=== PATIENT | female | born 1955 | race Caucasian/White ===

== ENCOUNTER 2023-04-07 15:41 | Outpatient (CLI) | payer MEDICARE, SELFPAY ==
[2023-04-10 12:48] LABS: NIL 0.01 IU/mL; Quantiferon TB Plus, 1T NEGATIVE (NEGATIVE)
== END 2023-04-07 15:42 | disposition home or self-care (01) ==
DX: Z79.899 Other long term (current) drug therapy (principal)
CPT/HCPCS: 36415; 86480

== ENCOUNTER 2023-04-26 12:13 | Emergency (ER) | payer MEDICARE, OTHER, SELFPAY ==
--- NOTE | ~2023-04-26 | XR_ITS ---
XR knee LT 3V 04/26/2023 12:49 Indication: Left knee pain Procedure: 3 views left knee Comparison: No prior studies for comparison. Findings: There is a medial unicompartmental left knee arthroplasty. There is sclerosis surrounding t he tibial component of the arthroplasty. Underlying fracture is not excluded. There is mild patellofe moral compartment osteoarthritis. No significant joint effusion. Impression: 1: Geographic sclerosis surrounding the tibial component of the left knee hemiarthroplasty. Underlyin g fracture not excluded. Reviewed, dictated and finalized at location B. Impression: 1: Geographic sclerosis surrounding the tibial component of the left knee hemia rthroplasty. Underlying fracture not excluded.
[2023-04-26 12:20] VITALS: BP 131/83; PULSE 79; RESP 18; TEMP 36.6; O2SAT 97
--- NOTE | 2023-04-26 13:08 | ED.GENADULT ---
HPI - General Adult General Chief complaint: Extremity Injury, Lower Stated complaint: Fall/knee pain Time Seen by Provider: 04/26/23 12:16 History of Present Illness HPI narrative: 67-year-old female presenting with left knee pain. Patient states she fell greater than 1 week ago. She states she fell down onto her knee. She states she has been experiencing pain in the left knee since that time. She denies any other injuries. Related Data Home Medications Medication Instructions Recorded Confirmed albuterol sulfate 90 mcg/actuation 1 puff inhalation Q4H PRN SOB 03/02/23 04/26/23 aerosol inhaler alprazolam 0.5 mg tablet 0.5 mg PO DAILY PRN Anxiety 03/02/23 04/26/23 fluticasone furoate 200 1 inh inhalation DAILY 03/02/23 04/26/23 mcg-vilanterol 25 mcg/dose inhalation powder (Breo Ellipta) gabapentin 300 mg capsule 300 mg PO DAILY PRN Pain 03/02/23 04/26/23 ibuprofen 800 mg tablet 800 mg PO BID PRN Pain 03/02/23 04/26/23 secukinumab 150 mg/mL subcutaneous 300 mg subcut .[id number] 03/02/23 04/26/23 pen injector (Cosentyx Pen 300 mg/2 Pens () Allergies Allergy/AdvReac Type Severity Reaction Status Date / Time bupropion Allergy Intermediate Hives Verified 04/26/23 12:32 cephalexin Allergy Intermediate Hives Verified 04/26/23 12:32 codeine AdvReac Mild Gastrointestinal Verified 04/26/23 12:32 Upset Prednisone Allergy Mild Other Uncoded 04/26/23 12:32 [facility] Past Medical History Medical History Allergies Anxiety Arthritis Asthma Psoriasis Family History Family History Mother Cancer Alcoholism Father Heart disease Sibling Heart disease Social History Social History Social History: Caffeine-coffee daily Years smoked: 20 Smoking status: Current every day smoker Tobacco type: cigarettes Alcohol intake: never Substance use: never Substance use type: does not use Lack of Transportation: No Lack of Food: Never True Current Housing: I Have Housing Concerned About Future Housing: No Difficulty Paying Gas/Electric Bills: No Difficulty Paying for Meds: No Currently Unemployed: No Education: Associate Degree Difficulty w/ Childcare or Family Care: No Living arrangements: with family Gender identity (if verbalized by the patient): Female Exam Narrative: Mild tenderness to palpation of the left knee. No palpable deformities. Neurovascularly intact. All other systems otherwise unremarkable and negative. Course Vital Signs Vital signs: Vital Signs Temperature 36.6 C 04/26/23 12:20 Pulse Rate 79 04/26/23 12:20 Respiratory Rate 18 04/26/23 12:20 Blood Pressure 131/83 04/26/23 12:20 Pulse Oximetry 97 04/26/23 12:20 Oxygen Delivery Room Air 04/26/23 12:20 Temperature 36.6 C 04/26/23 12:20 Pulse Rate 79 04/26/23 12:20 Respiratory Rate 18 04/26/23 12:20 Blood Pressure 131/83 04/26/23 12:20 Pulse Oximetry 97 04/26/23 12:20 Oxygen Delivery Room Air 04/26/23 12:20 Medical Decision Making MDM Narrative Medical decision making narrative: My interpretation official read of the imaging is inconclusive. Possible fracture. Could also be soft tissue injury. Will place in knee immobilizer and have patient follow Ortho. patient appears well. She is nontoxic appearing. She has no red flag symptomatology. She feels safe to proceed outpatient management. Vital Signs Vital Signs: Vital Signs Temperature 36.6 C 04/26/23 12:20 Pulse Rate 79 04/26/23 12:20 Respiratory Rate 18 04/26/23 12:20 Blood Pressure 131/83 04/26/23 12:20 Pulse Oximetry 97 04/26/23 12:20 Oxygen Delivery Room Air 04/26/23 12:20 Temperature 36.6 C 04/26/23 12:20 Pulse Rate 79 04/26/23 12:20 Respiratory Rate 18 04/26/23 12:20 Blood Pressu
[2023-04-26 13:58] VITALS: BP 106/73; PULSE 82; RESP 18; TEMP 36.8; O2SAT 96
--- NOTE | 2023-04-26 15:59 | PC.NURSE ---
On 04/26/23, the student, [SHREE BROWNING ], provided care and completed [facility] documentation on this patient. I have reviewed the student's documentation and agree with the findings.
== END 2023-04-26 14:00 | disposition home or self-care (01) ==
PROVIDERS: Emergency Provider Emergency Medicine; PCP Internal Medicine
DX: M25.562 Pain in left knee (principal); Z79.1 Long term (current) use of non-steroidal anti-inflammatories (NSAID); Z79.899 Other long term (current) drug therapy; F17.210 Nicotine dependence, cigarettes, uncomplicated; W19.XXXA Unspecified fall, initial encounter
CPT/HCPCS: 73562; 99283; L1830

== ENCOUNTER 2023-04-30 10:19 | Outpatient (CLI) | payer MEDICARE, SELFPAY ==
--- NOTE | ~2023-04-30 | CT_ITS ---
EXAMINATION: CT knee LT wo con DATE: 04/30/2023 10:50 INDICATION: Left knee pain. TECHNIQUE: Computed tomography (CT) of the left knee was performed without intravenous contrast. Auto mated exposure control and iterative reconstruction technique were employed. The dose-length product was 450.08 mGy-cm. COMPARISON: Left knee radiographs 04/26/2023 FINDINGS: There is varus angulation at the knee. There is a medial compartment arthroplasty with subs idence of the tibial component. There is periprosthetic sclerosis in the tibia. No periprosthetic dat ency. No acute fracture. There is mild osteoarthritis of lateral and patellofemoral compartments. The re is a small knee joint effusion with loose bodies. IMPRESSION: 1. Medial compartment arthroplasty with subsidence of the tibial component. 2. Mild left knee osteoarthritis. 3. Small left knee joint effusion with loose bodies. Reviewed, dictated and finalized at location E.
== END 2023-04-30 10:20 | disposition home or self-care (01) ==
LOC: CHSIMG 10:21
PROVIDERS: Visit Provider Orthopaedic Surgery
DX: S89.92XA Unspecified injury of left lower leg, initial encounter (principal); M25.562 Pain in left knee; Z96.652 Presence of left artificial knee joint; M17.12 Unilateral primary osteoarthritis, left knee; M25.462 Effusion, left knee; M23.42 Loose body in knee, left knee
CPT/HCPCS: 73700

== ENCOUNTER 2023-05-19 14:27 | Outpatient (CLI) | payer MEDICARE, OTHER, SELFPAY ==
[2023-05-19 15:28] LABS: CRP < 0.5 mg/dL (0.0-0.9)
[2023-05-19 15:45] LABS: Erythrocyte Sedimentation Rate 20 mm/hr (0-20)
== END 2023-05-19 14:28 | disposition home or self-care (01) ==
LOC: CHSLAB 14:31
PROVIDERS: PCP Family Medicine; Visit Provider Orthopaedic Surgery
DX: M25.562 Pain in left knee (principal)
CPT/HCPCS: 36415; 85652; 86140

== ENCOUNTER 2023-08-13 13:55 | Outpatient (CLI) | payer MEDICARE, OTHER, SELFPAY ==
[2023-08-13 15:32] LABS: Hemoglobin A1C 5.3 % (<5.7)
[2023-08-13 15:34] LABS: Urine Cotinine NEGATIVE
[2023-08-13 16:32] LABS: MRSA (PCR) NOT DETECTED (NOT DETECTE)
== END 2023-08-13 13:56 | disposition home or self-care (01) ==
LOC: ANHSURGERY 13:59
PROVIDERS: PCP Family Medicine; Visit Provider Orthopaedic Surgery
DX: T84.093A Other mechanical complication of internal left knee prosthesis, initial encounter (principal); Z01.818 Encounter for other preprocedural examination
CPT/HCPCS: 80307; 83036; 87081; 87641

== ENCOUNTER 2023-08-17 10:38 | Outpatient (CLI) | payer MEDICARE, OTHER, SELFPAY | END 2023-08-17 10:39 | disposition home or self-care (01) | LOC: ANHLAB 10:43 | PROVIDERS: PCP Family Medicine; Visit Provider Orthopaedic Surgery | DX: Z01.818 Encounter for other preprocedural examination (principal); T84.093A Other mechanical complication of internal left knee prosthesis, initial encounter | CPT/HCPCS: 87081 ==

== ENCOUNTER 2023-09-01 10:04 | Inpatient (IN) | payer MEDICARE, OTHER, SELFPAY ==
--- NOTE | 2023-08-13 07:45 | PC.NURSE ---
PT ATTENDED TOTAL JOINT CLASS 07/07/23 PRIOR TO SURGERY DATE SCHEDULED
--- NOTE | 2023-08-13 13:50 | PC.NURSE ---
PRE-OP INSTRUCTIONS, PLEASE READ CAREFULLY Report to the Outpatient Waiting Room, entrance under the green pavilion located off [facility], at time _0600_ on date _09/01/23_. Planned Procedure Time: _0730_. PACK A SMALL OVERNIGHT BAG AND LEAVE IN THE CAR ALONG WITH YOUR WALKER Time changes happen often and if your time is changed the preop area will call you the afternoon before. - You and your visitor will be asked to self-screen and do not enter if you have any COVID symptoms. - A mask is optional within the hospital at this time. -VISITING HOURS 8AM-8PM Patients may have clear liquids (water, carbonated beverages, clear teas, apple juice) until 3 hours prior to surgery (0430 AM) with a maximum of 20 ounces. - No food from midnight until time of surgery Take the following medications with a SIP of water the morning of surgery: __BREO ELLIPTA INHALER, & ALPRAZOLAM, GABAPENTIN, ALBUTEROL INHALER IF NEEDED DO NOT STOP ANY OF YOUR OTHER PRESCRIPTION MEDICATIONS PRIOR TO SURGERY ?EXCEPT THE FOLLOWING Medications to discontinue per DR. GEE - _IBUPROFEN 7 DAYS PRIOR TO SURGERY, Date to take last dose 08/24/23_ Medications to discontinue per ANESTHESIA - _MULTIVITAMIN & SUPPLEMENTS 3 DAYS PRIOR TO SURGERY, Date to take last dose 08/28/23_ Please no make-up, nail kazakh, hairspray, perfume, deodorant, or body powder the day of surgery. No jewelry (including any body piercings) or valuables the day of surgery, leave them at home. Please take a shower or bath the night before, or the morning of, surgery with an antibacterial soap. Wear comfortable, loose fitting clothing. - Jewelry must be removed prior to entering the operating room. Rings and piercings that are not removed may be cut off. - The hospital will not accept responsibility for valuables. - Please leave all valuables, including medications, at home the day of surgery. If you are going home after surgery, a licensed commercial front load driver must drive you home. - NO public transportation without another adult if you receive anesthesia. - We recommend that an adult stay with you for 24 hours following discharge. - We also recommend that you do not drive, make important decision, drink alcoholic beverages, or take any drugs that were not prescribed by your health care provider for at least 24 hours after your discharge time. Follow any additional instructions given to you from your surgeon. If you or anyone in your household have experienced Covid symptoms in the past week, please notify your surgeon or the nurse liaison at the phone number below for possible testing. Instructions given to _PATIENT_and asked if any additional questions and then verbalized understanding. Patient advised to call surgeon office or pre surgery nurse liaison [phone] if any additional questions.
[2023-08-13 14:24] VITALS: BP 136/70; PULSE 70; RESP 18; TEMP 36.8; O2SAT 100; BMI 34.1
--- NOTE | 2023-08-30 12:02 | PM.IMHP ---
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 Ely who presents today for revision of her left knee. She underwent partial knee replacement in 2007. She has had subsidence of the tibial component and is having severe pain in the due to that. [place] Patient has been having continued symptoms of pain in the knee and feels at this point she feels she is ready to proceed with revision on her left knee. Review of Systems Review of Systems: All systems reviewed & are unremarkable except as noted in HPI and below PMFSH Past Medical History Medical History Allergies Anxiety Arthritis Asthma Psoriasis Family History Family History Mother Cancer Alcoholism Father Heart disease Sibling Heart disease Social History Social History Social History: Caffeine-coffee daily Smoking packs per day: 1 Smoking cigarettes per day: 20.0 Years smoked: 20 Smoking pack-years: 20.00 Smoking status: Former smoker Tobacco type: cigarettes Second hand tobacco smoke exposure: No Smoking end date: 06/02/23 Additional smoking assessment comments: PT DENIES ALL FORMS OF TOBACCO USE Alcohol intake: current Alcohol use details: 2/MONTH Substance use: never Substance use type: does not use Lack of Transportation: No Lack of Food: Never True Current Housing: I Have Housing Concerned About Future Housing: No Difficulty Paying Gas/Electric Bills: No Difficulty Paying for Meds: No Currently Unemployed: No Education: Associate Degree Difficulty w/ Childcare or Family Care: No Living arrangements: with family Gender identity (if verbalized by the patient): Female Spiritual care concerns: No Meds Home Medications and Allergies Home Medications Medication Instructions Recorded Confirmed Type albuterol sulfate 90 mcg/actuation 1 puff inhalation Q4H PRN SOB 03/02/23 08/13/23 History aerosol inhaler alprazolam 0.5 mg tablet 0.5 mg PO DAILY PRN Anxiety 03/02/23 08/13/23 History fluticasone furoate 200 1 inh inhalation DAILY 03/02/23 08/13/23 History mcg-vilanterol 25 mcg/dose inhalation powder (Breo Ellipta) gabapentin 300 mg capsule 300 mg PO DAILY PRN Pain 03/02/23 08/13/23 History ibuprofen 800 mg tablet 800 mg PO BID PRN Pain 03/02/23 08/13/23 History secukinumab 150 mg/mL subcutaneous 300 mg subcut .[id number] 03/02/23 08/13/23 History pen injector (Cosentyx Pen 300 mg/2 Pens () Mortin/Tylenol See Rx Instructions .Route 08/13/23 08/13/23 History .COMPLEX PRN Pain calcipotriene 0.005 1 applic topical DAILY PRN Skin 08/13/23 08/13/23 History %-betamethasone 0.064 % topical Irritation foam (Enstilar) cholecalciferol (vitamin D3) 50 50 mcg PO DAILY 08/13/23 08/13/23 History mcg (2,000 unit) capsule coQ10 (ubiquinol) 100 mg capsule 100 mg PO DAILY 08/13/23 08/13/23 History (Qunol Victorino CoQ10) methocarbamol 750 mg tablet 750 mg PO QID PRN Pain 08/13/23 08/13/23 History multivitamin 1 tablet DAILY 08/13/23 08/13/23 History mupirocin 2 % topical ointment 1 applic topical BID PRN Skin 08/13/23 08/13/23 History Irritation triamcinolone acetonide 0.1 % 1 applic topical BID PRN Skin 08/13/23 08/13/23 History topical cream Irritation Allergies Allergy/AdvReac Type Severity Reaction Status Date / Time bupropion Allergy Intermediate Hives Verified 08/24/23 09:28 cephalexin Allergy Intermediate Hives Verified 08/24/23 09:28 codeine AdvReac Mild Gastrointestinal Verified 08/24/23 09:28 Upset Prednisone Allergy Mild Other-psorasis Uncoded 08/24/23 09:28 flare Exam Narrative: Six 8-year-old female very alert pleasant.
--- NOTE | 2023-08-31 14:40 | WPDANESEPPF ---
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 Patient Data Age: 68 Gender: F Height: 1.64 m Weight: 91.6 kg Last Vital Signs Temp 98.3 F 08/13/23 14:24 Pulse 70 08/13/23 14:24 Resp 18 08/13/23 14:24 BP 136/70 08/13/23 14:24 Pulse Ox 100 08/13/23 14:24 O2 Del Method Room Air 08/13/23 14:24 Allergies Allergy/AdvReac Type Severity Reaction Status Date / Time bupropion Allergy Intermediate Hives Verified 09/01/23 06:20 cephalexin Allergy Intermediate Hives Verified 09/01/23 06:20 prednisone Allergy Mild Psoriasis Verified 09/01/23 06:20 flare codeine AdvReac Mild Gastrointestinal Verified 09/01/23 06:20 Upset Home Medications Medication Instructions Recorded Confirmed Type albuterol sulfate 90 mcg/actuation 1 puff inhalation Q4H PRN SOB 03/02/23 09/01/23 History aerosol inhaler alprazolam 0.5 mg tablet 0.5 mg PO DAILY PRN Anxiety 03/02/23 09/01/23 History fluticasone furoate 200 1 inh inhalation DAILY 03/02/23 09/01/23 History mcg-vilanterol 25 mcg/dose inhalation powder (Breo Ellipta) gabapentin 300 mg capsule 300 mg PO DAILY PRN Pain 03/02/23 09/01/23 History ibuprofen 800 mg tablet 800 mg PO BID PRN Pain 03/02/23 09/01/23 History secukinumab 150 mg/mL subcutaneous 300 mg subcut .[id number] 03/02/23 08/13/23 History pen injector (Cosentyx Pen 300 mg/2 Pens () Mortin/Tylenol See Rx Instructions .Route 08/13/23 09/01/23 History .COMPLEX PRN Pain calcipotriene 0.005 1 applic topical DAILY PRN Skin 08/13/23 09/01/23 History %-betamethasone 0.064 % topical Irritation foam (Enstilar) cholecalciferol (vitamin D3) 50 50 mcg PO DAILY 08/13/23 09/01/23 History mcg (2,000 unit) capsule coQ10 (ubiquinol) 100 mg capsule 100 mg PO DAILY 08/13/23 09/01/23 History (Qunol Victorino CoQ10) methocarbamol 750 mg tablet 750 mg PO QID PRN Pain 08/13/23 09/01/23 History multivitamin 1 tablet DAILY 08/13/23 09/01/23 History mupirocin 2 % topical ointment 1 applic topical BID PRN Skin 08/13/23 09/01/23 History Irritation triamcinolone acetonide 0.1 % 1 applic topical BID PRN Skin 08/13/23 09/01/23 History topical cream Irritation Patient hx anesthesia problems: none Family hx anesthesia problems: none Results Review: All pre-operative results and documents have been reviewed as part of the pre-operative evaluation. [facility] Past Medical History Medical History Allergies Anxiety Arthritis Asthma Psoriasis Family History Family History Mother Cancer Alcoholism Father Heart disease Sibling Heart disease Social History Social History Social History: Caffeine-coffee daily Smoking packs per day: 1 Smoking cigarettes per day: 20.0 Years smoked: 20 Smoking pack-years: 20.00 Smoking status: Former smoker Tobacco type: cigarettes Second hand tobacco smoke exposure: No Smoking end date: 06/02/23 Additional smoking assessment comments: PT DENIES ALL FORMS OF TOBACCO USE Alcohol intake: current Alcohol use details: 2/MONTH Substance use: never Substance use type: does not use Lack of Transportation: No Lack of Food: Never True Current Housing: I Have Housing Concerned About Future Housing: No Difficulty Paying Gas/Electric Bills: No Difficulty Paying for Meds: No Currently Unemployed: No Education: Associate Degree Difficulty w/ Childcare or Family Care: No Living arrangements: with family Gender identity (if verbalized by the patient): Female Spiritual care concerns: No Anes - Eval Final PreProcedure Day of Procedure
[2023-09-01] VITALS (12 sets, daily range): BP systolic 118–147; BP diastolic 52–72; PULSE 60–87; RESP 12–20; TEMP 36.2–36.9; O2SAT 97–100
--- NOTE | ~2023-09-01 | XR_ITS ---
XR_[id number] DATE: 09/01/2023 13:39 INDICATION: Revision of left total knee TECHNIQUE: Portable views including AP and crosstable lateral projections COMPARISON: None FINDINGS: Status post left knee arthroplasty with normal alignment of the femoral and tibial componen ts. No fracture or dislocation. There is expected subcutaneous and intra-articular emphysema shortly postoperatively. IMPRESSION: Left knee arthroplasty Reviewed, dictated and finalized at [facility]. Reviewed, dictated and finalized at [facility]. SON GEAR GENERATOR IMPRESSION: Left knee arthroplasty
[2023-09-01] MEDS: ACETAMINOPHEN 500 MG TABLET 1000 MG PO (06:29)
[2023-09-01] MEDS: LACTATED RINGERS 1,000 ML 30 ML IV CONT ×2 (06:50→13:34)
[2023-09-01] MEDS: VANCOMYCIN 1,250 MG/NS 250 ML BAG 166.67 MG IVPB (06:51)
--- NOTE | 2023-09-01 07:12 | WPDHPUPDATE1 ---
History and Physical Update Update Date/Time: 09/01/23 07:12 History and Physical has been reviewed, including an updated exam of the patient. There are NO changes in the patient's condition. Risks, benefits, and alternatives have been discussed and questions answered. Patient agrees to proceed with procedure.
[2023-09-01] MEDS: TRANEXAMIC ACID 1,000MG/ISO100 1,000 MG/100 ML BAG 200 MG IVPB (07:17)
[2023-09-01] MEDS: AZTREONAM 2 GM in SODIUM CHLORIDE 0.9% IV 100 ML 200 ML IVPB ×2 (07:50→12:19)
[2023-09-01] MEDS: VANCOMYCIN HCL 1,000 MG VIAL 1000 MG IRRIGATION (08:19)
[2023-09-01] MEDS: GENTAMICIN BONE CEMENT REFOBACIN 2 EACH TOPICAL (12:05)
[2023-09-01] MEDS: TRANEXAMIC ACID 1,000 MG/10 ML AMPUL 1000 MG IV PUSH (12:52)
--- NOTE | 2023-09-01 13:43 | PM.OP ---
Procedure Note - Brief Procedure Note - Brief Date of procedure: 09/01/23 failed L partial knee replacement Procedure performed: Revision left total knee arthroplasty Surgeon: MILAD Fisher Description of procedure: [age]-year-old female who underwent revision of her partial knee replacement left knee to a total knee replacement. Underwent the procedure on 09/01. I was involved in the procedure including positioning the patient on the OR table and 1st assisting to the time of surgery. Total time spent was 7 hours
[2023-09-01] MEDS: fentaNYL CITRATE INJ (*CRX) 100 MCG/2 ML VIAL 25 MCG IV PUSH ×4 (14:01→14:20)
[2023-09-01] MEDS: ONDANSETRON INJ 4 MG/2 ML VIAL IV PUSH (16:05)
[2023-09-01] MEDS: AZTREONAM 1 GM in SODIUM CHLORIDE 0.9% IV 50 ML 100 ML IVPB (16:06)
[2023-09-01] MEDS: ACETAMINOPHEN 325 MG TABLET 650 MG PO ×2 (16:07→19:39)
[2023-09-01] MEDS: oxyCODONE HCL (*CRX) 5 MG TAB IR PO ×2 (16:07→19:39)
[2023-09-01] MEDS: SENNA/DOCUSATE SODIUM TABLET 2 TAB PO (16:08)
--- NOTE | 2023-09-01 18:32 | W.PM.PROC2 ---
Procedure Note - Detailed Date of Procedure 09/01/23 Pre-op Diagnosis failed L partial knee replacement Post-op Diagnosis Same Procedure Performed Revision total knee arthroplasty left knee Surgeon Judah Gonzalez MD [employer] Specialist Vanessa Anesthesia General Description of Procedure Patient was brought to the operating room and general anesthesia was administered. The left knee was prepped draped usual fashion. She received 2 g of Aztreonam and weight based vancomycin preoperatively. Allergy to Keflex. The knee came out to full extension. She had medial pseudolaxity with endpoint due to the subsidence tibial implant. Limb was exsanguinated tourniquet elevated to 300 mmHg. Previous partial knee replacement incision was used and extended proximally for a standard parapatellar approach. A standard parapatellar arthrotomy was used. Quadriceps synovectomy was carried out and we were able to gradually kiki the patella without rectus snip. The patella had mild tomoderate medial facet cartilage loss that the far medial facet but cartilage of the apex and lateral facet was in good condition and I felt the patella was appropriate for non resurfacing provided that tracked properly. A limited lateral facetectomy was performed. Whitesides line was drawn on the femur. A guide cristobal was inserted down the femoral canal after aspiration of canal contents using the 5 degree valgus cutting bushing, 8 mm of bone removed the distal femur. This removed the same amount medially and laterally. The medial distal femoral cut was carried out until we had the anterior fixation peg of the femoral component which was well fixed. There was no granulation tissue in the knee and I did not see any good tissue that would be suitable for sending for culture biopsy. There was minimal clear effusion. We skeletonized the femoral component using a micro sagittal saw flexible quarter-inch osteotomes and when we had fixation essentially limited to the to fixation pegs, we applied the slap hammer device from the [place] partial knee replacement set and gently disimpacted the femoral component in line with the pegs and it came out without disrupting any of the bone stock. We had removed the tibial polyethylene insert already and we now addressed our attention to the tibial component. Tibial component had subsided into the medial tibial plateau was in prominent varus and mild anterior slope. We carefully peeled the medial capsule to a point just below the low point of the subsides defect in the medial tibial plateau. A microsagittal saw was used to eliminate the cement between the bone and prosthesis anteriorly and we removed the bone peripheral to the tibial component and we then inserted a 3 quarter-inch osteotome i under the anterior aspect of the tibial component and then used the stacked osteotome technique the half-inch osteotome above 3/4 inch and this gently lever the tibial component upward. There was a dense fibrous interface and the cement mantle came up with the tibial component. This left a sclerotic bone bed where there was dense sclerosis of the tibial plateau not to side of the component but throughout the metaphysis as we saw on the x-rays and CT scan. Next, the tibial plateau was cut. We removed between 9 and 10 mm of bone from the lateral plateau. Alignment and slope were confirmed. This left the substantial defect medially of course. We then applied the femoral sizing guide the distal femur. The mediolateral with was appropriate for the 62.5 vanguard femoral component. Bone density the femur was excellent as it was in the tibial plateau as well. We applied the femoral sizing guide at 4? of external rotation and this appeared to give appropriate sizing relative to the anterior cortex when the guide was rotated according to Whitesides line which gave us about a 7 mm space between the posterior aspect of the remaining medial femoral condyle which seemed appropriate this was pinned th
[2023-09-01] MEDS: VANCOMYCIN 1,000 MG/NS 250 ML 1,000 MG/250 ML BAG 250 MG IVPB (19:38)
[2023-09-01] MEDS: FAMOTIDINE 20 MG TABLET PO (19:44)
--- NOTE | 2023-09-01 20:20 | WPDCN ---
Assessment and Plan Assessment and plan (1) Failed total knee replacement: Code(s): T84.018A - Broken internal joint prosthesis, other site, initial encounter; Z96.659 - Presence of unspecified artificial knee joint Status: Acute Assessment and Plan: Postoperative day 0 status post revision left partial knee. Wound care, pain control, and DVT prophylaxis deferred to Dr. Gonzalez. (2) Psoriasis: Code(s): L40.9 - Psoriasis, unspecified Status: Acute Assessment and Plan: Resume Cosentyx when okay with surgeon. (3) Asthma: Code(s): J45.909 - Unspecified asthma, uncomplicated Status: Acute Assessment and Plan: No acute issues. Continue maintenance inhalers as prescribed. (4) Anxiety: Code(s): F41.9 - Anxiety disorder, unspecified Status: Acute Assessment and Plan: Resume alprazolam as needed. Plan Thank you for allowing us to participate in this patient's care. Please do not hesitate to contact us with any questions. HPI Data of Consult Date/Time: 09/01/23 20:20 Requesting Physician: Judah Gonzalez MD Consult Narrative Reason for consult: Medical management. Narrative: This is a very pleasant 68-year-old female with psoriasis on Cosentyx, asthma, anxiety, and arthritis whom the hospitalist service has been consulted for management of her medical conditions postoperatively. She underwent partial knee replacement 2007 and has had substance of the tibial component which is causing her severe pain. Due to continued symptoms she elected for revision today. Her surgery was performed under general anesthesia with no immediate complications documented an estimated blood loss of 400 cc. Her pain has been pretty well controlled but the block is starting to wear off. She has been getting up with therapy and is doing well. No fever, chills, sweats, chest pain, shortness a breath, nausea, or vomiting. Review of Systems Review of Systems: Twelve systems were reviewed. No history of venous thromboembolism. Except as documented, all other systems were reviewed and are negative. [facility] Past Medical History Medical History Allergies Anxiety Arthritis Asthma Mixed hearing loss, bilateral Psoriasis Surgical History Surgical History History of arthroscopy of both shoulders History of bowel resection For diverticulitis. History of hysterectomy History of lumbar fusion L4-S1. History of open reduction and internal fixation (ORIF) procedure Left hand. History of partial knee replacement (2007) Revision of failed left partial knee on 09/01/2023. History of right knee joint replacement Family History Family History Mother Cancer Alcoholism Father Heart disease Sibling Heart disease Social History Social History Social History: Surrogate medical decision maker: Jerald Sepulveda, spouse. Code status: Full code. Smoking packs per day: 1 Smoking cigarettes per day: 20.0 Years smoked: 20 Smoking pack-years: 20.00 Smoking status: Former smoker Second hand tobacco smoke exposure: No Alcohol intake: current Alcohol use details: 2 alcoholic beverages a month Substance use: never Substance use type: does not use Do You Feel Safe in your Home?: Yes Lack of Transportation: No Lack of Food: Never True Current Housing: I Have Housing Concerned About Future Housing: No Difficulty Paying Gas/Electric Bills: No Difficulty Paying for Meds: No Currently Unemployed: No Education: Associate Degree Difficulty w/ Childcare or Family Care: No Additional living arrangements comments: Lives with spouse in [place]. Additional occupation/education comments: Retired. [employer]
[2023-09-01] MEDS: FLUTICASONE/SALMETEROL 230-21 MCG INHALER 1 PUFF 2 PUFF INHALATION (20:50)
[2023-09-02] MEDS: AZTREONAM 1 GM in SODIUM CHLORIDE 0.9% IV 50 ML 100 ML IVPB ×2 (00:05→07:55)
[2023-09-02] MEDS: oxyCODONE HCL (*CRX) 5 MG TAB IR PO ×4 (00:07→10:56)
[2023-09-02] MEDS: ACETAMINOPHEN 325 MG TABLET 650 MG PO ×4 (00:07→10:55)
[2023-09-02 01:00] VITALS: BP 118/55; PULSE 76; RESP 18; TEMP 36.2; O2SAT 96
[2023-09-02 05:31] VITALS: BP 101/59; PULSE 63; RESP 21; TEMP 36.4; O2SAT 100
[2023-09-02] MEDS: diphenhydrAMINE HCl INJ 50 MG/ML VIAL 25 MG IV PUSH (06:20)
[2023-09-02] MEDS: VANCOMYCIN 1,000 MG/NS 250 ML 1,000 MG/250 ML BAG 250 MG IVPB (06:21)
[2023-09-02 06:50] LABS: Basophils Percent Auto 0.2 % (0.2-1.2); Hematocrit 30.7 % (37.0-47.0); Hemoglobin 9.8 g/dL (12.0-15.0); Immature Granulocyte Absolute 0.04 K/mm3 (0.00-0.031); Immature Granulocyte Percent A 0.3 % (0-0.5); Lymphocytes Absolute Auto 1.59 K/mm3 (0.9-3.2); Lymphocytes Percent Auto 11.6 % (18.3-44.2); Mean Corpuscular HGB Conc 31.9 g/dl (32-36); Mean Corpuscular Hemoglobin 30.2 pg (26-34); Mean Corpuscular Volume 94.5 fl (80-100); Mean Platelet Volume 9.9 fl (7.4-10.4); Monocytes Absolute Auto 1.1 K/mm3 (0.1-0.6); Neutrophils Percent Auto 79.9 % (45.5-73.1); Platelet Count Result 134 k/mm3 (150-375); Red Blood Count 3.25 M/mm3 (4.2-5.4); Red Cell Distribution Width 14.6 % (11.5-14.5); White Blood Count 13.7 K/mm3 (4.5-10.0)
[2023-09-02 07:07] LABS: Anion Gap 4 mmol/L (8-16); Blood Urea Nitrogen 21 mg/dL (7-17); Calcium 8.6 mg/dL (8.4-10.2); Carbon Dioxide 27 mmol/L (22-30); Chloride 109 mmol/L (98-107); Estimated CRCL calculation 76 ml/min; Estimated Glomerular Filt Rate > 60; Glucose 110 mg/dL (65-110); Magnesium 2.1 mg/dL (1.6-2.3); Potassium 3.9 mmol/L (3.4-5.0); Sodium 140 mmol/L (137-145)
--- NOTE | 2023-09-02 07:46 | WPDANESPN ---
Anes - Prog Note Post-Op Date/Time: 09/02/23 07:46 Cardiovascular status: normal Respiratory status: normal Airway patency: baseline Mental status: baseline Post-Op hydration status: normal Vital Signs: Last Vital Signs Temp 97.2 F L 09/02/23 01:00 Pulse 76 09/02/23 01:00 Resp 18 09/02/23 01:00 BP 118/55 L 09/02/23 01:00 Pulse Ox 96 09/02/23 01:00 O2 Del Method Room Air 09/01/23 14:45 O2 Flow Rate 8 09/01/23 13:50 Pain Score (VAS): 0/10 I/O: Intake & Output 09/01/23 09/01/23 09/02/23 15:59 23:59 07:59 Intake Total 750 1040 Balance 750 1040 Laboratory Tests 09/02/23 06:38 09/02/23 06:38 09/02/23 06:38 WBC 13.7 H RBC 3.25 L Hgb 9.8 L Hct 30.7 L MCV 94.5 MCH 30.2 MCHC 31.9 L RDW 14.6 H Plt Count 134 L MPV 9.9 Immature Gran % (Auto) 0.3 Neut % (Auto) 79.9 H Lymph % (Auto) 11.6 L [place] % (Auto) 8.0 Eos % (Auto) 0.0 Baso % (Auto) 0.2 Lymph # (Auto) 1.59 [place] # (Auto) 1.1 H Eos # (Auto) 0.0 Baso # (Auto) 0.0 Abs Immat Gran (auto) 0.04 H Absolute Neuts (auto) 11.0 H Absolute Nucleated RBC 0.0 Nucleated RBC % 0.0 Sodium 140 Potassium 3.9 Chloride 109 H Carbon Dioxide 27 Anion Gap 4 L BUN 21 H Creatinine 0.70 Estim Creat Clear Calc 76 Estimated GFR > 60 Glucose 110 Calcium 8.6 Magnesium 2.1 Post-procedural complaints: none Patient Feedback: Patient satisfied with anesthetic care.
[2023-09-02] MEDS: CELECOXIB 200 MG CAPSULE PO (08:09)
[2023-09-02] MEDS: DOXYCYCLINE HYCLATE 100 MG TABLET PO (08:09)
[2023-09-02] MEDS: FAMOTIDINE 20 MG TABLET PO (08:09)
[2023-09-02] MEDS: SENNA/DOCUSATE SODIUM TABLET 2 TAB PO (08:09)
[2023-09-02] MEDS: polyethylene glycoL 3350 17 GM POWD.PACK PO (08:09)
[2023-09-02] MEDS: APIXABAN 2.5 MG TABLET PO (08:09)
[2023-09-02] MEDS: CHOLECALCIFEROL 1,000 UNITS TABLET 2000 UNITS PO (08:11)
[2023-09-02] MEDS: FLUTICASONE/SALMETEROL 230-21 MCG INHALER 1 PUFF 2 PUFF INHALATION (09:31)
--- NOTE | 2023-09-02 10:57 | PM.PNORT ---
Progress Note: A&P Assessment and Plan (1) History of revision of total replacement of left knee joint: Code(s): Z96.652 - Presence of left artificial knee joint Status: Acute Plan patient is doing very well postop day 1 today at bedside we went over the complete total knee discharge instructions as follows: JANICE GEE M.D [facility], [place] [address] [place] [address] POST-OPERATIVE DISCHARGE INSTRUCTIONS TOTAL KNEE ARTHROPLASTY 1. When resting, do not rest in the chair.When resting, lie on your back, with back flat on the couch or bed, with leg elevated above heart to minimize swelling. You may put a pillow under your head. . Significant swelling could indicate a blood clot and if this occurs call the office (or go to the ER) to have a venous ultrasound. Therefore, do not rest in a chair. 2. At least five times a day spend several minutes stretching your knee into flexion while sitting in the chair and also stretching your knee out straight The abilities to bend your knee fulling and straighten your knee fully are two most important knee functions to focus on during your recovery. 3. It is ok to sit in chair to eat, use the toilet and receive a guest and to do your stretching exercises, but, sitting in a chair will cause your leg to swell. Therefore, avoid additional time sitting in the chair. and don't rest in the chair. 4. Wound Care: Nursing will give you an additional Mepilex dressing at the time of discharge. Patient to remove the dressing and apply a new Mepilex dressing at home 7 days after surgery and leave the dressing on until seen in office. 5. May shower with a Mepilex dressing in place.The water will run off the dressing. 6. Unless you are told otherwise, you may put full weight on your operated leg. Use a walker for balance and practice walking as normally as you can, ideally for a few minutes every hour while you are awake. 7. I would advise against putting ice packs on your knee incision. Ice constricts blood flow which can impar healing of the knee incision. IMPORTANT: Remember not to sit in the chair for more than 30 minutes at a time. As a rule, during the first 14 days after surgery, only sit in the chair to work on the chair knee bending stretch exercise, for meals or for use of the restroom. Sitting in the chair promotes significant swelling in the knee and leg which will make your knee stiff and more painful and which simulates having a blood clot in the veins of the leg. If this type of significant diffuse swelling occurs, an ultrasound at the hospital will be necessary to rule out a blood clot. Be up walking around with the walker for a few minutes every hour while awake and then rest laying on your back on the couch or in bed with your leg elevated on cushions or pillows. Do not rest in the chair. The patient will resume her home medication except for cosentix which she will hold off on for now. We cover the medications in detail today see discharge orders. The patient voiced understanding and agrees above plan she is ready for discharge to home. Subjective Subjective Date/Time Seen: 09/02/23 10:57 Interval history: Patient was seen today postop day 1 status post revision left total knee arthroplasty. Patient is doing very well. Walked in therapy easily today with the walker no complaints. Pain is well controlled. Vital signs are stable she is afebrile heating sleeping well. She is ready for discharge home by her report. Review of Systems Review of Systems: Ten point review of systems negative Exam Narrative: vital signs stable afebrile and neurovascularly intact wound clean and dry left knee calves are benign alert oriented x3. Normal mood and affect. Pain well controlled. Ambulating easily with a walker in therapy today. No other complaints. Objective Data Vital Signs Vital Signs: Vital
--- NOTE | 2023-09-02 11:15 | PM.DS ---
DS: Admitting Diagnosis Discharge Date September 02, 2023 Admitting Diagnosis admitting diagnosis-failed Uni arthroplasty left knee discharge Diagnosis same status post revision to a left total knee arthroplasty. DS: Summary Hospital Course Hospital Course: The patient was admitted overnight for observation and pain control status post revision to a left total knee arthroplasty performed by Dr. Gonzalez. surgery was performed September 01, 2023. Postop day 1 the patient was doing very well pain was well-controlled vital signs are stable she was afebrile and neurovascularly intact wound clean and dry calves benign she is alert oriented x3. Normal mood and affect. Eating and sleeping well. Was up ambulating independently with a walker weight-bearing as tolerated was able walk several 100 ft in therapy and quite comfortable. At bedside today we went over the discharge instructions as listed below. She was to be discharged home in good condition September 02, 2023 she will have outpatient physical therapy in [facility] starting tomorrow. She will follow up with Dr. Gonzalez in 2 weeks for recheck and call the office immediately at [phone] for any problems difficulties or questions she voiced understanding and agrees with the above plan. Time Spent with Patient Time attestation: Total time spent providing and/or coordinating discharge services: Exam Narrative: Vital signs stable afebrile neurovascular intact wound clean and dry calves benign alert oriented x3. Normal mood and affect. Ambulating well in therapy pain well controlled no complaints postop day 1. DS: Data Data Completed and Pending Labs on day of discharge: Labs from last 24 hours 09/02/23 06:38 WBC 13.7 H RBC 3.25 L Hgb 9.8 L Hct 30.7 L MCV 94.5 MCH 30.2 MCHC 31.9 L RDW 14.6 H Plt Count 134 L MPV 9.9 Immature Gran % (Auto) 0.3 Neut % (Auto) 79.9 H Lymph % (Auto) 11.6 L Motley % (Auto) 8.0 Eos % (Auto) 0.0 Baso % (Auto) 0.2 Lymph # (Auto) 1.59 Motley # (Auto) 1.1 H Eos # (Auto) 0.0 Baso # (Auto) 0.0 Abs Immat Gran (auto) 0.04 H Absolute Neuts (auto) 11.0 H Absolute Nucleated RBC 0.0 Nucleated RBC % 0.0 Sodium 140 Potassium 3.9 Chloride 109 H Carbon Dioxide 27 Anion Gap 4 L BUN 21 H Creatinine 0.70 Estim Creat Clear Calc 76 Estimated GFR > 60 Glucose 110 Calcium 8.6 Magnesium 2.1 Procedures/Treatments: Revision of a failed Uni arthroplasty left knee to a left total knee arthroplasty Discharge Plan Discharge Patient Disposition: Home, Self-Care Discharge Instructions: JANICE GONZALEZ M.D [facility], [place] [id number] [place] [address] POST-OPERATIVE DISCHARGE INSTRUCTIONS TOTAL KNEE ARTHROPLASTY 1. When resting, do not rest in the chair.When resting, lie on your back, with back flat on the couch or bed, with leg elevated above heart to minimize swelling. You may put a pillow under your head. . Significant swelling could indicate a blood clot and if this occurs call the office (or go to the ER) to have a venous ultrasound. Therefore, do not rest in a chair. 2. At least five times a day spend several minutes stretching your knee into flexion while sitting in the chair and also stretching your knee out straight The abilities to bend your knee fulling and straighten your knee fully are two most important knee functions to focus on during your recovery. 3. It is ok to sit in chair to eat, use the toilet and receive a guest and to do your stretching exercises, but, sitting in a chair will cause your leg to swell. Therefore, avoid additional time sitting in the chair. and don't rest in the chair. 4. Wound Care: Nursing will give you an additional Mepilex dressing at the time of discharge. Patient to remove the dressing and apply a new Mepilex dressing at home 7 days after surgery and leave the dressing on until seen in office. 5. M
== END 2023-09-02 14:45 | disposition home or self-care (01) | DRG 468 ==
LOC: ANH3MED 09-02 07:23
PROVIDERS: Physician Assistant Surgical; Admitting Provider Orthopaedic Surgery; PCP Family Medicine; Visit Provider Orthopaedic Surgery
PROC: 0SPD0JZ Removal of Synthetic Substitute from Left Knee Joint, Open Approach (ICD-10-PCS; CPT 27487; principal; 2023-09-01 07:30)
DX: T84.093A Other mechanical complication of internal left knee prosthesis, initial encounter (principal); Z96.653 Presence of artificial knee joint, bilateral; F41.9 Anxiety disorder, unspecified; J45.909 Unspecified asthma, uncomplicated; L40.9 Psoriasis, unspecified; M19.90 Unspecified osteoarthritis, unspecified site; Z87.891 Personal history of nicotine dependence; Z90.710 Acquired absence of both cervix and uterus; Z98.1 Arthrodesis status
CPT/HCPCS: 36415; 73560; 80048; 83735; 85025; 86850; 86900; 86901; 94640; 97110; 97116; 97161; 97165; A9270; C1713; C1776; J0171; J0457; J1100; J1170; J1200; J1580; J1596; J1885; J2250; J2270; J2405; J2704; J2710; J2795; J3010; J3370; J7120

== ENCOUNTER 2023-09-06 09:59 | Outpatient (RCR) | payer MEDICARE, OTHER, SELFPAY ==
--- NOTE | 2023-09-06 13:16 | OPREHPOC ---
Outpatient Therapy Plan of Care This is a Multidisciplinary Plan of Care that may contain components documented by all disciplines (PT, OT, and ST.) PT Problem 1 PT Problem #1 Knowledge Deficit PT Goal 1 Goal Patient to demonstrate independence with HEP Target Visit 6 PT Problem 2 PT Problem #2 Pain PT Goal 1 Goal 1. Patient to report highest pain at 2/10 2. Patient to report ability to sleep through the night with no disturbance due to L knee pain Target Visit 12 PT Problem 3 PT Problem #3 Impaired Range of Motion PT Goal 1 Goal Patient to demonstrate 0-120 deg of L knee ROM to return to stair navigation at PLOF Target Visit 12 PT Problem 4 PT Problem #4 Impaired Strength PT Goal 1 Goal Patient to demonstrate 5/5 L knee strength to return to standing up out of a chair and getting into bed at PLOF Target Visit 12 PT Problem 5 PT Problem #5 Impaired Functional Mobil PT Goal 1 Goal 1. Patient to improve LEFS by 20% 2. Patient to return to ambulation with no AD 3. Patient to complete 600' during 6 min walk test
--- NOTE | 2023-09-06 13:16 | PTOPEVAL1 ---
Assessment and note entered by Charu Dunne DPT Evaluation Information Assessment Status Evaluation Diagnosis L knee pain Onset 09/01/23 Subjective Information Patient underwent L replacement on 09/01/23. She presents today with FWW. She reports she had a previous partial replacement over 15 years ago. She reports she did not use an AD prior. Patient has difficulty getting up out of a chair, initiating gait, navigating steps and dressing. She reports she is retired. She returns to MD on . Reported Pain Level Pain Score 3: Self Report Assessment PT Clinical Summary Mrs. Sepulveda is a 68 year old female who presents to PT with L knee pain s/p L TKA. Patient demonstrates decreased L knee strength and ROM limiting her ability to stand up from a chair, get into bed, ambulate prolonged distances and complete house hold tasks. She would benefit from skilled PT to address impairments and return to PLOF. Plan of Care Interventions Electrical Stimulation,Gait Training,Hot Pack/Cold Pack,Manual Therapy,Neuro Re-education,Patient/ Caregiver Educati,Therapeutic Activities, Therapeutic Exercise PT Services Indicated Yes Treatment Frequency and 2x weekly for 12 visits Duration These treatments will address the objective and functional deficits as defined above. The patient will be advanced safely and appropriately in order for the patient to progress towards his/her prior level of function. Additional exercises will be introduced and as well as a comprehensive home exercise program upon discharge, if needed, ?to ensure carryover of functional gains achieved in the clinic. This treatment plan has been reviewed and agreement upon by the patient.
--- NOTE | 2023-10-06 12:23 | OPREHPOC ---
Outpatient Therapy Plan of Care This is a Multidisciplinary Plan of Care that may contain components documented by all disciplines (PT, OT, and ST.) PT Problem 1 PT Problem #1 Knowledge Deficit PT Goal 1 Goal Patient to demonstrate independence with HEP Target Visit 6 Progress Met PT Problem 2 PT Problem #2 Pain PT Goal 1 Goal 1. Patient to report highest pain at 2/10 2. Patient to report ability to sleep through the night with no disturbance due to L knee pain Target Visit 16 PT Problem 3 PT Problem #3 Impaired Range of Motion PT Goal 1 Goal Patient to demonstrate 0-120 deg of L knee ROM to return to stair navigation at PLOF Target Visit 16 Progress Partially Met PT Problem 4 PT Problem #4 Impaired Strength PT Goal 1 Goal Patient to demonstrate 5/5 L knee strength to return to standing up out of a chair and getting into bed at PLOF Target Visit 16 PT Problem 5 PT Problem #5 Impaired Functional Mobil PT Goal 1 Goal 1. Patient to improve LEFS by 20% 2. Patient to return to ambulation with no AD. met 3. Patient to complete 600' during 6 min walk test . met Target Visit 16 Progress Partially Met PT Goal 2 Goal 1. patient to ambulate with normal gait mechanics and no deviations 2. patient to ambulate up and down steps reciprocally. 3. patient to ambulate 1200ft or more in 6 minute walk test Target Visit 16
--- NOTE | 2023-10-06 12:23 | PTOPPROG ---
Assessment and note entered by JT File, PT Evaluation Information Assessment Status Progress Diagnosis L knee pain Onset 09/01/23 Subjective Information patient reports the knee is improving. however, she reports it is still tight in bending. she reports she is moving a bit slower today due to a flare up of back pain that began yesterday. she reports she returns to the MD next week, and would like to continue skilled PT for a little while after her follow up with him to continue to strengthen the knee, improve her rom, and improve her walking. Assessment PT Clinical Summary mrs. clark presents to skilled PT for her 10th skilled PT visit s/p L TKA. she presents today with improved rom of the L knee, improve gait mechanincs, and progress towards several goals. however, she still lacks achievement of goals for strength, rom, pain, ambulation mechanics, and functional mobility. she return to her MD for follow up next week. she would benefit from continued skilled PT with an updated POC for more visits to allow patient to achieve all objective/ functional goals prior to DC from skilled PT. Plan of Care Interventions Electrical Stimulation,Gait Training,Hot Pack/Cold Pack,Manual Therapy,Neuro Re-education,Patient/ Caregiver Educati,Therapeutic Activities, Therapeutic Exercise PT Services Indicated Yes Treatment Frequency and continue skilled PT 2x weekly for 6 more visits Duration after todays progress/re-evaluation. These treatments will address the objective and functional deficits as defined above. The patient will be advanced safely and appropriately in order for the patient to progress towards his/her prior level of function. Additional exercises will be introduced and as well as a comprehensive home exercise program upon discharge, if needed, ?to ensure carryover of functional gains achieved in the clinic. This treatment plan has been reviewed and agreement upon by the patient.
--- NOTE | 2023-11-01 12:44 | OPREHPOC ---
Outpatient Therapy Plan of Care This is a Multidisciplinary Plan of Care that may contain components documented by all disciplines (PT, OT, and ST.) PT Problem 1 PT Problem #1 Knowledge Deficit PT Goal 1 Goal Patient to demonstrate independence with HEP Target Visit 6 Progress Met PT Problem 2 PT Problem #2 Pain PT Goal 1 Goal 1. Patient to report highest pain at 2/10 2. Patient to report ability to sleep through the night with no disturbance due to L knee pain Target Visit 16 Progress Partially Met PT Problem 3 PT Problem #3 Impaired Range of Motion PT Goal 1 Goal Patient to demonstrate 0-120 deg of L knee ROM to return to stair navigation at PLOF Target Visit 16 Progress Met PT Problem 4 PT Problem #4 Impaired Strength PT Goal 1 Goal Patient to demonstrate 5/5 L knee strength to return to standing up out of a chair and getting into bed at PLOF Target Visit 16 Progress Met PT Problem 5 PT Problem #5 Impaired Functional Mobil PT Goal 1 Goal 1. Patient to improve LEFS by 20% 2. Patient to return to ambulation with no AD. met 3. Patient to complete 600' during 6 min walk test . met Target Visit 16 Progress Partially Met PT Goal 2 Goal 1. patient to ambulate with normal gait mechanics and no deviations. met 2. patient to ambulate up and down steps reciprocally. met 3. patient to ambulate 1200ft or more in 6 minute walk test Target Visit 16 Progress Partially Met
--- NOTE | 2023-11-01 12:44 | PTOPDC ---
Assessment and note entered by JT File, PT Evaluation Information Assessment Status Evaluation Diagnosis L knee pain Onset 09/01/23 Subjective Information patient reports she feels Good today. she reports she has no limitations in her activities at home or in the community. she reports it will feel tight some mornings, but she uses her exercises and bike at home to loosen up. she reports she has a follow up with the surgeon in a few weeks. Reported Pain Level Pain Score 0,2: Self Report Assessment PT Clinical Summary mrs. clark presents to skilled PT for her 16th skilled PT visit today. she presents with full L knee rom, full L knee strength, and normal ambulation and stair ambulation. she has met majority of goals, and made partial achievement of all other goals in skilled PT. at this time, patient will DC skilled PT and continue with HEP independent at home. she was educated to follow up with PT if she has a regression/setback or symptoms arise. Plan of Care PT Services Indicated Yes
== END 2023-11-01 12:56 | disposition home or self-care (01) ==
LOC: CHSPT 09:59
PROVIDERS: Visit Provider Orthopaedic Surgery
DX: Z47.1 Aftercare following joint replacement surgery (principal); T84.033D Mechanical loosening of internal left knee prosthetic joint, subsequent encounter; Z96.652 Presence of left artificial knee joint
CPT/HCPCS: 97016; 97110; 97112; 97140; 97161; 97530

== ENCOUNTER 2024-02-28 13:20 | Outpatient (RCR) | payer MEDICARE, OTHER, SELFPAY ==
--- NOTE | 2024-02-28 14:40 | OPREHPOC ---
Outpatient Therapy Plan of Care This is a Multidisciplinary Plan of Care that may contain components documented by all disciplines (PT, OT, and ST.) PT Problem 1 PT Problem #1 Knowledge Deficit PT Goal 1 Goal 1. independent and compliant with HEP Target Visit 6 PT Problem 2 PT Problem #2 Pain PT Goal 1 Goal 1. decrease pain at worst to 2/10 or less in the lower back 2. reduction of all radicular LE symptoms. Target Visit 12 PT Problem 3 PT Problem #3 Impaired Range of Motion PT Goal 1 Goal 1. active lumbar flexion to ankles without increased pain 2. 100% arom lumbar side bending bilaterally without pain 3. no catch in the lower back with arom lumbar flexion to extension transition Target Visit 12 PT Problem 4 PT Problem #4 Impaired Functional Mobil PT Goal 1 Goal 1. patient to perform sit to stand transfers without pain. 2. oswestry to display 20% or less functional deficits 3. patient to look over shoulder when driving and standing without pain. Target Visit 12
--- NOTE | 2024-02-28 14:40 | PTOPEVAL1 ---
Assessment and note entered by JT File, PT Evaluation Information Assessment Status Evaluation Diagnosis acute bilateral low back pain with bilateral sciatica Other ICD-10 Condition Codes ( M54.42; M54.41 PT) Onset 02/18/24 Subjective Information patient reports she is improving as when this first started she was walking and standing hunched over. she reports initially the pain was a 10/10, but is now down to a 3-4/10. she reports the pain began on 02/18/24. she reports she woke up with mm spasms on the L side. she reports the next morning she woke up and her pain was terrible radiating down both buttocks. she reports the pain goes down to the knee on the R side. she reports the pain goes down to the buttock. she reports she had fusion of L4-S1 about 25 years ago. she reports she has increased pain with transition from sitting to standing, turning to look over her shoulders (especially when driving). Reported Pain Level Pain Score 4: Self Report Assessment PT Clinical Summary mrs. clark is a 68 yo woman who presents to skilled PT services for evaluation and treatment of lumbar spine pain and bilateral sciatica. she presents today with increased symptoms during arom lumbar movement and transition in posture. she displays decreased active lumbar flexion and L sidebending, weakness in the hips, and weakness in the core. she would benefit from continued skilled PT to improve her objective/functional deficits and progress towards a return to her prior level functional activity performance/ quality of life. Plan of Care Interventions Electrical Stimulation,Hot Pack/Cold Pack,Manual Therapy,Neuro Re-education,Patient/Caregiver Educati,Therapeutic Activities,Therapeutic Exercise PT Services Indicated Yes Treatment Frequency and 3x weekly for 12 visits Duration These treatments will address the objective and functional deficits as defined above. The patient will be advanced safely and appropriately in order for the patient to progress towards his/her prior level of function. Additional exercises will be introduced and as well as a comprehensive home exercise program upon discharge, if needed, ?to ensure carryover of functional gains achieved in the clinic. This treatment plan has been reviewed and agreement upon by the patient.
--- NOTE | 2024-03-22 10:00 | OPREHPOC ---
Outpatient Therapy Plan of Care This is a Multidisciplinary Plan of Care that may contain components documented by all disciplines (PT, OT, and ST.) PT Problem 1 PT Problem #1 Knowledge Deficit PT Goal 1 Goal / Goal Update 1. independent and compliant with HEP Target Visit 6 Progress Met PT Problem 2 PT Problem #2 Pain PT Goal 1 Goal / Goal Update 1. decrease pain at worst to 2/10 or less in the lower back. met 2. reduction of all radicular LE symptoms. Target Visit 12 Progress Partially Met PT Problem 3 PT Problem #3 Impaired Range of Motion PT Goal 1 Goal / Goal Update 1. active lumbar flexion to ankles without increased pain 2. 100% arom lumbar side bending bilaterally without pain 3. no catch in the lower back with arom lumbar flexion to extension transition. met Target Visit 12 Progress Partially Met PT Problem 4 PT Problem #4 Impaired Functional Mobil PT Goal 1 Goal / Goal Update 1. patient to perform sit to stand transfers without pain. met 2. oswestry to display 20% or less functional deficits. met 3. patient to look over shoulder when driving and standing without pain. Target Visit 12 Progress Partially Met
--- NOTE | 2024-03-22 10:00 | PTOPPROGNS ---
Assessment and note entered by JT File, PT Evaluation Information Assessment Status Progress Diagnosis acute bilateral low back pain with bilateral sciatica Other ICD-10 Condition Codes ( M54.42; M54.41 PT) Onset 02/18/24 Subjective Information patient reports she feels much better since her initial evaluation. she reports she still has some pain down the L LE at times, but it is much reduced. she reports she only really struggles with prolonged sitting and then standing up and lifting. she reports her does not let her lift much at home. Assessment PT Clinical Summary mrs. clark presents to skilled PT services for her 10th skilled PT visit. she displays improved functional performance of transfers and active movement with less pain. she continues to have symptoms down the L LE at times, but reports feeling much improved overall. she has made partial progress towards goals for skilled PT, and would continue to benefit from skilled PT to address her objective/functional deficits and achieve remaining goals for skilled PT. Plan of Care Interventions Electrical Stimulation,Hot Pack/Cold Pack,Manual Therapy,Neuro Re-education,Patient/Caregiver Educati,Therapeutic Activities,Therapeutic Exercise PT Services Indicated Yes Treatment Frequency and continue skilled PT per initial POC Duration These treatments will address the objective and functional deficits as defined above. The patient will be advanced safely and appropriately in order for the patient to progress towards his/her prior level of function. Additional exercises will be introduced and as well as a comprehensive home exercise program upon discharge, if needed, ?to ensure carryover of functional gains achieved in the clinic. This treatment plan has been reviewed and agreement upon by the patient.
== END 2024-03-27 09:45 | disposition home or self-care (01) ==
LOC: CHSPT 13:20
DX: M54.42 Lumbago with sciatica, left side (principal); M54.41 Lumbago with sciatica, right side
CPT/HCPCS: 97014; 97110; 97112; 97161; G0283

== ENCOUNTER 2025-04-04 09:54 | Outpatient (CLI) | payer MEDICARE, OTHER, SELFPAY ==
--- OUTSIDE RECORDS SUMMARY | 2023-02-01 10:23 | XMS_ITS | Continuity of Care Document ---
[facility] Organization [facility] Address [address] [place] [address] Phone Care Team Providers Care Machine Dyer Name Role Phone Octavia Coleman PA-C Unavailable Unavailabl e Allergies, Adverse Reactions, Alerts Substance Reaction Status Criticality prednisone rebound reaction with psoriasis Active No Information CEPHALEXIN MONOHYDRATE hives Active No In formation codeine GI problems Active No Information BUPROPION HCL hives Active No Information Medications Medication Instructions Dosage Effective Dates (start - stop) Status Comments alprazolam 0.5 mg tablet take 1 tablet by ORAL route every day as needed 0.5 MG - Active BREO ELLIPTA 200-25 MCG INH INHALE 1 PUFF BY INHALATION ROUTE EVERY DAY AT THE SAME TIME EACH DAY - Active albuterol sulfate HFA 90 mcg/actuation aerosol inhaler inhale 2 puff by inhalation route every 4 - 6 hours as needed 180 MCG - Active albuterol sulfate 2.5 mg/3 mL (0.083 %) solution for nebulization inhale 3 milliliter by Nebulization -Unspec route 4 times every day 2.5 MG - Active 1 box gabapentin 300 mg capsule take 1 capsule by oral route 3 times every day as needed 300 MG - Active Cosentyx (2 Syringes) 300 mg (150 mg/mL) subcutaneous inject 2 milliliter by subcutaneous route every 4 weeks in the abdomen, thigh, or outer area of upper arm (rotate sites) 300 MG - Active Procedures Procedure Date Offic/outpt E&m Estab Mod-hi 2 23 Immuniz Admin; 1/combo Vacc/to 23 Pneumococcal Prevnar 20 vaccine 023 Welcome To Medicare Physical ID NOW - [id number] Offic/outpt E&m Estab Mod-hi 2 23 Offic/outpt E&m Estab Mod-ak 2 22 ID NOW - [id number] Offic/outpt E&m Estab Mod-hi 2 22 Offic/outpt E&m Estab Mod-ak 2 22 Soft Tissue US Of Joint, Muscle, Nerve, Other Soft Tissue Structures EKG Preven Meds E&m Estab Pt; 40-6 22 Offic/outpt E&m Estab Mod-ak 2 21 EKG Preven Meds E&m Estab Pt; 40-6 21 Offic/outpt E&m Estab Low-mod 1 Offic/outpt E&m Estab Low-mod 0 Immuniz Admin; 1/combo Vacc/to 20 Flu Vaccine Quadrivalent Offic/outpt E&m Estab Mod-ak 2 20 Ua Dip Stik/tablt;wo Micro Non 20 Offic/outpt E&m Estab Low-mod 0 EKG Immuniz Admin; 1/combo Vacc/to 20 Tetanus/diphth Preserv Free Preven Meds E&m Estab Pt; 40-6 20 Offic/outpt E&m Estab Low-mod 0 Immuniz Admin; 1/combo Vacc/to 19 Flu Vaccine Quadrivalent Remov Impacted Cerumen (sep Pr 19 Abdominal Ultrasound Offic/outpt E&m Estab [facility] 9 Offic/outpt E&m Estab [facility] 9 EKG Interpretation - Hospital 8 EKG Interpretation - Hospital 8 Offic/outpt E&m Estab [facility] 8 EKG Immuniz Admin; 1/combo Vacc/to 18 Flucelvax, Quad Offic/outpt E&m Estab [facility] 8 Offic/outpt E&m Estab [facility] 2 18 Immuniz Admin; 1/combo Vacc/to 18 Zoster Vaccine (Shingrix) IM EKG Immuniz Admin; 1/combo Vacc/to 18 Zoster Vaccine (Shingrix) IM Preven Meds E&m Estab Pt; 40-6 18 Offic/outpt E&m Estab [facility] 7 Offic/outpt E&m Estab [facility]-ak 2 17 Ua Dip Stik/tablt;wo Micro Non 16 Offic/outpt E&m Estab [facility]-ak 2 16 Offic/outpt E&m Estab [facility] 6 Offic/outpt E&m Estab [facility] 6 Offic/outpt E&m Estab [facility] 6 Offic/outpt E&m Estab [facility]-ak 2 16 Offic/outpt E&m Estab [facility] 6 Offic/outpt E&m Estab [facility] 5 Medical Records Processing Offic/outpt E&m Estab [facility] 5 Offic/outpt E&m Estab [facility] 5 EKG Preven Meds E&m Estab Pt; 40-6 15 Offic/outpt E&m Estab [facility] 3 Offic/outpt E&m Estab Mod-ak 2 13 Offic/outpt E&m Estab Low-mod 3 Offic/outpt E&m Estab Low-mod 3 Flu Vir Vacc-split 3 Yr & > Im 12 Immuniz Admin; 1/combo Vacc/to 12 EKG Ua Dip Stik/tablt;wo Micro Non 12 Preven Meds E&m Estab Pt; 40- 12 Offic/outpt E&m Estab Low-mod 2 Ua Dip Stik/tablt;wo Micro Non 12 Offic/outpt E&m Estab Mod-hi 2 12 Offic/outpt E&m Estab Low-mod 1 Offic/outpt E&m Estab Mod-ak 2 11 EKG Spiromtry W/pjcug-uq-mbwtf Joshua 11 Preven Meds E&m Estab Pt; 40-6 11 Offic/outpt E&m Estab Mod-hi 2 11 Offic/outpt E&m Estab Mod-hi 2 10 Routine Venipunct/finger/heel 0 Bld Occult; Feces 1-3 Simult D 10 Ua Dip Stik/tablt;wo Micro Non 10 EKG Preven Meds E&m Estab Pt; 40- 10 Bone Density Offic/outpt E&m Estab Mod-hi 2 10 Offic/outpt E&m Estab Low-mod 9 Routine Venipunct/finger/heel 9 Offic/outpt E&m Estab Low-mod 9 Remov Impacted Cerumen (apr Pr 09 Offic/outpt E&m Estab Low-mod 9 Offic/outpt E&m Estab Low-mod 9 Echocardiography, With Doppler 09 Pneumococcal Polysacch Vac-chris 09 Immuniz Admin; 1/combo Vacc/to 09 Tdap - Tetanus, Diphtheria, Acellular Pe rtussis Vaccine Immuniz Admin; 2/> Sing/comb V 09 Ua Dip Stik/tablt;wo Micro Non 09 Preven Meds E&m Estab Pt; 40-6 09 EKG Spiromtry W/loirt-qf-gpjpz Joshua 09 EKG Interpretation - Hospital 8 Offic/outpt E&m Estab Mod-ak 2 08 Offic/outpt E&m Estab [facility] 8 Offic/outpt E&m Estab Low-[facility] 8 Offic/outpt E&m Estab Mod-ak 2 08 Ua Dip Stik/tablt;wo Micro Non 08 Offic/outpt E&m Estab [facility] 8 Home Care Certification EKG Interpretation - Hospital 8 Offic Cons New/estab Mod 40 Mi 08 Ua Dip Stik/tablt;wo Micro Non 08 EKG Offic/outpt E&m Estab Low-mod 8 Routine Venipunct/finger/heel 8 Ecg-routine 12 Lead; Intrpt & 7 Offic/outpt E&m Estab Low-mod 7 Offic/outpt E&m Estab Low-mod 7 Offic/outpt E&m Estab Low-mod 6 Offic/outpt E&m Estab Minor 10 06 Offic/outpt E&m Estab Mod-ak 06 Routine Venipunct/finger/heel 6 Offic/outpt E&m Estab Low-mod 6 Routine Venipunct/finger/heel 6 Offic/outpt E&m Estab Low-mod 6 Offic/outpt E m Estab LowEstablished Pat ient Level Routine Venipunct/finger/Blood Draw Offic/outpt E m Estab LowEstablished Pat ient Level Offic/outpt E m Estab ModEstablished Pat ient Level Offic/outpt E m Estab LowEstablished Pat ient Level Offic/outpt E m Estab ModEstablished Pat ient Level Offic/outpt E m Estab ModEstablished Pat ient Level Routine Venipunct/finger/Blood Draw Offic/outpt E m Estab ModEstablished Pat ient Level Routine Venipunct/finger/Blood Draw Ua Dip Stik/tablt;wo MicrUrinalysis Ecg-routine 12 Lead; W/inEKG Spiromtry W/htlxl-uw-xllwRrkmdiztrl Offic Cons New/estab Mod-Consultation Of fice Level Routine Venipunct/finger/Blood Draw Ua Dip Stik/tablt;wo MicrUrinalysis Ecg-routine 12 Lead; W/inEKG Preven Meds E m Estab Pt;Est Patient 40- 64 Prevent Offic/outpt E m Estab ModEstablished Pat ient Level Advance Directives Directive Yes / No Effective Date File Name No Information Encounters Encounter Description Practice Location Reason(s) For Visit Diagnoses Date Provider Providers Copied on Encounter [email or web address], [address], [place], [id number] , tel:[phone] [facility] No Information 3-202 3 Virginia Dudley. [address] [facility], [place], [place], [id number], [place]. tel:[phone] Referring Provider: Edel Hall, [address] [facility], [place], [address]. tel:[phone] Offic/outpt E&m Estab Mod-hi 2 [facility], [address], [place], [id number] , [phone] [email or web address] follow up visit (chief complaint) Hyperlipidem ia, unspecifiedA nxiety disorder, unspecifiedP soriasis, unspecifiedC hronic obstructive pulmonary disease, unspecifiedU nspecified osteoarthrit is, unspecified siteNicotine dependence, other tobacco product, uncomplicate dAllergic rhinitis, unspecified Tereso-3 3 Rafael Hollingsworth. [address] [facility], [place], [place], [id number], . tel:[phone] Referring Provider: Edel Hall, [address] [facility], [place], [address]. tel:[phone] [email or web address], [address] [place] [address], [id number] , [phone] [email or web address] No Information Sep- 3 Rafael Hollingsworth. [address] [place], [place], [id number], . tel:[phone] Referring Provider: Edel Hall, [address] [facility], [place], [address]. tel:[phone] [email or web address], [address] [place] [address], [id number] , tel:[phone] [email or web address] medicare preventive (chief complaint)Ch ronic Conditions (chief complaint) Encounter for general adult medical examination without abnormal findingsHype rlipidemia, unspecifiedC hronic obstructive pulmonary disease, unspecifiedP soriasis, unspecifiedU nspecified osteoarthrit is, unspecified siteAllergic rhinitis, unspecifiedN icotine dependence, other tobacco product, uncomplicate d Sep-3 3 Rafael Hollingsworth. [address] [facility], [place], [place], [id number], . tel:[phone] Referring Provider: Edel Hall, [address] [facility], [place], [address]. tel:[phone] Offic/outpt E&m Estab Mod-hi 2 [facility], [address], [place], [id number] , tel: [phone] [email or web address] Cough (chief complaint) Acute cough 3 Rafael Hollingsworth. [address] [facility], [place], [place], [id number], [place]. tel:[phone] Referring Provider: Edel Hall, [address] [facility], [place], [address]. tel:[phone] [email or web address], [address], [place], [id number] , tel: [phone] [email or web address] No Information 3 Stanley Colton. [address] [place] [address], [id number], [place]. tel: [phone] Referring Provider: Edel Hall, [address] [facility], [place], [address]. tel:[phone] Offic/outpt E&m Estab Mod-hi 2 [email or web address], [address] [place] [address], [id number] , tel: [phone] [email or web address] Cough (chief complaint) Acute sinusitis, unspecifiedC OPD w/ acute exacerbation 2 Rafael Hollingsworth. [address] [place], [place], [id number], [place]. tel:[phone] Referring Provider: Edel Hall, [address] [facility], [place], [address]. tel:[phone] Offic/outpt E&m Estab Mod-hi 2 [email or web address], [address] [place] [address], [id number] , [place] tel:[phone] [email or web address] cold symptoms (chief complaint)Ch ronic Conditions (chief complaint) Acute sinusitis, unspecifiedC OPD w/ acute exacerbation 2 Artis Colton. [address] [place] [address], [id number], [place]. tel: [phone] Referring Provider: Edel Hall, [address] [facility], [place], [address]. tel:[phone] Offic/outpt E&m Estab Mod-hi 2 [facility], [address] [place] [address], [id number] , tel:[phone] [email or web address] follow up visit (chief complaint)Ch ronic Conditions (chief complaint) Hyperlipidem ia, unspecifiedC hronic obstructive pulmonary disease, unspecifiedU nspecified osteoarthrit is, unspecified siteNicotine dependence, other tobacco product, uncomplicate dAdjustment disorder with depressed mood 2 Rafael Hollingsworth. [address] [place] [address], [id number], . tel:[phone] Referring Provider: Edel Hall, [address] [facility], [place], [address]. tel:[phone] [email or web address], [address] [place] [address], [id number] , tel:[phone] [email or web address] No Information 2 Mark Hodge. [address] [place] [address], [id number], . tel:[phone] Referring Provider: Edel Hall, [address] [facility], [place], [address]. tel:[phone] [email or web address], [address] [place] [address], [id number] , tel:[phone] [facility] No Information 2 Rafael Hollingsworth. [address] [place] [address], [id number], . tel:[phone] Referring Provider: Sindy Betts, [address] [place] [address], [address]. tel:[phone] Preven Meds E&m Estab Pt; 40-6 [facility], [address] [place] [address], [id number] , tel:[phone] [facility] preventive exam (chief complaint)Ch ronic Conditions (chief complaint) Encounter for general adult medical examination without abnormal findingsHype rlipidemia, unspecifiedC hronic obstructive pulmonary disease, unspecifiedU nspecified osteoarthrit is, unspecified sitePsoriasi s, unspecifiedN icotine dependence, other tobacco product, uncomplicate dLocalized swelling of left leg w/ lumpAdjustme nt disorder with depressed mood 2 Rafael Hollingsworth. [address] [facility], [place], [place], [id number], [place]. tel:[phone] Referring Provider: Sindy Betts, [address] [place] [address], [address]. tel:[phone] Offic/outpt E&m Estab Mod-hi 2 [facility], [address] [place] [address], [id number] , tel:[phone] [facility] cold symptoms (chief complaint) Upper respiratory infection 1 Rafael Hollingsworth. [address] [facility], [place], [place], [id number], [place]. tel:[phone] Referring Provider: Sindy Betts, [address] [place], [address]. tel:[phone] [facility], [address], [place], [id number] , tel:[phone] [facility] No Information 1 Roxane Callahan. [address], [place], [id number], [place]. tel:[phone] Referring Provider: Edel Hall, [address] [facility], [place], [address]. tel:[phone] [facility], [address], [place], [id number] , tel:[phone] [facility] No Information 1 Aravind Lou. [address] [place], [place], [id number], . tel:[phone] Referring Provider: Edel Hall, [address] [facility], [place], [address]. tel:[phone] Preven Meds E&m Estab Pt; 40-6 [facility], [address] [place] [address], [id number] , tel:[phone] [facility] preventive exam (chief complaint)Ch ronic Conditions (chief complaint) Hyperlipidem ia, unspecifiedP soriasis, unspecifiedC hronic obstructive pulmonary disease, unspecifiedU nspecified osteoarthrit is, unspecified siteNicotine dependence, other tobacco product, uncomplicate dEncntr for general adult medical exam w/o abnormal findingsVagi nitisRas 1 Rafael Hollingsworth. [address] [facility], [place], [place], [id number], . tel:[phone] Referring Provider: Sindy Betts, [address] [place], [address]. tel:[phone] Offic/outpt E&m Estab Low-mod [email or web address], [facility], [address], [place], [id number] , tel:[phone] [email or web address] Earache (chief complaint) Otitis mediaChronic serous otitis media, bilateral 1 Shen Jones. [address] [place], [place], [facility], . tel:[phone] Referring Provider: Sindy Betts, [address] [place], [address]. tel:[phone] Offic/outpt E&m Estab Low-mod [email or web address], [address], [place], [id number] , tel:[phone] [email or web address] Tinnitus L Ear (chief complaint) Pulsatile tinnitus, left ear Nov-1 0-202 0 Rafael Edel. [address] [place], [place], [id number], . tel:[phone] Referring Provider: Sindy Betts, [address] [place], [address]. tel:[phone] [facility], [address], [place], [id number] , tel:[phone] [facility] Encounter for immunization 0 Janiga Jones. [address] [place], [facility], . tel:[phone] Referring Provider: Sindy Betts, [address] [place], [address]. tel:[phone] Offic/outpt E&m Estab Mod-hi 2 [facility], [address] [place] [address], [id number] , tel:[phone] [facility] ear pain (chief complaint) CoughOtalgia , right ear Tereso- 0 Janiga Jones. [address] [place], [facility], . tel:[phone] Referring Provider: Sindy Betts, [address] [place], [address]. tel:[phone] Offic/outpt E&m Estab Low-mod [facility], [address], [place], [id number] , tel:[phone] [facility] UTI (chief complaint) Urinary frequency November- 0 Janiga Jones. [address] [place], [facility], . tel:[phone] Referring Provider: Sindy Betts, [address] [place], [address]. tel:[phone] Preven Meds E&m Estab Pt; 40-6 [facility], [address], [place], [id number] , [place] tel:[phone] [email or web address] preventive exam (chief complaint) Encntr for general adult medical exam w/o abnormal findingsChro lisa obstructive pulmonary disease, unspecifiedN icotine dependence, other tobacco product, uncomplicate dHyperlipide joan, unspecifiedA llergic rhinitis, unspecifiedP soriasis, unspecifiedU nspecified osteoarthrit is, unspecified site 0 Rafael Edel. [address] [facility], [place], [place], [id number], [place]. tel:[phone] Referring Provider: Sindy Betts, [address] [place], [address]. tel:[phone] Offic/outpt E&m Estab Low-mod [email or web address], [address], [place], [id number] , [phone] [facility] Lump (chief complaint) Cutaneous abscess of left axilla 0 Rafael Hollingsworth. [address] [facility], [place], [id number], [place]. tel:[phone] Referring Provider: Sindy Betts, [address] [place], [address]. tel:[phone] [email or web address], [address], [place], [id number] , tel:[phone] [facility] f/u paperwork work (chief complaint) Encounter for immunization 9 Aravind Lou. [address], [place], [id number], [place]. tel:[phone] Referring Provider: Sindy Betts, [address] [place], [address]. tel:[phone] lting Provider: Karen Gotti, [address] [place], [address]. tel:[phone] [email or web address], [address], [place], [id number] , [place] tel:[phone] [email or web address] Earache (chief complaint) Impacted cerumen, bilateral 9 Arroyo Tami. [address], [place], [id number], [place]. tel:[phone] Referring Provider: Sindy Betts, [address] [place], [address]. tel:[phone] [email or web address], [address], [place], [id number] , [place] tel:[phone] [email or web address] No Information 9 Roxane Callahan. [address] [place], [place], [id number], [place]. tel:[phone] [email or web address], [address], [place], [id number] , [place] tel:[phone] [email or web address] Upper abdominal pain 9 Mark Hodge. [address], [place], [id number], [place]. tel:[phone] Referring Provider: Sindy Betts, [address] [place], [address]. tel:[phone] Offic/outpt E&m Estab Low-mod [email or web address], [address], [place], [id number] , [place] tel:[phone] [email or web address] L shoulder pain (chief complaint) Pain in left shoulderUppe r abdominal pain 9 No Information Referring Provider: Sindy Betts, [address] [place], [address]. tel:[phone] Offic/outpt E&m Estab Low-mod [email or web address], [facility], [address], [place], [id number] , [place] tel:[phone] [email or web address] Lump (chief complaint) Localized enlarged lymph node 9 Rafael Hollingsworth. [address] [facility] [place], [id number], [place]. tel:[phone] Referring Provider: Sindy Betts, [address] [place], [address]. tel:[phone] [facility], [address], [place], [id number] , [place] tel:[phone] [facility] No Information 8 Edgar Georges. [address], [place], [id number], [place]. tel:[phone] Referring Provider: Randy Kessler, [address] [facility] [place], [address]. [facility], [address], [id number] , [place] tel:[phone] [facility] Cough (chief complaint) Cough 8 Roxane Callahan. [address], [id number], [place]. tel:[phone] Referring Provider: Sindy Betts, [address] [place], [address]. tel:[phone] [facility], [address], [id number] , [place] tel:[phone] [facility] Chronic Conditions (chief complaint) Encounter for other preprocedura l examinationC hronic obstructive pulmonary disease, unspecifiedN icotine dependence, other tobacco product, uncomplicate dEssential (primary) hypertension 8 Roxane Callahan. [address] [place], [place], [id number], [place]. tel:[phone] Referring Provider: David Chino, [address] [facility], [place], [address]. tel:[phone] Offic/outpt E&m Estab Mod-ak 2 [facility], [address], [place], [id number] , tel:[phone] [facility] cough (chief complaint) Acute upper respiratory infection, unspecifiedU nspecified asthma with (acute) exacerbation 8 Cruz Garrett. [address], [place], [id number], . tel:[phone] Referring Provider: Sindy Betts, [address] [place], [address]. tel:[phone] [facility], [address] [place] [address], [id number] , tel:[phone] [facility] No Information 8 No Information Referring Provider: Sindy Betts, [address] [place], [address]. tel:[phone] [facility], [address] [place] [address], [id number] , tel:[phone] [facility] Unspecified lump in unspecified breast 8 Roxane Callahan. [address], [id number], . tel:[phone] Referring Provider: Sindy Betts, [address] [place], [address]. tel:[phone] Preven Meds E&m Estab Pt; 40-6 [email or web address], [address] [place] [address], [id number] , tel:[phone] [facility] CPX (chief complaint)Ch ronic Conditions (chief complaint) Encntr for general adult medical exam w/o abnormal findingsEsse ntial (primary) hypertension Hyperlipidem ia, unspecifiedA sthmaChronic obstructive pulmonary disease, unspecifiedN icotine dependence, other tobacco product, uncomplicate dAllergic rhinitis, unspecified 8 No Information Referring Provider: Sindy Betts, [address] [place], [address]. tel:[phone] Offic/outpt E&m Estab Low-mod [email or web address], [facility], [address], [place], [id number] , [place] tel:[phone] [email or web address] Impacted cerumen, left ear 7 Roxane Callahan. [address], [id number], [place]. tel:[phone] Referring Provider: Sindy Betts, [address] [place], [address]. tel:[phone] lting Provider: Edel Hall, [address] [place], [address]. tel:[phone] Offic/outpt E&m Estab Mod-hi 2 [email or web address], [facility], [address] [place] [address], [id number] , [place] tel:[phone] [email or web address] Impacted cerumen, bilateral 7 No Information Referring Provider: Sindy Betts, [address] [place], [address]. tel:[phone] Offic/outpt E&m Estab Mod-hi 2 [email or web address], [facility], [address], [place], [id number] , [place] tel:[phone] [email or web address] Abdominal pain (chief complaint) Abdominal pain 6 Lawler Preetkamal. [address], [place], [id number], [place]. tel:[phone] Referring Provider: Sindy Betts, [address] [place], [address]. tel:[phone] Offic/outpt E&m Estab Low-mod [email or web address], [facility] [facility], [address], [place], [id number] , [place] tel:[phone] [email or web address] Follow Up of Cough (chief complaint) CoughTobacco use 6 No Information Referring Provider: Sindy Betts, [address] [place], [address]. tel:[phone] Offic/outpt E&m Estab Low-mod [email or web address], [facility], [address], [place], [id number] , tel:[phone] [email or web address] cough/ asthma (chief complaint) Asthma Feb-0 6 Roxane Callahan. [address], [place], [id number], [place]. tel:[phone] Referring Provider: Sindy Betts, [address] [place], [address]. tel:[phone] Offic[facility]pt [facility], [facility], [address], [place], [id number] , tel:[phone] [facility] cold symptoms/ x month (chief complaint) Acute bronchitis 6 Roxane Callahan. [address], [place], [id number], [place]. tel:[phone] Referring Provider: Sindy Betts, [address] [place], [address]. tel:[phone] Offic/outpt E&m Estab Mod-hi 2 [email or web address], [facility], [address], [place], [id number] , [place] tel:[phone] [facility] med side effect (chief complaint) Anxiety disorder, unspecifiedM ajor depressive disorder, single episode, unspecifiedD iarrheaHeari ng loss 6 No Information Referring Provider: Sindy Betts, [address] [place], [address]. tel:[phone] Offic/outpt E&m Estab Low-mod [email or web address], [facility], [address], [id number] , [place] tel:[phone] [facility] earache (chief complaint) Acute sinusitis, unspecified 6 No Information Referring Provider: Sindy Betts, [address] [place], [address]. tel:[phone] Offic/outpt E&m Estab Low-[facility], [address] [place] [address], [id number] , tel:[phone] [facility] musculoskele en pain (chief complaint) Varicose veins of unspecified lower extremities with painEssentia l (primary) hypertension 5 Roxane Callahan. [address], [place], [id number], [place]. tel:[phone] Referring Provider: Sindy Betts, [address] [place], [address]. tel:[phone] [facility], [address] [place] [address], [id number] , tel:[phone] [facility] No Information 5 Roxane Callahan. [address], [place], [id number], [place]. tel:[phone] Referring Provider: Sindy Betts, [address] [place], [address]. tel:[phone] [facility], [address] [place] [address], [id number] , [place] tel:[phone] [facility] Discuss Azucena D (chief complaint)Gr ief reaction (chief complaint) Hypovitamino sis DAnxiety State Nos 5 Roxane Callahan. [address], [place], [id number], [place]. tel:[phone] Referring Provider: Sindy Betts, [address] [place], [address]. tel:[phone] Offic/outpt E&m Estab Lowmod [facility], [address], [id number] , [place] tel:[phone] [email or web address] pain left side of face (chief complaint) TMJ - Temporomandi bular joint disorder 5 No Information Referring Provider: Sindy Betts, [address] [place], [address]. tel:[phone] Preven Meds E&m Estab Pt; 40-6 [email or web address], [address] [place] [address], [id number] , tel:[phone] [email or web address] chronic conditions (chief complaint) Well PersonOther and unspecified hyperlipidem iaUnspecifie d essential hypertension Depressive disorder, not elsewhere classifiedAs thma, unspecified 5 Roxane Callahan. [address] [place] [address], [id number], . tel:[phone] Referring Provider: Sindy Betts, [address] [place], [address]. tel:[phone] Offic/outpt E&m Estab Low-mod [email or web address], [address], [id number] , [place] tel:[phone] [email or web address] URI (chief complaint) Sinusitis, Acute Sep-0 3 No Information Referring Provider: Sindy Betts, [address] [place], [address]. tel:[phone] Offic/outpt E&m Estab Mod-hi 2 [email or web address], [address] [place] [address], [id number] , [place] tel:[phone] [email or web address] cold symptoms (chief complaint) URIAsthmaAll ergic Rhinitis Nos 3 No Information Referring Provider: Sindy Betts, [address] [place], [address]. tel:[phone] Offic/outpt E&m Estab Low-mod [email or web address], [address], [id number] , tel:[phone] [email or web address] cough (chief complaint) Bronchitis, AcuteAsthma 3 Roxane Callahan. [address], [place], [id number], . tel:[phone] Referring Provider: Sindy Betts, [address] [place], [address]. tel:[phone] Offic/outpt E&m Estab Low-mod [facility], [address], [id number] , [place] tel:[phone] [facility] URI (chief complaint) Sinusitis, Acute 3 No Information Referring Provider: Sindy Betts, [address] [place] [address], [address]. tel:[phone] Preven Meds E&m Estab Pt; 40-6 [facility], [address] [place] [address], [id number] , tel:[phone] [facility] chronic conditions (chief complaint) Influenza VaccineHyper tension, BenignTobacc o AbuseHyperch olesterolemi aAsthmaDepre ssionRoutine Medical ExamMammogra m, ScreeningRou miesha Medical Exam 2 Roxane Callahan. [address], [id number], [place]. tel:[phone] Referring Provider: Sindy Betts, [address] [place], [address]. tel:[phone] Offic/outpt E&m Estab Lowmod [facility], [address], [id number] , [place] tel:[phone] [facility] chronic conditions (chief complaint) DepressionCa lculus Of Kidney 2 Roxane Callahan. [address], [id number], . tel:[phone] Referring Provider: Sindy Betts, [address] [place], [address]. tel:[phone] Offic/outpt E&m Estab Mod-hi 2 [facility], [address] [place] [address], [id number] , [place] tel:[phone] [facility] back pain (chief complaint) DysuriaCalcu bryant Of Kidney Obey-0 2 No Information Referring Provider: Sindy Betts, [address] [place], [address]. tel:[phone] Offic/outpt E&m Estab Low-mod [facility], [address] [place] [address], [id number] , [place] tel:[phone] [facility] chronic conditions (chief complaint) Hypertension , BenignDepres rolly Jul-2 1 Roxane Callahan. [address], [id number], [place]. tel:[phone] Referring Provider: Sindy Betts, [address] [place], [address]. tel:[phone] Offic/outpt E&m Estab Mod-hi 2 [facility], [address] [place] [address], [id number] , [place] tel:[phone] [facility] discuss psych issues (chief complaint)ch ronic conditions (chief complaint) Hypertension , BenignHyperc holesterolem iaTobacco AbuseDepress ionFatigue / Malaise Apr-0 1 Roxane Callahan. [address], [id number], [place]. tel:[phone] Referring Provider: Sindy Betts, [address] [place], [address]. tel:[phone] Preven Meds E&m Estab Pt; 40-6 [facility], [address], [id number] , tel:[phone] [email or web address] chronic conditions (chief complaint) Routine Medical ExamHyperten rolly, BenignHyperc holesterolem iaAsthmaToba senior accounting manager AbuseDepress ionVitamin D Deficiency NosAllergic Rhinitis NosRoutine Medical Exam 1 Roxane Callahan. [address], [id number], . tel:[phone] Referring Provider: Sindy Betts, [address] [place], [address]. tel:[phone] Offic/outpt E&m Estab Mod-hi 2 [email or web address], [address] [place] [address], [id number] , tel:[phone] [email or web address] cold symptoms (chief complaint) Upper Respiratory Infection, AcuteHyperte nsion, Benign 1 Mark Hodge. [address], [place], [id number], . tel:[phone] Referring Provider: Sindy Betts, [address] [place], [address]. tel:[phone] Offic/outpt E&m Estab Mod-hi 2 [email or web address], [address] [place] [address], [id number] , tel:[phone] [email or web address] hemorrhoids (chief complaint) Thrombos Hemorrhoids Nos Oct-0 0 No Information Referring Provider: Sindy Betts, [address] [place], [address]. tel:[phone] Preven Meds E&m Estab Pt; 40-6 [email or web address], [address] [place] [address], [id number] , tel:[phone] [email or web address] physical exam (chief complaint) Hypertension EssentialTob acco Use DisorderAsth ma, UnspecVitami n D Deficiency NosBenign Colon LesionDepres sive Disorder NecHyperchol esterolemiaH ypertension Essential 0 Taterobert Sindy. [address], [id number], . tel:[phone] Referring Provider: Sindy Betts, [address] [place], [address]. tel:[phone] [facility], [address] [place] [address], [id number] , tel:[phone] [facility] No Information 0 Roxane Callahan. [address], [place], [id number], . tel:[phone] Referring Provider: Sindy Betts, [address] [place], [address]. tel:[phone] Offic/outpt E&m Estab Mod-hi 2 [facility], [address] [place] [address], [id number] , tel:[phone] [facility] hemorrhoids (chief complaint) Tobacco Use DisorderVita min D Deficiency NosVitamin D Deficiency NosHemorrhoi ds Nos 0 Roxane Callahan. [address], [id number], . tel:[phone] Referring Provider: Sindy Betts, [address] [place], [address]. tel:[phone] Offic/outpt E&m Estab Low-mod [facility], [address], [id number] , tel:[phone] [facility] Followup of multiple problems (chief complaint) Hypertension , EssentialVit mercado D Deficiency NosTobacco Use DisorderHype rcholesterol emiaDepressi ve Disorder Nec Jun- 5200 9 Roxane Callahan. [address], [id number], . tel:[phone] Referring Provider: Sindy Betts, [address] [place], [address]. tel:[phone] [facility], [address], [id number] , tel:[phone] [facility] Benign Colon LesionHemang ioma NosVitamin D Deficiency NosHyperchol esterolemiaT obacco Use DisorderHype rtension, EssentialAll ergic Rhinitis NosAsthma W/o Status Asthm 8-200 9 Roxane Callahan. [address], [id number], [place]. tel:[phone] Referring Provider: Sindy Betts, [address] [place], [address]. tel:[phone] [facility]pt [facility], [address], [id number] , tel:[phone] [facility] ear discomfort (chief complaint) Hearing Loss Nos 6200 9 No Information Referring Provider: Sindy Betts, [address] [place], [address]. tel:[phone] Offic/outpt E&m Estab Lowmod [facility], [address], [id number] , [place] tel:[phone] [facility] inflamed nostril (chief complaint) No Information Dec-3 0-200 9 Marte Nakia. [address] [place], [address], . tel:[phone] Referring Provider: Sindy Betts, [address] [place], [address]. tel:[phone] Offic/outpt E&m Estab Lowmod [facility], [facility], [address], [id number] , [place] tel:[phone] [facility] BP check (chief complaint) Hypertension , Essential Tereso-0 4-200 9 Roxane Callahan. [address], [id number], . tel:[phone] Referring Provider: Sindy Betts, [address] [place], [address]. tel:[phone] [email or web address], [address] [place] [address], [id number] , tel:[phone] [email or web address] No Information 3200 9 No Information Referring Provider: Sindy Roxane, [address] [place], [address]. tel:[phone] [email or web address], [address] [place] [address], [id number] , tel:[phone] [email or web address] Elev Bl Pres W/o Hypertn 0 2-200 9 No Information [email or web address], [address] [place] [address], [id number] , tel:[phone] [facility] Malaise & Fatigue 8200 9 Pet Pacey. [address], [place], [place], [facility], . tel:[phone] Referring Provider: Sindy Betts, [address] [place], [address]. tel:[phone] Preven Meds E&m Estab Pt; 40-6 [email or web address], [address] [place] [address], [id number] , tel:[phone] [email or web address] physical exam (chief complaint) Vitamin D Deficiency NosHyperchol esterolemiaB enign Colon LesionTobacc o Use DisorderAsth ma W/o Status AsthmAsthma W/o Status AsthmHemangi alvin Nos 0 7-200 9 Taterobert Sindy. [address], [id number], . tel:[phone] Referring Provider: Sindy Betts, [address] [place], [address]. tel:[phone] [email or web address], [address], [id number] , [place] tel:[phone] [facility] Benign Colon Lesion Jul- 8200 8 Roxane Callahan. [address], [id number], [place]. tel:[phone] Referring Provider: Sindy Betts, [address] [place], [address]. tel:[phone] [email or web address], [address], [id number] , [place] tel:[phone] [email or web address] No Information Jul- 0-200 8 No Information Referring Provider: Todd Rodrigues, [address] [place], [address]. tel:[phone] Offic/outpt E&m Estab Mod-hi 2 [email or web address], [address], [id number] , [place] tel:[phone] [email or web address] abdominal discomfort (chief complaint) Abd Pain R-upper Quad Jul-0 8200 8 Roxane Dudleyeen. [address], [id number], [place]. tel:[phone] Referring Provider: Sindy Betts, [address] [place], [address]. tel:[phone] Offic/outpt E&m Estab Low-mod [email or web address], [facility], [address], [id number] , [place] tel:[phone] [email or web address] diarrhea (chief complaint) No Information May-0 7200 8 Roxane Callahan. [address], [place], [id number], [place]. tel:[phone] Referring Provider: Sindy Betts, [address] [place], [address]. tel:[phone] Offic/outpt E&m Estab Low-mod [email or web address], [facility], [address], [id number] , [place] tel:[phone] [facility] Followup of multiple problems (chief complaint) Asthma W/o Status AsthmAllergi c Rhinitis NosTobacco Use DisorderHype rcholesterol emia Sep-2 9200 8 Roxane Callahan. [address], [id number], [place]. tel:[phone] Referring Provider: Sindy Betts, [address] [place], [address]. tel:[phone] Offic/outpt E&m Estab Mod-hi 2 [facility] [employer] [facility], [address], [id number] , [place] tel:[phone] [facility] pre-operativ e evaluation (chief complaint) Asthma W/o Status AsthmPreop Examination Nos Mar- 8-200 8 Mark Hodge. [address], [place], [id number], [place]. tel:[phone] Referring Provider: Efren Odom, [address] [place], [address]. tel:[phone] Offic/outpt E&m Estab Low-mod [email or web address], [facility], [address], [id number] , [place] tel:[phone] [facility] diverticulli tis (chief complaint) Abd Pain L-lower Quad Tereso-1 0-200 8 Roxane Callahan. [address], [id number], [place]. tel:[phone] Referring Provider: Sindy Betts, [address] [place], [address]. tel:[phone] [facility], [address], [id number] , [place] tel:[phone] [facility] No Information 0 4-200 8 Roxane Callahan. [address], [id number], [place]. tel:[phone] Referring Provider: Sindy Betts, [address] [place], [address]. tel:[phone] [email or web address] [facility], [address], [place], [id number] , [place] tel:[phone] [email or web address] No Information 4200 8 No Information Referring Provider: Efren Teixeira, [address] [facility], [place], [address]. tel:[phone] Offic Cons New/estab Mod 40 Mi [facility], [address], [id number] , [place] tel:[phone] [email or web address] pre-operativ e evaluation (chief complaint) Hypercholest erolemiaPreo p Examination Nos 8200 8 Mark Hodge. [address], [id number], [place]. tel:[phone] Referring Provider: Alec Rodrigues, [address] [facility], [place], [address]. tel:[phone] Offic/outpt E&m Estab Low-mod [facility], [address], [id number] , [place] tel:[phone] [email or web address] Followup of multiple problems (chief complaint)an xiety (chief complaint) Tobacco Use DisorderDive rticulitis Of ColonAnxiety State NosHyperchol esterolemia 0 3-200 8 Taterobert Sindy. [address], [id number], [place]. tel:[phone] Referring Provider: Sindy Betts, [address] [place], [address]. tel:[phone] [email or web address] [facility], [address], [id number] , [place] tel:[phone] [facility] No Information Nov- 9-200 7 Edgar Georges. [address], [id number], [place]. tel:[phone] Referring Provider: David Chino, [address] [facility], [place], [address]. tel:[phone] Offic/outpt E&m Estab Low-mod [facility], [address], [id number] , [place] tel:[phone] [facility] Low Back Pain Oct-0 4-200 7 No Information Referring Provider: Sindy Betts, [address] [place], [address]. tel:[phone] Offic/outpt E&m Estab Low-mod [facility], [address], [id number] , [place] tel:[phone] [facility] Abd Pain L-lower Quad Apr-0 6-200 7 Roxane Callahan. [address], [id number], [place]. tel:[phone] Referring Provider: Sindy Betts, [address] [place], [address]. tel:[phone] Offic/outpt E&m Estab Low-[facility], [address], [id number] , [place] tel:[phone] [facility] Otitis Media Nos Nov-3 0-200 6 No Information Referring Provider: Sindy Betts, [address] [place], [address]. tel:[phone] Offic/outpt E&m Estab Minor 10 [facility], [address], [id number] , [place] tel:[phone] [facility] No Information Oct-1 9-200 6 Roxane Callahan. [address], [place], [id number], [place]. tel:[phone] Referring Provider: Sindy Betts, [address] [place], [address]. tel:[phone] Offic/outpt E&m Estab Mod-hi 2 [email or web address] [facility], [facility], [address] [place] [address], [id number] , tel:[phone] [email or web address] [facility] Allergic Rhinitis NosEustachia n Tube Dis Nos 6200 6 Roxane Sindy. [address], [id number], [place]. tel:[phone] Referring Provider: Sindy Betts, [address] [place], [address]. tel:[phone] Offic/outpt E&m Estab Low-mod [email or web address] [facility], [address] [place] [address], [id number] , tel:[phone] [facility] [email or web address] [facility] Chest Pain Nos 6 Roxane Callahan. [address] [place] [address], [id number], [place]. tel:[phone] Offic/outpt E&m Estab Low-mod [email or web address], [address] [place] [address], [id number] , [place] tel:[phone] [facility] [email or web address] [facility] Diverticulit is Of ColonOtitis Media Nos 6 No Information Offic/outpt E m Estab LowEstablished Patient Level [email or web address] [facility], [address] [place] [address], [id number] , [place] tel:[phone] [email or web address] [facility] No Information 6 No Information Offic/outpt E m Estab LowEstablished Patient Level [email or web address], [address] [place] [address], [id number] , [place] tel:[phone] [facility] [email or web address] [facility] No Information 6 No Information Offic/outpt E m Estab ModEstablished Patient Level [email or web address] [facility], [address] [place] [address], [id number] , tel:[phone] [facility] [facility] No Information 6 No Information Offic/outpt E m Estab LowEstablished Patient Level [employer] [email or web address] [facility], [address] [place] [address], [id number] , tel:[phone] [facility] No Information 6 No Information Offic/outpt E m Estab ModEstablished Patient Level [email or web address] [facility], [address] [place] [address], [id number] , tel:[phone] [employer] [facility] No Information 5 No Information Offic/outpt E m Estab ModEstablished Patient Level [email or web address] [facility], [address] [place] [address], [id number] , tel: [phone] [employer] [facility] No Information 5 No Information Offic/outpt E m Estab ModEstablished Patient Level [email or web address], [address] [place] [address], [id number] , tel:[phone] [employer] [facility] No Information 200 2 No Information Offic Cons New/estab Mod-Consultati on Office Level [email or web address] [facility], [address] [place] [address], [id number] , tel:[phone] [employer] [facility] No Information 2 No Information Preven Meds E m Estab Pt;Est Patient 40-64 Prevent [facility] [email or web address] [facility], [address] [place] [address], [id number] , [place] tel:+ [phone] [employer] [facility] No Information 2 No Information Offic/outpt E m Estab ModEstablished Patient Level [email or web address], [address] [place] [address], [id number] , tel:[phone] [employer] [facility] No Information 200 2 No Information Family History Family Member Type Diagnosis Age At Onset Problem (finding) No family history of Ca ncer, ovarian Father Problem (finding) glaucoma Mother Problem (finding) Peripheral Vascular Dis ease Problem (finding) No family history of Di abetes mellitus Sister Problem (finding) Mitral Valve I ssues - surgical complications Son Problem malignant neoplasm of testis Sister Problem (finding) hypercholester olemia in first degree relative Father Problem (finding) cholecystits - ruptured, complications arose Father Problem (finding) coronary arter iosclerosis (Cause Of ) Mother Problem (finding) Complications related to surgery (Cause Of ) Problem (finding) No family history of Ca ncer, cervical Sister Problem (finding) premature coronary hear t disease 34 Problem (finding) No family history of Ca ncer, uterine Maternal aunt Problem (finding) breast cancer 58 Sister Problem (finding) Problem (finding) No family history of Ca ncer, colon Sister Problem (finding) hypertension Mother Problem (finding) DVT's (Cause Of ) Mother Problem (finding) jaw cancer 60 Immunizations Vaccine Date Status Comments Pneumococcal conjugate PCV20 administered Source: New Immunization Record Influenza, injectable, quadrivalent, MDCK, preservative and antibiotic free, 0.5 mL dosage, Flucelvax Quad administered Note: at pharmacy - fadi ; Source: Public Agency SARS-COV-2 (COVID-19) vaccin e, mRNA, spike protein, LNP, preservative free, 30 mcg/0.3mL dose administered Note: verified by cuca chau ; Source: Public Agency Influenza, injectable, quadrivalent, MDCK, preservative and antibiotic free, 0.5 mL dosage, Flucelvax Quad administered Note: document ; Frieda rce: Public Agency SARS-COV-2 (COVID-19) vaccin e, mRNA, spike protein, LNP, preservative free, 30 mcg/0.3mL dose (ROBAUTO) administered Source: Source U nspecified SARS-COV-2 (COVID-19) vaccin e, mRNA, spike protein, LNP, preservative free, 30 mcg/0.3mL dose (ROBAUTO) administered Source: Source U nspecified Influenza, injectable, quadrivalent, MDCK, preservative and antibiotic free, 0.5 mL dosage, Flucelvax Quad administered Source: New Immuniza tion Record Td (adult) preservative free administered Source: New Immunization Record Influenza, injectable, MDCK, preservative free, 0.5 mL dosage, Flucelvax Quad administered Source: New Immuniza tion Record Influenza, injectable, MDCK, Flucelvax Quad administered Source: New Im munization Record Shingrix administered Source: New Imm unization Record Shingrix administered Source: New Imm unization Record Pneumococcal conjugate PCV 13 administere d Source: Other Provider Influenza, injectable, quadrivalent, preservative free, split virus 3 years or older, Fluarix Quad administered Source: Ot her Provider Influenza virus vaccine, injectable, quadrivalent, split virus, preservative free, 3 years or older Fluarix Quad administered Source: Public Agenc y Flu (split) (3 yrs or older) administered Source: New Immunization Record Tdap administered Source: New Imm unization Record pneumo (3 yrs or older) (PPV) administere d Source: New Immunization Record Payers Payer name Insurance type Covered constitution party ID Authoriza tion(s) Medicare Part B [place] Claims MB [id number] Aetna PPO CI [id number] Medicare Part B [place] Claims MB [id number] Aetna PPO CI [id number] Cigna PPO CI [id number] Cigna PPO CI [id number] Cigna PPO CI [id number] Cigna PPO CI [id number] Cigna PPO CI [id number] Cigna PPO CI [id number] Social History Type Description Quantity Date Captured Comments Sex Female Smoking Status No Information Chief Complaint And Reason For Visit No Information Reason For Referral Reason For Referral No Information Plan Of Treatment Date Type Action Status Goal Breast US, Unila teral, Complete. Due on due Goal Depression scree enrico. Due on due Goal Eye Exam. Due on due Goal Pap/HPV testing. Due on due Goal DEXA Scan. Due on due Goal Hep C Ab w/Rflx to Hep C RNA, Quant, RT-PCR. Due on due Goal Cologuard. Due on due Goal Breast US, Bilat eral, Complete. Due on due Goal EGD. Due on due Goal Dental Exam. Due on due Goal Mammogram. Due on due Goal Colonoscopy. Due on due Goal Zoster vaccine (2nd) due Goal Zoster vaccine (1st) due Goal Cognitive assess ment. Due on due Goal HPV. Due on due Goal Hepatitis C scre ening. Due on due Goal Unhealthy drug u se screening. Due on due Goal Mammogram. Due on due Goal DEXA Scan. Due on due Goal Diabetes screening. Due on due Goal Dental Exam. Due on due Goal Cologuard. Due on due Goal Eye Exam. Due on due Goal Zoster vaccine (1st) due Goal Lipid Panel. Due on due Goal EGD. Due on due Goal Pap/HPV testing. Due on due Goal Colonoscopy. Due on 024 due Goal Cognitive assess ment. Due on due Goal Hep C Ab w/Rflx to Hep C RNA, Quant, RT-PCR. Due on due Goal Zoster vaccine (2nd) due Goal Depression scree enrico. Due on due Goal Hep C Ab w/Rflx to Hep C RNA, Quant, RT-PCR. Due on due Goal EGD. Due on due Goal Pap/HPV testing. Due on due Goal Dental Exam. Due on 023 due Goal Colonoscopy. Due on 022 due Goal Cologuard. Due on 3 due Goal Zoster vaccine (2nd) due Goal Depression scree enrico. Due on due Goal Zoster vaccine (1st) due Goal Cognitive assess ment. Due on due Goal Diabetes screening. Due on due Goal DEXA Scan. Due on 3 due Goal Breast US, Unila teral, Complete. Due on due Goal Eye Exam. Due on due Goal Breast US, Bilat eral, Complete. Due on due Goal Lipid Panel. Due on due Goal Lipid Panel. Due on due Goal Zoster vaccine (2nd) due Goal Colonoscopy. Due on due Goal Breast US, Unila teral, Complete. Due on due Goal Pap/HPV testing. Due on due Goal Cognitive assess ment. Due on due Goal Breast US, Bilat eral, Complete. Due on due Goal DEXA Scan. Due on 3 due Goal Dental Exam. Due on due Goal Diabetes screening. Due on due Goal Zoster vaccine (1st) due Goal Eye Exam. Due on due Goal Cologuard. Due on due Goal Depression scree enrico. Due on due Goal Eye Exam. Due on due Goal Lipid Panel. Due on due Goal Dental Exam. Due on 023 due Goal Colonoscopy. Due on due Goal Depression scree enrico. Due on due Goal Diabetes screening. Due on due Goal Pap/HPV testing. Due on due Goal Cologuard. Due on due Goal Zoster vaccine (1st) due Goal Breast US, Bilat eral, Complete. Due on due Goal Cognitive assess ment. Due on due Goal DEXA Scan. Due on 3 due Goal Zoster vaccine (2nd) due Goal Breast US, Unila teral, Complete. Due on due Goal Breast US, Unila teral, Complete. Due on due Goal Eye Exam. Due on due Goal Colonoscopy. Due on due Goal DEXA Scan. Due on 3 due Goal Lipid Panel. Due on due Goal Zoster vaccine (1st) due Goal Cologuard. Due on due Goal Zoster vaccine (2nd) due Goal Dental Exam. Due on due Goal Pap/HPV testing. Due on due Goal Depression scree enrico. Due on due Goal Diabetes screening. Due on due Goal Depression scree enrico. Due on due Goal Dental Exam. Due on due Goal Zoster vaccine (1st) due Goal Breast US, Unila teral, Complete. Due on due Goal Mammogram. Due on 2 due Goal DEXA Scan. Due on 3 due Goal Lipid Panel. Due on due Goal Cologuard. Due on 3 due Goal Eye Exam. Due on due Goal Colonoscopy. Due on due Goal Pap/HPV testing. Due on due Goal Diabetes screening. Due on due Goal Zoster vaccine (2nd) due Goal Lipid Panel. Due on 027 due Goal Colonoscopy. Due on 022 due Goal Eye Exam. Due on due Goal DEXA Scan. Due on 3 due Goal Zoster vaccine (1st) due Goal Depression scree enrico. Due on due Goal Zoster vaccine (2nd) due Goal Mammogram. Due on 2 due Goal Cologuard. Due on 3 due Goal Breast US, Unila teral, Complete. Due on due Goal Diabetes screening. Due on due Goal Dental Exam. Due on 023 due Goal Zoster vaccine (1st) due Goal DEXA Scan. Due on 3 due Goal Zoster vaccine (2nd) due Goal Pap/HPV testing. Due on due Goal Lipid Panel. Due on 026 due Goal Mammogram. Due on 2 due Goal Cologuard. Due on 3 due Goal Depression scree enrico. Due on due Goal Diabetes screening. Due on due Goal Colonoscopy. Due on due Goal Eye Exam. Due on due Goal Breast US, Unila teral, Complete. Due on due Goal Dental Exam. Due on due Goal DEXA Scan. Due on 3 due Goal Lipid Panel. Due on due Goal Breast US, Unila teral, Complete. Due on due Goal Colonoscopy. Due on due Goal Dental Exam. Due on due Goal Zoster vaccine (2nd) due Goal Eye Exam. Due on due Goal Pap/HPV testing. Due on due Goal Zoster vaccine (1st) due Goal Mammogram. Due on 2 due Goal Diabetes screening. Due on due Goal Cologuard. Due on 3 due Goal Depression scree enrico. Due on due Goal Pap/HPV testing. Due on due Goal Lipid Panel. Due on due Goal Zoster vaccine (2nd) due Goal Breast US, Unila teral, Complete. Due on due Goal Diabetes screening. Due on due Goal Depression scree enrico. Due on due Goal Cologuard. Due on 3 due Goal Colonoscopy. Due on due Goal Zoster vaccine (1st) due Goal Colonoscopy. Due on due Goal Zoster vaccine (1st) due Goal Lipid Panel. Due on due Goal Zoster vaccine (2nd) due Goal Breast US, Unila teral, Complete. Due on due Goal Diabetes screening. Due on due Goal DEXA Scan. Due on 0 due Goal Depression scree enrico. Due on due Goal Pap/HPV testing. Due on due Goal Cologuard. Due on 3 due Goal Depression scree ernico. Due on due Goal Colonoscopy. Due on due Goal Zoster vaccine (2nd) due Goal DEXA Scan. Due on 0 due Goal Lipid Panel. Due on due Goal Breast US, Unila teral, Complete. Due on due Goal Zoster vaccine (1st) due Goal Diabetes screening. Due on due Goal Pap/HPV testing. Due on due Goal Cologuard. Due on 3 due Goal Breast US, Unila teral, Complete. Due on due Goal DEXA Scan. Due on 0 due Goal Pap/HPV testing. Due on due Goal Colonoscopy. Due on due Goal Zoster vaccine (2nd) due Goal Cologuard. Due on 3 due Goal Diabetes screening. Due on due Goal Zoster vaccine (1st) due Goal Lipid Panel. Due on due Goal Depression scree enrico. Due on due Goal Cologuard. Due on due Goal DEXA Scan. Due on 0 due Goal Pap/HPV testing. Due on due Goal Diabetes screening. Due on due Goal Colonoscopy. Due on due Goal Depression scree enrico. Due on due Goal Lipid Panel. Due on due Goal Pap/HPV testing. Due on due Goal Lipid Panel. Due on due Goal Depression scree enrico. Due on due Goal Cologuard. Due on 3 due Goal Diabetes screening. Due on due Goal DEXA Scan. Due on 0 due Goal Colonoscopy. Due on due Goal Depression scree enrico. Due on due Goal Colonoscopy. Due on due Goal Diabetes screening. Due on due Goal DEXA Scan. Due on 0 due Goal Pap/HPV testing. Due on due Goal Lipid Panel. Due on due Goal Cologuard. Due on 3 due Goal Mammogram. Due on 9 due Goal Pap/HPV testing. Due on due Goal Diabetes screening. Due on due Goal Cologuard. Due on 3 due Goal Lipid Panel. Due on due Goal Depression scree enrico. Due on due Goal DEXA Scan. Due on 0 due Goal Colonoscopy. Due on 022 due Goal Mammogram. Due on 9 due Goal Diabetes screening. Due on due Goal Colonoscopy. Due on 013 due Goal Depression scree enrico. Due on due Goal Cologuard. Due on 3 due Goal Pap/HPV testing. Due on due Goal Lipid Panel. Due on 023 due Goal DEXA Scan. Due on 0 due Goal Colonoscopy. Due on 013 due Goal DEXA Scan. Due on 2 due Goal Pap/HPV testing. Due on due Goal Mammogram. Due on 9 due Goal Lipid Panel. Due on 023 due Goal Diabetes screening. Due on due Goal Cologuard. Due on 9 due Goal DEXA Scan. Due on 2 due Goal Colonoscopy. Due on 013 due Goal Influenza vaccine. Due on due Goal Pap/HPV testing. Due on due Goal Diabetes screening. Due on due Goal Zoster vaccine. Due on due Goal Lipid Panel. Due on 023 due Goal Mammogram. Due on 9 due Goal DEXA Scan. Due on 2 due Goal Mammogram. Due on 9 due Goal Influenza vaccine. Due on due Goal Diabetes screening. Due on F due Goal Pap/HPV testing. Due on due Goal Colonoscopy. Due on 013 due Goal Zoster vaccine. Due on due Goal Lipid Panel. Due on 023 due Goal DEXA Scan. Due on 0 due Goal Influenza vaccine. Due on due Goal Lipid Panel. Due on 023 due Goal Pap/HPV testing. Due on due Goal Colonoscopy. Due on 013 due Goal Mammogram. Due on 9 due Goal Diabetes screening. Due on O due Goal Zoster vaccine. Due on due Goal Colonoscopy. Due on 017 due Goal Influenza vaccine. Due on due Goal Pap/HPV testing. Due on due Goal Zoster vaccine. Due on due Goal Colonoscopy. Due on 017 due Goal Influenza vaccine. Due on due Goal Zoster vaccine. Due on due Goal Pap/HPV testing. Due on due Goal Influenza vaccine. Due on due Goal Zoster vaccine. Due on due Goal Pap/HPV testing. Due on due Goal Colonoscopy. Due on 017 due Goal Pap/HPV testing. Due on due Goal Zoster vaccine. Due on due Goal DEXA Scan. Due on 0 due Goal Influenza vaccine. Due on due Goal Mammogram. Due on 9 due Goal Colonoscopy. Due on due Goal Zoster vaccine. Due on due Goal Pap/HPV testing. Due on due Goal Influenza vaccine. Due on due Goal Colonoscopy. Due on 017 due Goal H&P. Due on due Goal Pap/HPV testing. Due on due Goal Influenza vaccine. Due on due Goal Zoster vaccine. Due on due Goal Zoster vaccine. Due on due Goal Pap/HPV testing. Due on due Goal Influenza vaccine. Due on due Goal Pap/HPV testing. Due on due Goal Influenza vaccine. Due on Oc due Goal Pap/HPV testing. Due on due Goal Diabetes screening. Due on due Goal Depression scree enrico. Due on due Goal Diabetes screening. Due on due Goal Influenza vaccine. Due on Oc due Goal Depression scree enrico. Due on due Goal Pap/HPV testing. Due on due Goal Influenza vaccine. Due on Oc due Goal Diabetes screening. Due on due Goal Depression scree enrico. Due on due Goal Pap/HPV testing. Due on due Goal Diabetes screening. Due on due Goal Pap/HPV testing. Due on due Goal Influenza vaccine. Due on Oc due Goal Depression scree enrico. Due on due Goal Influenza vaccine. Due on Oc due Goal Pap/HPV testing. Due on due Goal Depression scree enrico. Due on due Goal Diabetes screening. Due on due Goal Diabetes screening. Due on due Goal Influenza vaccine. Due on due Goal Pap/HPV testing. Due on due Goal Depression scree enrico. Due on due Goal Diabetes screening. Due on due Goal Pap/HPV testing. Due on due Goal Depression scree enrico. Due on due Goal Depression scree enrico. Due on due Goal Pap/HPV testing. Due on due Goal Pap/HPV testing. Due on due Goal H&P. Due on due Goal Influenza vaccine. Due on Oc due Goal Tdap due Goal Depression scree enrico. Due on due Goal Pneumococcal vaccine due Goal Breast exam. Due on 010 due Goal Mammogram. Due on 0 due Goal Lipid Panel. Due on due Goal H&P. Due on due Goal Breast exam. Due on due Goal Lipid Panel. Due on due Goal Mammogram. Due on 0 due Goal H&P. Due on due Goal Mammogram. Due on 0 due Goal Tobacco cessation counseling completed Goal Lipid Panel. Due on due Goal Breast exam. Due on due Goal H&P. Due on due Referral Ordered: Venous Duplex, Unilateral/Limited Study Left leg ordered Referral Ordered: Soft Tissue US Of Joint, Muscle, Nerve, Other Soft Tissue Structures Left leg ordered Referral Ordered: CT Coronary Calcium Score ordered Referral Ordered: Bernie SILVA, Daniel -Allopathic & Osteopathic Physicians : Otolaryngology (related to Chronic serous otitis media, bilateral) ordered Referral Referred To: Bernie SILVA, Daniel [address] [place] [address]
[address] [place], [place], [phone] Ordered: Referrals: Allopathic & Osteopathic Physicians : Otolaryngology. Bernie SILVA, Daniel. Consult ordered Referral Ordered: Abdominal Ultrasound ordered Referral Ordered: Shoulder, X Ray, Complete Left ordered Referral Ordered: Breast Ultrasound Right ordered Referral Ordered: Mammogram, Diagnostic, Unilateral R ordered Referral Ordered: Rad Exam Abd; Complt Acute Abd Appointment date/timeframe: 1 Day ordered Referral Ordered: MELLY VERGARA -Pulmonology (related to Cough) ordered Referral Referred To: MELLY VERGARA [address] [place] [address] [phone] Ordered: Referrals: Pulmonology. MELLY VERGARA. Consult ordered Referral Ordered: Chest X-ray, PA And Lat ordered Referral Ordered: ELAINE BOO MD -Vascular Surgery (related to Varicose veins of unspecified lower extremities with pain) ordered Referral Ordered: ELAINE BOO -Surgery (related to Varicose veins of unspecified lower extremities with pain) ordered Referral Referred To: ELAINE BOO [address] [place] [address] [phone] Ordered: Referrals: Surgery. ELAINE BOO. Evaluate and treat ordered Referral Referred To: ELAINE BOO MD [address] [place] [address] [phone] Ordered: Referrals: Vascular Surgery. ELAINE BOO MD. Evaluate and treat ordered Referral Ordered: Renal Ultrasound Appointment date/timeframe: 08/07/2011 ordered Future Order: Lab Order CMP ([id number]), Scheduled for: , Scheduled for: Sent Future Order: Lab Order Lipid Pa nata w/Non-HDL, Chol/HDL Ratio Calc ([id number]), Scheduled for: , Scheduled for: Sent Future Order: Lab Order Lipid Pa nata w/Non-HDL, Chol/HDL Ratio Calc ([id number]), Scheduled for: , Scheduled for: Sent Future Order: Lab Order CoVID-19 ([id number]), Sent on: Sent Future Order: Lab Order CBC Manu al Diff ([id number]), Sent on: Sent Future Order: Lab Order Vitamin D, 25-Hydroxy ([id number]), Sent on: Sent Future Order: Lab Order VITAMIN D (25-HYDROXY) ([id number]), Ordered on: Ordered Future Order: Lab Order C9 (Basi c Metabolic Profile) ([id number]), Ordered on: Ordered Future Order: Lab Order LIPID (L 299.05575), Ordered on: Ordered Future Order: Lab Order WOUND CU LTURE ([id number]), Ordered on: Ordered Future Order: Lab Order C9 (Basi c Metabolic Profile) ([id number]), Ordered on: Ordered Future Order: Lab Order AMYLASE ([id number]), Ordered on: Ordered Future Order: Lab Order LIPASE ( [id number]), Ordered on: Ordered Future Order: Lab Order CBCA (L1 [id number]), Ordered on: Ordered Future Order: Lab Order C14(Comp rehensive Metabolic Profile) ([id number]), Ordered on: Ordered Future Order: Lab Order Stool cu lture (L200.63461), Ordered on: Ordered Future Order: Lab Order STOOL FO R WBC ([id number]), Ordered on: Ordered Future Order: Lab Order C DIFFIC ILE TOXIN ASSAY ([facility]) (L600.96101), Ordered on: Ordered Future Order: Lab Order C14(Comp rehensive Metabolic Profile) ([id number]), Ordered on: Ordered Future Order: Lab Order URINALYS IS W/MICROSCOPIC ([id number]), Ordered on: Ordered Future Order: Lab Order THYROID STIMULATING HORMONE ([id number]), Ordered on: Ordered Future Order: Lab Order LIPID (L [id number]), Ordered on: Ordered Future Order: Lab Order C14(Comp rehensive Metabolic Profile) ([id number]), Ordered on: Ordered Future Order: Lab Order CBCA (L1 00.05418), Ordered on: Ordered Future Order: Lab Order C14(Comp rehensive Metabolic Profile) ([id number]), Ordered on: Ordered Future Order: Lab Order THYROID STIMULATING HORMONE ([id number]), Ordered on: Ordered Future Order: Lab Order LIPID (L 299.95890), Ordered on: Ordered Future Order: Lab Order CBCA (L1 [id number]), Ordered on: Ordered Future Order: Lab Order THYROID STIMULATING HORMONE ([id number]), Ordered on: Ordered Future Order: Lab Order C9 ([id number]), Ordered on: Ordered Future Order: Lab Order MAGNESIU M ([id number]), Ordered on: Ordered History Of Present Illness Encounter Date Complaint History Of Prese nt Illness follow up visit Patient is patsy stewart to [place] 02/09/23. Patient says she is ready for the move for the most part. States she has not found a new PCP yet, but she plans to. States she has been cutting back on smoking, at most will now have 8 cigarettes a day. Says she has noticed that cutting back on smoking is increasing her anxiety a bit, especially when she is stressed. She has been taking 1/2 tablet of Alprazolam about 3 times per week. Patient states she has been taking Gabapentin 300mg and Ibuprofen 800mg on occasion when her knee is very painful. Says she was told she will end up needing a total knee replacement. Says she has noticed the cutting out Crystal light seemed to help with the inflammation in her knees and hands, says she stopped it for a few weeks and her pain had improved. Patient complaining of mild nasal congestion, postnasal drip, cough and ear pressure. Says it feels like there is fluid in her ears. Otherwise she is doing well, no complaints today. Chronic Conditions *See Chronic Conditions Template medicare preventive The patient has not felt depressed and has had interest and pleasure doing things recently. SLUMS assessment completed, with a total score of 29, Normal. The ''Up and Go'' test took less than 30 seconds and the patient does not need help with activities of daily living. The patient is not at risk for falls. The patient has not fallen in the last year. The fall(s) did not result in injury. Patient's activity level is Active. Patient exercises daily. The patient has smoke detectors, carbon monoxide detectors in the home. Patient reports using a seatbelt in vehicles. Patient reports a Regular diet. Patient reports taking a calcium supplement. Patient reports taking a vitamin D supplement. Patient reports taking a multivitamin daily. Patient does not take folic acid. Relevant history is positive for tobacco use. Relevant history is negative for alcohol use. Chronic Conditions *See Chronic Conditions HPI Cough Onset: 1 Month. The severity of the problem is moderate. The problem has worsened. Symptoms are associated with COPD. Aggravating factors include lying down. Symptoms are relieved by antihistamines, decongestants, OTC cough syrup and bronchodilators. Relieved by additional comments: Prednisone. Associated symptoms include cough, dyspnea, nasal congestion, postnasal drainage, sinus pressure and wheezing. Pertinent negatives include chills/rigors, fatigue, fever, headache or otalgia. Cough Onset: 2 Weeks. The severity of the problem is moderate. The problem has not changed. Symptoms are associated with recent cold. Symptoms are relieved by inhalers. Relieved by additional comments: Flonase. Associated symptoms include cough (productive with clear sputum), dyspnea, fatigue, nasal congestion and postnasal drainage. Pertinent negatives include chills/rigors, fever or headache. Comments: NB! Pl ease note that >30 min today was spent on reviewing old records, new information, interpreting this information for the patient, performing medically appropriate exam, ordering new medications, counseling/education of the patient, psychological reassurance and making sure that the patient verbalized understanding of the plan, documenting clinical information in EMR. All the patient`s questions were answered to the best of my knowledge. Chronic Conditions *See Chronic Conditions HPI cold symptoms Onset: 1 week ag o. Associated symptoms include cough, fatigue and nasal congestion. Additional information: Pt states she has had cold sx since she got her flu shot x2 weeks ago. Chronic Conditions *See Chronic Conditions HPI follow up visit Patient presents today for follow up visit. Admits she did not go for labs. States she has been trying to work on her diet and quitting smoking. States she did have a bought of depression and she ended up eating more initially but now she is trying to work on her diet. Says she also bought the nicotine patches and plans to start them 04/02/22. She has been under a lot of stress because they are in the process of moving to [facility] and maintaining 2 households and trying to pack up her current house has been very stressful. Says about 1 month ago she developed nasal congestion, postnasal drip, clogged ears, sinus pressure, cough, chest congestion and occasional SOB. Says she is getting occasional green mucous. Says symptoms have not improved despite using her inhalers, Alovert and Flonase regularly. States she does not feel like she is improving at all. preventive exam Positive for: br east self exam.Postmenopausal: Type: hysterectomy w/BSO. Diet Regular.The patient states her exercise level is Light and frequency is daily. The patient does use tobacco. She does not drink alcohol. preventive exam (comments) Overa ll patient feels well, states she noticed a lump on the outside of her left lower leg about 2 months ago. Says when she first noticed it the area was sore to the touch but no bruising or discoloration and no known injury to the area. States it has been growing in size over the past few months and occasionally it will cause a stabbing pain at night.Patient also mentioned she has been stressed recently. Says her had back surgery and his recovery has been slow which is stressful. They are also having some financial difficulties. Also says her son who is 38 also recently told her that he is going to transition to being a woman. Patient states she is not upset about his decision, but she is more upset about the fact that he told her he has been feeling this way since he was in middle school and felt like he couldn't talk to her about it. States they also bought a house in [place] where she grew up and they plan to retire there in a few years. Chronic Conditions *See Chronic Conditions HPI cold symptoms Onset: 2 weeks a go. The patient describes the cough as productive. Context: allergies and COPD. Associated symptoms include cough, nasal congestion, post-nasal drainage and sinus pressure. Pertinent negatives include chills, dyspnea, fatigue, fever and sore throat. Additional information: Patient had a rapid COVID test today which was negative. preventive exam Her menses is ab sent. Positive for: breast self exam.Postmenopausal: Type: hysterectomy w/BSO. Menopausal symptoms negative for: insomnia. Pertinent negatives include anxiety and depression. Diet Healthy.The patient states her exercise level is Light and frequency is 2-3 times/week. She does not drink alcohol. Additional information: Patient is complaining of itchy rash in groin area and on the outside of her vagina. Says rash has been going on for about 3-4 months and she has been using an ointment prescribed by her Software Specialist with only mild improvement. Says recently she completed a course of abx for her ears and afterward developed a yeast infection - was having a lot of internal vaginal itching and some discharge. Used Monistat with improvement in symptoms, but does not feel it has fully resolved. . Chronic Conditions *See Chronic Conditions HPI Earache Onset: 2 weeks a go. The patient states the earache is in both ears. It occurs constantly. The problem is worse. Associated symptoms include ear pressure, fullness in ears, hearing deficit and ringing in ears. Pertinent negatives include dizziness, drainage (clear), drainage (purulent), nausea, redness/swelling outer ear and vomiting. Additional information: Was found to have fluid in ears in June when seen by Edel Hall PA-C. Has been using Flonase without much relief. Ears still feel full and diminished and muffled hearing as well. Tinnitus L Ear The symptoms beg an 1 month ago. Patient complaining of a pulsing sensation in her left ear x 1 month. Says it used to occur randomly on and off, but she feels over the past month it has been more frequent. Says it waxes and wanes in intensity. Feels a slight pulse right now. Says symptoms seem to occur intermittently, but lately it has been more frequent - says it is occurring 1-2 times per day and will usually last a few hours and then resolve. Admits to some left ear pressure and a clogged sensation. Denies any ear pain or drainage from the ear. ear pain ear pain (comments) Patient pres ents due to right ear pain for the past 2 days. She also notes a mild sore throat, PND, and a dry cough for the past week or so. The cough is nonproductive. She does note some wax that she was able to remove from the right ear. Notes intermittent headaches as well. She denies sinus congestion but not mucus production. She denies a fever, sob, obrien. She denies GI symptoms. She denies tinnitus, dizziness. Denies loss of taste/smell. This was a telemedicine visit performed via [facility]. Patient consent was obtained prior to visit. UTI Onset: 3 Days. P resenting/Initial symptoms include urgency. UTI (comments) Patient presents due to urinary symptoms for the past 3 days. States that symptoms began Wednesday, She reports dysuria, urinary frequency and urinary urgency. Also notes some hematuria but this has subsided. Denies fever, flank pain. Denies a fever. Has not had a UTI in years. She has tried Cystex OTC and has been drinking a lot of water. preventive exam Her menses is ab sent. Positive for: breast self exam.Postmenopausal: Type: hysterectomy w/BSO. Diet Healthy.The patient states her exercise level is Light and frequency is 2-3 times/week. The patient does use tobacco. She does not drink alcohol. Lump The symptoms beg an 2 days ago. Patient complaining of a lump in her left axilla x 2 days. Patient says she has been using warm compresses, but feels like now it is deeper inside. Says it is painful to touch. States she is concerned because many years ago she had a similar issue and it ended up having to be surgically removed so she is concerned. Denies any fevers or drainage. f/u paperwork work f/u paperwork work (comments) Xander josé presents for a flu shot and to have paperwork filled out. 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 She will need bloodwork done to have titers checked for MMRV. No other questions or concerns with anything here today. Earache (comments) b/l ear pain and ringing. has history of wax impaction. has been using debrox and qtips Earache L shoulder pain Patient states t hat she has been having L shoulder pain since this past Wednesday (2 days). It has been gradually gotten worse over the last 2 days. She also started having green stools (formed) on Wednesday. She has been having a lot of other health issues as well - she has been started on methotrexate for her psoriasis (not sure if it has been working) and was also put on meloxicam for her orthopedic pain, but found out there was an interaction between the two and so she stopped taking the meloxicam, but note that her orthopedic pain has restarted off the meloxicam. She was seen this past Wednesday for her low back pain as well - has bone spurs on L3-L4. Has been feeling generalized fatigue, periodic headaches, night sweats (is past menopause). Lump The symptoms beg an 1 week ago. Patient states about 1 week ago she felt a lump under her right axilla. Says that at first she felt like it was more outward but now the lump is deeper inside. Says she went to a Software Specialist today for her psoriasis and mentioned it to them and they said it was a lymph node and asked if she had any recent infections. Had a right TKR 06/14/18 so is concerned about infection setting into the join. Also has some night sweats, LN mildly tender to touch. Denies any URI symptoms, nausea, vomiting, diarrhea, abdominal pain, or urinary symptoms. She had a Mammogram 12/2017 which was negative. Cough The severity of the problem is moderate. The problem has not changed. The symptoms are persistent. Symptoms are associated with history of asthma and recent cold. Aggravating factors include cold air and lying down. The denies relieving factors. Associated symptoms include cough (dry) and postnasal drainage. Pertinent negatives include chills/rigors, dyspnea, facial pain, fatigue, fever, headache, hemoptysis, myalgia, nasal congestion, otalgia, pharyngitis, rash, rhinitis, sinus pressure, sputum, tooth pain or wheezing. Additional information: no infectious sxs lungs clear no wheeze more sinus congestion from allergies. Chronic Conditions *See Chronic Conditions HPI cough Onset: 1 Week. T he severity of the problem is moderate. The problem has worsened. The symptoms are persistent. Symptoms are associated with history of allergies, history of asthma, recent cold and smoker. Aggravating factors include exertion and lying down. Symptoms are not relieved by OTC analgesics. Associated symptoms include chills/rigors, cough, dyspnea, fatigue, headache, myalgia, nasal congestion, otalgia, pharyngitis, postnasal drainage, rhinitis and wheezing. Pertinent negatives include facial pain, fever or sinus pressure. Additional information: started with nasal congestion, postnasal drip, developed cough over the weekend. not helped by OTC therapies. scheduled for knee replacement jun 14. cough (comments) Supposed to be on Breo daily but hasn't been using regularly, has been using as needed. has nebulizer at home, but hasn't been using itwas recently on antibiotics CPX Chronic Conditions *See Chronic Conditions HPI CPX (comments) Patient states t hat she is doing okay overall. Is a little bored because she was forced into jail, does enjoy quilting, but thinks she may want to get back into a job in her field, but would have to go back to school and she does not want to do that. Is generally achy and follows with dermatology, has seen rheum, for psoriatic arthirits, hooker through it for the most part, has tried many medications and is tired of them and has a referral to try medical marijuana, currently uses CBD oil topically which helps with her psoriasis. No longer need to follow with gynecology, she had SHARON. She is not UTD on mammogram, last one was 2008, is agreeable to getting one as she now has the time due to her retirements. She is UTD on dental, saw last month, sees every 6 months. She is UTD on ophthalmology, saw last May, follows with yearly. She thinks she is UTD on colonoscopy, had in 2013, unsure of the recommended follow up. She is not UTD on Dexa, had in 2009, is agreeable to getting one. Did not get the flu shot this year, did have her first PNA shot [place] [address] Vergara. States that she has intentionally lost about 30+ lbs over the past 2 years - was following with nut[facility]ystem and wants to get back to doing that as she has more recently been lax with her diet. Does eat veggies and fruits, but she was eating more of them when on nutrisystem. She is regularly exercising - walks twice a day, 1/2 mile each time, now has a new Palestinian Rocha puppy who she will walk as well. Does not wear sunblock. Abdominal pain Onset: 1 Day. Th e location is midline. Associated symptoms include bloating, change in appetite, constipation and flatulence. Pertinent negatives include back pain, blood in stool, diaphoresis, diarrhea, dizziness, dyspnea, eructation, fever, flank pain, heartburn, hematuria, jaundice, myalgia, nausea and vomiting. Additional information: She mentions BM have decreased with last normal" one on wednesday. She admits BM was small/thin. She tried miralax once without good effect. She has hx of diverticulitis. Follow Up of Cough (comments) Pt presenting with cc of cough since early August. Pt was treated with abx x 2 with little relief of sxs. CXR indicated hyperinflation. Pt admits to smoking for 43 years , 1/2 - 1 PPD. She has quit smoking for the past 3 weeks and has been on the Nicoderm patch. Pt notes that the wheezing has improved, however she is still coughing. For the past few days, she has been producing green mucous. Associated sxs include pnd, throat tightness, occ sob that is worse with exertion. Pt describes globus sensation in her throat and hoarseness over the past several weeks as well. Pt notes that cough occurs throughout the day but is sometimes worse in the mornings.Pt denies fever, night sweats, chest pain, pleuritic pain, hemoptysis, abdominal pain, heartburn, n/v/d, leg edema. Follow Up of Cough cough/ asthma pt still having issues with coughing. started with a URI 3 weeks ago. asthma got really bad beginning of the weekend. now for past week, getting sweats randomly. no check ing of her temp. pt did great with a neb at the urgent care but the pred is not helping she is coughing nonstop still . sweats PND. head congestion cold symptoms/ x month pt with d iarrhea on otezla. even had a panic attack on it. for the psoriatic arthritis. had URI 1 month ago. improved with augmentin. started 1 week ago iwth a new one. no fever using inhaler using nyquil med side effect pt has had 5 day h/o watery diarrhea, nausea, crying spells, fatigue and a panic attacks. sx all began wihtin hours of taking incr dose of otezla through rheum for her RA. she was told to decr her dose today. very weepy. has hx of anxiety but never depression. her last dirreha was yesterday. she was going >5times/day. no abd pain, fever, chills, vomiting, hematochezia, belly pain, sucuuidal ideation, recent URI sx or swollen glands. she feels wiped out, fatigued and had some lower ext msucle cramps. feels dry and dehydrated. she admits to poor po hydration. earache Onset: 10 days a go. The states the earache is in both ears. Denies aggravating factors. Associated symptoms include congestion (nasal), ear pressure, fullness in ears, malaise and ringing in ears. Pertinent negatives include drainage (clear) and loss of balance. musculoskeletal pain Onset: 6 mo nths ago. Location: right knee. The pain is aggravated by climbing (and descending) stairs, movement, sitting, walking and standing. Associated symptoms include swelling. Additional information: pt with right knee pain and swelling. has underlying issues but now possible psoriatic arthritis. vs other systemic arthritis. joint fluid is negative for lyme. r/o other autoimmune issues. also varicose veins. neg dopplers. Discuss Azucena D pt has had vit D def in past. now has bad psoriasis and seen derm not better read that vit D supp can help so will try Grief reaction pts sister unexpectantly. took off machines after Mitral valve surgery that she never recovered from. she is having tough time recovering and dealing with the . she is crying all the time. has anxiety rxns she cannot sleep very distraught. she is asking for assistance. pain left side of face The sympt oms began 3 days ago. pain radiates into eye. Pt yawned 3 days ago and felt sudden discomfort Lt jaw, ant to LT ear. She denies any visual changes. The pain radiates to Lt cheek with chewing. No nasal D/C, aural D/C. No f/c. chronic conditions 1) Other and unspecified hyperlipidemia (onset ; Stable.) 2) Unspecified essential hypertension (onset 01/03/2009; [place] [employer].) 3) Depressive disorder, not elsewhere classified (onset 06/06/2009; No Evidence Of Disease.) 4) Asthma, unspecified (onset ; Stable.) Pertinent negatives include fatigue, weight gain and weight loss.pt doing well emotionally therapy helped her a great deal she needs to exercise and lose wt now URI Onset: 1 Day. Th e severity of the problem is moderate. The problem has worsened. The symptoms are persistent. Associated symptoms include cough, nasal congestion, otalgia and postnasal drainage. pt was seen lst week and has been using suportive measurse. she has over the past 2 days noticed incr right maxillary sinus pain, right ear pain and thick brown nasal d/c. teeth ache. no fever, but feels sweats and chills. coughing as well. no sob, pleuritic pain, allergy sx, wheezing or edema. cold symptoms Onset: 10 Days. Symptoms are associated with sick family member and smoker. Symptoms are relieved by throat lozenges. Associated symptoms include chills/rigors, cough (productive with clear sputum), facial pain, fatigue, postnasal drainage and sinus pressure. Additional information: Sx started about a week and a 1/2 ago. Cough is worse in the morning when she first wakes up or when she talks a lot, by end of day voice is basicly gone. Pt is taking suddafed at night to suppress cough so she can sleep. Functional Status Date Functional Assessmen t No Information Instructions Date Instruction Additional Infor sebastian Continue Cosentyx an d follow up with Dermatology as scheduled. Related to Psoriasis, unspecified Advised to use Flona se and OTC antihistamine x 1-2 weeks for symptom relief. She understand and agrees with plan. Related to Allergic rhinitis, unspecified Continue Breo Ellipta daily Rela raymond to Chronic obstructive pulmonary disease, unspecified Discussed importance of low cholesterol diet, exercise and weight loss. CT Coronary Calcium score was 66, patient refused statin at the time, is working on diet and lifestyle modifications. Related to Hyperlipidemia, unspecified Continue Alprazolam PRN increased anxiety. Proper use and potential risk of abuse dependence reviewed with patient. Advised to follow up if anxiety symptoms increase in frequency or worsen. She will look for a PCP to establish with once she is settled in [place]. She understands and agrees with plan. Related to Anxiety disorder, unspecified Reviewed use of antihistamines. Related to Allergic rhinitis, unspecified Discussed avoidance of specific allergens. Related to Allergic rhinitis, unspecified Reviewed appropriate med. use Re lated to Anxiety disorder, unspecified Continue all meds as prescribed Related to Anxiety disorder, unspecified risks and benefits of meds disc. Related to Anxiety disorder, unspecified Reviewed appr. use o f benzodiazepines Related to Anxiety disorder, unspecified Low animal fat diet reviewed Rel ated to Hyperlipidemia, unspecified Regular exercise encouraged Rela raymond to Hyperlipidemia, unspecified Reviewed use of MDIs Related to Chronic obstructive pulmonary disease, unspecified Exercise program reviewed Relate d to Chronic obstructive pulmonary disease, unspecified Reviewed use of nasal steroid. R elated to Allergic rhinitis, unspecified Continue Cosentyx an d follow up with Dermatology as scheduled. Related to Psoriasis, unspecified LDL cholesterol 129, HDL 63. Discussed with patient the importance of low cholesterol diet, exercise and weight loss. Advised goal LDL is <70. Encouraged to try CoQ10 OTC to see if that will help lower LDL. Will recheck labs in 3 months before patient moves. She understands and agrees with plan. Related to Hyperlipidemia, unspecified Continue current med ication regimen and follow up with Pulmonary as scheduled. Related to Chronic obstructive pulmonary disease, unspecified EKG performed today. Reviewed labs - LDL cholesterol 129, HDL 63. Mammogram is up to date. Bone Density is up to date. Colonoscopy is up to date. Patient encouraged to follow up for Eye and Dental exams as scheduled. PCV 20 administered today, patient tolerated well, no complaints. All other vaccines are up to date. Discussed importance of healthy diet, exercise and weight loss. Patient encouraged to call or return to office with any questions or concerns, otherwise can follow up for physical exam in 1 year. She understands and agrees with plan. Related to Encounter for general adult medical examination without abnormal findings Reviewed pulmonary followup Rela raymond to Chronic obstructive pulmonary disease, unspecified Counseled on dietary changes Counseled on weight reduction Reviewed and encoura ged exercise program Related to Encounter for general adult medical examination without abnormal findings Counselled healthy diet Related to Encounter for general adult medical examination without abnormal findings Reviewed [facility] protocols Related to Encounter for general adult medical examination without abnormal findings Rec Calcium and Vit. D supplemen t Related to Encounter for general adult medical examination without abnormal findings Reviewed lab studies Related to Encounter for general adult medical examination without abnormal findings Reviewed age appropriate vaccine s Related to Encounter for general adult medical examination without abnormal findings Low animal fat diet reviewed Rel ated to Hyperlipidemia, unspecified Regular exercise encouraged Rela raymond to Hyperlipidemia, unspecified labs reviewed Related to Hyper lipidemia, unspecified Reviewed use of MDIs Related to Chronic obstructive pulmonary disease, unspecified Rapid COVID test in office today was negative. Discussed with patient symptoms are likely post-viral in etiology. She was treated with 2 different antibiotics and 2 courses of Prednisone. Advised lungs do sound better today so encouraged to complete full course of Prednisone and continue to use inhalers daily. Also advised to try Flonase, OTC antihistamine and Mucinex for additional symptom relief. Encouraged to call or return to office or follow up with Pulmonary if symptoms do not improve or worsen. She understands and agrees with plan. Related to Acute cough Encouraged to contin ue higher dose of Breo Ellipta and to use albuterol nebulizer 1-2 times daily as needed for additional symptom relief. Will also give RX for Benzonatate to help with cough. Will give RX for low short course of Prednisone if symptoms do not improve or worsen despite possibility of psoriasis flare up. Patient will call or return to office if no improvement or if symptoms worsen. She understands and agrees with plan. Related to COPD w/ acute exacerbation Will treat with Augm entin BID x 10 days. Patient encouraged to use Flonase OTC for additional symptom relief. Advised to call or return to office if symptoms do not improve or worsen. She understands and agrees with plan. Related to Acute sinusitis, unspecified Nasal steroid spray Related to A cute sinusitis, unspecified Complete course of antibiotic Re lated to Acute sinusitis, unspecified Return if not improving Related to Acute sinusitis, unspecified Complete course of antibiotics R elated to COPD w/ acute exacerbation Reviewed use of MDIs Related to COPD w/ acute exacerbation Increase fluid intake Related to COPD w/ acute exacerbation We will increase the dose of Breo to 200-25 mcg 1 puff dailyWe will add Spiriva 1 puff dailyMedrol pack as aboveWill cover with Z-Wolf Related to COPD w/ acute exacerbation Flonase twice daily as needed in conjunction with salineMedrol pack Related to Acute sinusitis, unspecified Will continue curren t medication regimen. Related to Chronic obstructive pulmonary disease, unspecified Discussed symptoms w ith patient and possibility of starting antidepressant to help with her symptoms during this stressful time but patient declines. Discussed coping skills, and encouraged to call or return to office if symptoms do not improve or worsen. She understands and agrees with plan. Related to Adjustment disorder with depressed mood Patient did not go f or labs. Discussed importance of low cholesterol diet, exercise and weight loss. Patient informed if cholesterol is not improved then she should be started on statin therapy. She understands and agrees with plan. Related to Hyperlipidemia, unspecified Low animal fat diet reviewed Rel ated to Hyperlipidemia, unspecified Regular exercise encouraged Rela raymond to Hyperlipidemia, unspecified Reviewed appropriate med. use Re lated to Adjustment disorder with depressed mood Encouraged counselling Related t o Adjustment disorder with depressed mood risks and benefits of meds disc. Related to Adjustment disorder with depressed mood Reviewed appr. use o f benzodiazepines Related to Adjustment disorder with depressed mood Report if symptoms worsen. Relat ed to Chronic obstructive pulmonary disease, unspecified Will continue curren t medication regimen. Encouraged to call or return to office if symptoms worsen. Related to Chronic obstructive pulmonary disease, unspecified Patient does not wan t to start medication or follow with a therapist at this time. Feels she will be able to manage her symptoms well on her own and get through this rough patch. States she will likely look into joining a support group for transgender parents because she thinks it will be helpful. Encouraged to call or return to office if symptoms do not improve or if symptoms worsen. She understands and agrees with plan. Related to Adjustment disorder with depressed mood Will order LE dopple r and soft tissue US for further evaluation. Patient informed I will contact her with results. She understands and agrees with plan. Related to Localized swelling of left leg w/ lump Encouraged to follow up with Ortho as needed. Related to Unspecified osteoarthritis, unspecified site Encouraged to follow up with Dermatology as scheduled. Related to Psoriasis, unspecified LDL cholesterol 133, HDL 61. LDL improved from last visit, but discussed with patient goal LDL <100. Patient is hesitant about starting statin therapy. Discussed could do CT Coronary Calcium score for further evaluation. Patient is agreeable to this. Order placed and informed I will contact her with results. Encouraged to continue low cholesterol diet, exercise and weight loss. She understands and agrees with plan. Related to Hyperlipidemia, unspecified EKG performed today. Reviewed labs - LDL cholesterol 133, HDL 61. Mammogram is up to date. Bone Density is up to date. Colonoscopy is up to date. Eye and Dental exams are up to date. Vaccines are up to date. Discussed importance of healthy diet, exercise and weight loss. Related to Encounter for general adult medical examination without abnormal findings Reviewed and enc[employer]ra [employer] exercise program Related to Encounter for general adult medical examination without abnormal findings Counselled healthy diet Related to Encounter for general adult medical examination without abnormal findings Reviewed [facility] protocols Related to Encounter for general adult medical examination without abnormal findings Rec Calcium and Vit. D supplemen t Related to Encounter for general adult medical examination without abnormal findings Reviewed lab studies Related to Encounter for general adult medical examination without abnormal findings Reviewed age appropriate vaccine s Related to Encounter for general adult medical examination without abnormal findings Low animal fat diet reviewed Rel ated to Hyperlipidemia, unspecified Regular exercise encouraged Rela raymond to Hyperlipidemia, unspecified labs reviewed Related to Hyper lipidemia, unspecified Encouraged counselling Related t o Adjustment disorder with depressed mood risks and benefits of meds disc. Related to Adjustment disorder with depressed mood Reviewed appr. use o f benzodiazepines Related to Adjustment disorder with depressed mood Reviewed use of MDIs Related to Chronic obstructive pulmonary disease, unspecified Discussed viral vs. bacterial etiology of acute URI. Will give refills of albuterol inhaler and nebulizer solution. Encouraged to use nebulizer at night and during the day as needed. Also advised to continue Breo Ellipta and Mucinex for symptom relief. Encouraged to call or return to office if no improvement in 3-5 days or sooner if symptoms worsen. She understands and agrees with plan. Related to Upper respiratory infection increase fluids, demetra ine gargles and/or nasal irrigation as needed Related to Upper respiratory infection use OTC decongestant and cough suppressants as needed Related to Upper respiratory infection OTC analgesics as needed Related to Upper respiratory infection Reviewed lack of jose efit from antibx for viral infection Related to Upper respiratory infection Patient encouraged t o continue current treatment regimen and follow up with Dermatology as scheduled. Related to Rash Will treat with oral Diflucan. Patient encouraged to call or return to office if no improvement or if symptoms worsen. She understands and agrees with plan. Related to Vaginitis Will continue curren t medication regimen. Encouraged to call or return to office if no improvement or if symptoms worsen. She understands and agrees with plan. Related to Chronic obstructive pulmonary disease, unspecified Follow up with Ortho as needed R elated to Unspecified osteoarthritis, unspecified site Encouraged to follow up with Dermatology as scheduled. Related to Psoriasis, unspecified LDL cholesterol 156, HDL 68. Discussed with patient the importance of low cholesterol diet, exercise and weight loss. She is hesitant to start statin therapy. She wants to try OTC supplements and will continue to monitor diet and increase exercise. Will schedule follow up with pre-labs in 6 months. She understands and agrees with plan. Related to Hyperlipidemia, unspecified EKG performed today. Reviewed labs - LDL cholesterol 156, HDL 68. Patient encouraged to make appointments for Mammogram and Bone Density. Colonoscopy is up to date. Also encouraged to make appointments for Eye and Dental exams. Vaccines are up to date. Discussed importance of healthy diet, exercise and weight loss. Related to Encntr for general adult medical exam w/o abnormal findings Increase fluid intake Related to Chronic obstructive pulmonary disease, unspecified Reviewed use of MDIs Related to Chronic obstructive pulmonary disease, unspecified Reviewed age appropriate vaccine s Related to Encntr for general adult medical exam w/o abnormal findings Reviewed lab studies Related to Encntr for general adult medical exam w/o abnormal findings [facility]ed [facility] Related to Encntr for general adult medical exam w/o abnormal findings Counselled healthy diet Related to Encntr for general adult medical exam w/o abnormal findings Reviewed and encoura ged exercise program Related to Encntr for general adult medical exam w/o abnormal findings labs reviewed Related to Hyper lipidemia, unspecified Regular exercise encouraged Rela raymond to Hyperlipidemia, unspecified Low animal fat diet reviewed Rel ated to Hyperlipidemia, unspecified See above. Will refe r to ENT due to persisting fluid in ears as well. Related to Chronic serous otitis media, bilateral Patient is aware of diagnosis. Amoxicillin prescribed. Patient is aware of the risks vs benefits of this medication. She is aware to take the full course of the antibiotics. Also recommended OTC nasal spray for symptomatic relief. She will follow up with the office if symptoms persist or worsen. Patient understands and agrees to the plan. Will call the office with any new questions or concerns. Related to Otitis media Patient informed sym ptoms likely due to fluid in ear. Encouraged to start Flonase and OTC antihistamine once daily x 1-2 weeks. Informed to call or return to office if no improvement or if symptoms worsen. Will schedule physical for 08/2020. She understands and agrees with plan. Related to Pulsatile tinnitus, left ear Flu shot administere d IM left deltoid by JOSE E Trent, under my supervision without complication, well tolerated. If any redness, warmth, swelling were to develop around site of injection or if any other adverse reaction were to occur, contact the office. Related to Encounter for immunization Based on patient's c ulmination of symptoms, have agreed to get patient tested for Covid-19. Testing ordered and testing site information provided to patient. She will self-quarantine in the meantime. Advised Tylenol for symptomatic relief and adequate PO hydration. If she were to develop any new or worsening symptoms especially SOB, she will go to the ER. I will call patient when test results come back. Patient understands and agrees to the plan. Will call the office with any new questions or concerns in the interim. See below. Related to Cough Could be related to other symptoms or separate entity. I will likely not have Covid testing back before the weekend. Have agreed to send in Amoxicillin to cover for otitis media/sinus infection. She is aware of the risks vs benefits of medication. She tolerates this well despite cephalosporin allergy. If symptoms persist and Covid test is negative, will need in-office follow up. Patient understands and agrees to the plan. Related to Otalgia, right ear Urinalysis only show ing trace blood. Will start Macrobid empirically nonetheless based on symptoms. Patient is aware of the risks vs benefits of this medication. Will send urine out for culture. Will adjust antibiotic therapy if necessary pending culture results. If symptoms persist, she will follow up with the office. Patient understands and agrees to the plan. Related to Urinary frequency Continue current med ication regimen and follow up with Pulmonary as needed. Related to Chronic obstructive pulmonary disease, unspecified Follow up with [place] [facility] as scheduled. Related to Psoriasis, unspecified Continue to follow with Ortho Re lated to Unspecified osteoarthritis, unspecified site LDL cholesterol 149, HDL 72. Discussed importance of low cholesterol diet, exercise and weight loss. Will repeat lipid panel in 1 year. Informed if no improvement, may need to consider starting a statin. She agrees with plan. Related to Hyperlipidemia, unspecified EKG performed today. Reviewed labs - Fasting glucose 111, WBC 16.0, Neurophils 16465. LDL cholesterol 149, HDL 72. Patient encouraged to make appointment for Mammogram. Colonoscopy up to date. Eye and Dental exams up to date. Td vaccine administered today left deltoid, patient tolerated well. All other vaccines up to date. Discussed importance of healthy diet, exercise and weight loss. Discussed increased WBC's and glucose possibly secondary to cortisone injection - will repeat CBC and glucose with HbA1c in 1 month and contact patient with results. Informed to call or return to office with any questions or concerns, otherwise can follow up for physical in 1 year. She understands and agrees with plan. Related to Encntr for general adult medical exam w/o abnormal findings Continue same meds Related to Ch ronic obstructive pulmonary disease, unspecified Reviewed pulmonary followup Rela raymond to Chronic obstructive pulmonary disease, unspecified Report if symptoms worsen. Relat ed to Chronic obstructive pulmonary disease, unspecified Reviewed [facility] Related to Encntr for general adult medical exam w/o abnormal findings Reviewed lab studies Related to Encntr for general adult medical exam w/o abnormal findings Reviewed age appropriate vaccine s Related to Encntr for general adult medical exam w/o abnormal findings Rec Calcium and Vit. D supplemen t Related to Encntr for general adult medical exam w/o abnormal findings Low animal fat diet reviewed Rel ated to Hyperlipidemia, unspecified Regular exercise encouraged Rela raymond to Hyperlipidemia, unspecified labs reviewed Related to Hyper lipidemia, unspecified Reviewed use of MDIs Related to Chronic obstructive pulmonary disease, unspecified Reviewed and encoura ged exercise program Related to Encntr for general adult medical exam w/o abnormal findings Counselled healthy diet Related to Encntr for general adult medical exam w/o abnormal findings Will start treatment with antibiotic and patient encouraged to use warm compresses 2-3 times daily. Reassured if area opens and starts draining this is normal. Informed to call or return to office if no improvement in 1 week or sooner if symptoms worsen. She understands and agrees with plan. Related to Cutaneous abscess of left axilla Flu shot placed IM l eft deltoid without complication, well tolerated. If any redness, warmth, swelling were to develop around site of injection, contact the office. Blood work ordered to checked titers. I will call patient back when I get results and then will fill out appropriate paperwork. Patient understands and agrees to the plan. She will be making an upcoming physical after the new year. Related to Encounter for immunization Will get bw to [facility] er evaluate upper abdominal pain, may need to consider imaging pending bw results and symptoms. Will include lipase for pancreas. She will RTO with new or worsening symptoms. Related to Upper abdominal pain Seems like a msk cau se - has been on methocarbamol for sperate reason without much relief. Will get shoulder xray to further evaluate and follow up pending results. Advised to contact her economic adviser about trial off methotrexate as it does not seem to be helping her psoriasis and meloxicam was very helpful for her msk issues. She will RTO with new or worsening symptoms. She understands and agrees with plan. Related to Pain in left shoulder Likely localized claritza ctive lymph node. Patient encouraged to use hot compresses and stop shaving in that area until symptoms resolved. Will check CBC today since patient is concerned about systemic infection. Informed to call or return to office if she develops fevers or new symptoms, or if no improvement in 5-7 days. She understands and agrees with plan. Related to Localized enlarged lymph node related to PND and s inus cora no infection though will cont allergy meds and nasal sprays BID may have surgery lungs are clear Related to Cough continue inhalers. U RI is resolving and almost at her baseline. pt will finish augmentin in few days. f/u if needed only. Related to Chronic obstructive pulmonary disease, unspecified so far, she is off t obacco will try to remain tobacco free Related to Nicotine dependence, other tobacco product, uncomplicated -Prednisone burst-Al buterol nebs 3-4x daily for next 3-5 days Related to Unspecified asthma with (acute) exacerbation Discussed with sasha lira importance of diet and exercise - balanced diet with emphasis on fruits, veggies, and proteins with grains in moderation and the rare sweet as well as a minimum of 150 minutes of exercise each week. Bw reviewed - mild LDL elevation, leukocytosis, otherwise normal. Shingrix given in R deltoid, patileonn tolerated procedure well. She is UTD on dental and ophthalmology. She no longer needs to follow with gynecology. She may be UTD on colonoscopy, will ask GI office when she is due. She is not UTD on mammogram or DEXA scan, is agreeable to both, ordered and will follow up pending results. Encouraged daily multivitamin and regular use of sunblock and discussed risks of skin cancer. She will RTO with any questions or concerns. Otherwise, she will follow up in 2-6 months for shingrix dose #2. She understands and agrees with plan. Related to Encntr for general adult medical exam w/o abnormal findings Well controlled with lifestyle modifications alone, will continue to monitor and trend and treat if necessary. EKG reviewed and shows NSR with no significant changes from previous. Related to Essential (primary) hypertension uses prn benadryl Related to All ergic rhinitis, unspecified Bw reviewed - mild L DL elevation, no indication for treatment at this time, will continue to monitor, patient controls with diet and exercise. Discussed with patient lifestyle modifications to aid in reduction of cholesterol including reducing animal fats - red meats (steaks/burgers), pork and pork products, cheeses, eggs, and greasy/fatty foods. Also encouraged increase of exercise - a minimum of 150 minutes a week. She will RTO with any questions or concerns. She understands and agrees with plan. Related to Hyperlipidemia, unspecified Well controlled with prn breo and nebulizer during the spring and fall seasons Related to Asthma Syringe was used to successfully lavage the left ear. Impacted cerumen was completely removed from left ear, post-lavage the left TM is clear and intact. Patient tolerated procedure well. Discussed using hydrogen peroxide drops to prevent wax build-up and discouraged the use of Q-tips. Also discussed trying Flonase OTC to aide in the clogged feeling in her right ear. Asked to call or return to office if symptoms do not improve. Related to Impacted cerumen, left ear related to constipat ion vs colitis. Vitals stable at this time. Low suspicion for acute abdomen. Recommend increase fluids/discussed use of fleet enema/stool softners. Will check abdominal xray to r/o obstruction. Would advise patient call back by wednesday for results if not received by tomorrow. Related to Abdominal pain Pt would like to see a [employer], referral was placed. Offered spirometry but pt reports that she will have one done at work and will try to bring report with her. Will try 2 week trial of Omeprazole based on hx of globus sensation and hoarsenss.Encouraged use of flonase to reduce PND.Advised pt to call/RTO if sxs persist or increase in severity, Advised ER if sxs worsen or evolve. Related to Cough nebs rec cont pred t aper do CXR if positive will treat. will f/u if not better wednesday. ? sinus inf but has had 2 courses of abx. Related to Asthma Complete course of antibiotics R elated to Acute bronchitis Reviewed use of MDIs Related to Acute bronchitis Increase fluid intake Related to Acute bronchitis F/U if not better in 48 hrs on a bx Related to Acute bronchitis rec BRAT diet, incr fliuds, gatorade and check labs. f/u if sx persist or worsen. if med side effect would expect them to resolve over the next few days after being on lower dose of med Related to Diarrhea short term use of be nzo and would expect sx to irmpove over the enxt 5-7 days Related to Major depressive disorder, single episode, unspecified rec 1/2 tab of ativa n bid x 2-3 days prn. oow note. Related to Anxiety disorder, unspecified Complete course of antibiotic Re lated to Acute sinusitis, unspecified Return if not improving Related to Acute sinusitis, unspecified Reviewed OTC therapy for viral U RI Related to Acute sinusitis, unspecified Nasal steroid spray Related to A cute sinusitis, unspecified debrox to right ear RTO if needs flushing Related to Acute sinusitis, unspecified Advised nasal saline irrigation Related to Acute sinusitis, unspecified Continue same medications Relate d to Essential (primary) hypertension Encouraged low salt, wt loss t. Related to Essential (primary) hypertension will do labs. start with 2000 iu vitamin D Related to Hypovitaminosis D Reviewed appropriate med. use Re lated to Anxiety State Nos Encouraged counselling Related t o Anxiety State Nos risks and benefits of meds disc. Related to Anxiety State Nos Reviewed appr. use o f benzodiazepines Related to Anxiety State Nos NSAIDs as ordered. Related to TM J - Temporomandibular joint disorder soft foods Related to TMJ - Temporomandibular joint disorder inflammatory markers to r/o TA R elated to TMJ - Temporomandibular joint disorder Recommend calcium an d vitamin D supplementation Related to Well Person Low animal fat diet reviewed Rel ated to Other and unspecified hyperlipidemia Regular exercise encouraged Rela raymond to Other and unspecified hyperlipidemia Encouraged low salt, wt loss t. Related to Unspecified essential hypertension Encouraged regular exercise prog [place]. Related to Unspecified essential hypertension Continue same medica tions, pt ran out and encouraged to resume needs it. Related to Unspecified essential hypertension Reviewed and encoura ged exercise program Related to Well Person Counselled healthy diet Related to Well Person Reviewed [facility] protocols Related to Well Person Reviewed sxic therapy for viral URI Related to Sinusitis, Acute Nasal steroid spray Related to S inusitis, Acute augemntin, consider pred taper if no impv Related to Sinusitis, Acute Reviewed and encoura ged exercise program Related to Routine Medical Exam Counselled healthy diet Related to Routine Medical Exam Reviewed [employer] main tainence protocols Related to Routine Medical Exam Assessments Type Assessment Date No Information Patient Care Teams Name Effective Dates (start - stop) Status Members No Information
--- OUTSIDE RECORDS SUMMARY | 2025-04-03 10:00 | XMS_ITS | Encounter Summary ---
Author Organization [facility] Healthcare Address [address] [place] [address] Care Team Providers Care Food And Beverage Analyst Name Role Phone Albert Ely MD Primary Care Provider [phone] Albert Ely MD Unavailable [phone] Encounter Details Date Type Department Care Team (Latest Contact Info) Description 04/03/2025 10:00 AM CDT Pre-Admission Testing [facility] Center for Preoperative Assessment and Planning [facility] ([facility]) [address] [place] [id number] Complete tear of right rotator cuff, unspecified whether traumatic Anesthesia Record Procedure Summary Procedure Name Responsible Anesthesiologist Anesthesia Start Time Anesthesia Stop Time Right reverse shoulder arthroplasty (Right) Events No events on file. Meds * Agents No agents on file. * Blood No blood administrations on file. Lines, Drains, and Airways No LDAs on file. documented in this encounter Social History Tobacco Use Types Packs/Day Years Used Date Smoking Tobacco: Former Cigarettes 1 44.7 S tarted: 1980 Smokeless Tobacco: Never Tobacco Cessation:Counseling Given: Not Answered Comments:Down to 1 cigarette per day. Alcohol Use Standard Drinks/Week Comments Yes 1 (1 standard drink = 0.6 oz pur e alcohol) PHQ-2 Answer Date Recorded PHQ-2 Total Score (If total score is 3 or more points, staff should administer the PHQ-9) 0 12/26/2024 AUDIT-C Answer Date Recorded Q1: How often do you have a drink containing alc ohol? 2-4 times a month 04/03/2025 Q2: How many drinks containi ng alcohol do you have on a typical day when you are drinking? 1 or 2 04/03/2025 Q3: How often do you have si x or more drinks on one occasion? Never 04/03/2025 Personal Safety Answer Date Recorded Have you ever been in or are you currently in a harmful physical or emotional relationship or is someone making you feel afraid or unsafe? Denies 04/03/2025 Comments No Sex and Gender Information Value Date Recorded Sex Assigned at Not on file Legal Sex Female 1:35 PM CDT Gender Identity Not on file Sexual Orientation Not on file documented as of this encounter Last Filed Vital Signs Vital Sign Reading Time Taken Comments Blood Pressure 116/80 04/03/2025 10:28 AM CDT Pulse 70 04/03/2025 10:25 AM CDT Temperature - - Respiratory Rate 18 04/03/2025 10:25 AM CDT Oxygen Saturation 98% 04/03/2025 10:25 AM CDT Inhaled Oxygen Concentration - - Weight 93 kg (205 lb 0.4 oz) 04/03/2025 10:28 AM CDT Height 165.1 cm (5' 5) 04/03/2025 10:28 AM CDT Body Mass Index 34.12 04/03/2025 10:28 AM CDT documented in this encounter Functional Status * AUDIT-C Score Answer Date of Assessment Author 2 04/03/2025 10:25 AM CDT Lexii Pitts RN * Question Answer Date of Assessment Author Q1: How often do you have a drink containing alcohol? 2-4 times a month 04/03/2025 10:25 AM CDT Lexii Pitts RN Q2: How many drinks containing alcohol do you have on a typical day when you are drinking? 1 or 2 04/03/2025 10:25 AM IDALIAT Lexii Pitts RN Q3: How often do you have six or more drinks on one occasion? Never 04/03/2025 10:25 AM IDALIAT Lexii Pitts RN documented as of this encounter Miscellaneous Notes * Perioperative Nursing Note - Lexii Pitts RN - 04/03/2025 10:00 AM CDT Center for Preoperative Assessment and Planning Perioperative Nursing Note PAP Modalities - [facility]: CPAP Clinic at [facility] ([facility]) Date: 04/03/25 This assessment was completed with the patient. Vitals: 04/03/25 1025 04/03/25 1028 BP: 108/72 116/80 BP Location: Left arm Right arm Patient Position: Sitting Sitting Pulse: 70 Resp: 18 SpO2: 98% Weight: 93 kg (205 lb 0.4 oz) Height: 165.1 cm (5' 5) CHEST CIRCUMFERENCE: Social History Tobacco Use Smoking Status Former Current packs/day: 1.00 Average packs/day: 1 pack/day for 44.7 years (44.7 ttl pk-yrs) Types: Cigarettes Start date: 1980 Smokeless Tobacco Never Tobacco Comments Down to 1 cigarette per day. Substance and Sexual Activity Drug Use Never Alcohol Use Q1: How often do you have a drink containing alcohol?: 2-4 times a month Q2: How many drinks containing alcohol do you have on a typical day when you are drinking?: 1 or 2 Q3: How often do you have six or more drinks on one occasion?: Never Outpatient Medications Marked as Taking for the 04/03/25 encounter (Pre-Admission Testing) with [facility] CPAP NURSE Medication Sig Dispense Refill albuterol HFA (PROVENTIL HFA,VENTOLIN HFA,PROAIR HFA) 90 mcg/actuation inhaler Inhale 2 puffs every6 (six) hours as needed for wheezing 1 each 3 fluticasone furoate-vilanteroL (Breo Ellipta) 200-25 mcg/dose diskus inhaler Inhale 1 puff daily Rinse mouth with water after use. Do not swallow. 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 SKIN SCREENINGS Pain Assessment: No/denies pain STOP-Bang Total Score: 3 Jack Fall Risk Score (Retired): 0 Roland index score: 100 Have you ever been in or are you currently in a harmful physical or emotional relationship or is someone making you feel afraid or unsafe?: Denies Short Blessed Total Score: 0 Travel/Exposure Screening: Travel Screening Have you traveled outside the [place] in the last 6 months?: No Exposure Screening Have you been exposed to anyone who is sick in the last 30 days?: No Have you been exposed to or tested positive for COVID-19 within the last 10 days?: No Infectious Disease Screening Are you having any of the following:: None NUTRITION HAUSER Nutrition and Function History Questionnaire Is BMI < 20?: No Have you lost any weight in the past 6 months without trying? : No Have you eaten < 50% of normal in the past 2 weeks without trying?: No Have you experienced any of the following in the past month?: No Symptom Score: 0 Has your activity level decreased over the past 6 months or do you use an assistive device such as a walker, cane, or wheelchair?: No Total Score: 0 PATIENT CARE PLANNING Advance Directives (For Healthcare) Have you reviewed your Advance Directive and is it valid for this stay?: Not applicable Advance Directive: Patient does not have advance directive (patient stated currently working on healthcare directive) Assistive Devices/DME: Communication board, Eyeglasses (bilateral hearing aids) Discharge Planning Type of Residence: Private residence Living Arrangements: Spouse/significant other Support Systems: Spouse/significant other Patient expects to be discharged to: Private residence [employer]ICATION NO ADDITIONAL COMMENTS/ FOLLOW UP * Pre-Procedure Instructions - Joycelyn Snyder MD - 04/03/2025 10:00 AM CDT Center for Preoperative Assessment and Planning Preoperative Evaluation Record Evaluation type/location: CPAP [facility] Planned procedure site: [facility]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 The morning of your surgery: * You may have clear liquids on your surgery day. You must stop drinking two hours before you arrive to the surgery facility. Acceptable clear liquids include water, clear sports drinks, black coffee, tea, or clear soda. DO NOT drink any milk, creamer, or alcohol. * Your surgeon's office may have provided additional instructions or restrictions. Please follow those instructions. * You may brush your teeth and rinse your mouth out. * Do not glue your dentures. * Do not wear jewelry, body piercings, makeup, hairpins, false eyelashes or contact lenses to the hospital. * Leave any valuables at home or with your family. * If having surgery at [facility], you may want to bring a credit card if you want to use our Mobile Pharmacy for your discharge medications. Mobile pharmacy is not available at [facility], the [facility]opedic Center, or the [place] for [facility]. Outpatient Surgery: * You must have a responsible adult drive you home and stay with you for 24 hours after your surgery * You cannot be alone at home or in a hotel * Please call your surgeon's office if you do not have someone to drive you home and/or stay with you after surgery * Please bring any items you may need to spend the night in the hospital. Sometimes patients need to be cared for in the hospital overnight. If you are a smoker: * You should prepare for your surgery and recovery well ahead of time. Stop smoking at least 2 weeks before surgery to help prevent infection and help your body recover faster. Ask your surgeon for tools to help you quit or call 0-306-BWAFHCJ ( ). Visit Smokefree.gov for more information. * Do not smoke during the 24 hours before surgery. Instructions For Your Medications: Pre-Surgery Instructions: Medication Instructions albuterol 2.5 mg /3 mL (0.083 %) nebulizer solution Take on day of surgery if needed albuterol HFA (PROVENTIL HFA,VENTOLIN HFA,PROAIR HFA) 90 mcg/actuation inhaler Take on day of surgery if needed ALPRAZolam (XANAX) 0.5 mg tablet Take on day of surgery if needed Cosentyx UnoReady Pen 300 mg/2 mL (150 mg/mL) pen injector subcutaneous syringe To be discussed cyclobenzaprine (FLEXERIL) 10 mg tablet Take on day of surgery if needed fluticasone furoate-vilanteroL (Breo Ellipta) 200-25 mcg/dose diskus inhaler Take morning of surgery gabapentin (NEURONTIN) 300 mg capsule Take on day of surgery if needed ibuprofen (ADVIL,MOTRIN) 800 mg tablet Per surgeon's instructions latanoprost (XALATAN) 0.005 % ophthalmic solution Take morning of surgery rosuvastatin (CRESTOR) 5 mg tablet Take morning of surgery General Instructions For Medications: * Stop all of these medications 7 days prior to your surgery: excedrin, motrin, advil, ibuprofen, aleve, naproxen, meloxicam For medications that you are instructed to take on the morning of surgery, take the medications with a few sips of water. Stop all of these medications 7-14 days prior to your surgery: Vitamin E, Herbal medicines, Diet Pills If you take aspirin, do not stop taking it unless you were instructed to do so. If you use inhalers, please bring them with you on the day of your procedure. If you have pain, you may take tylenol (acetaminophen). Do not take more than 6 tablets or 3000 mg (3 g) within a 24 period. Call your surgeon and the CPAP clinic if any of the following happens before surgery: Any changes in your health You have a fever You have any signs of an infection (chest, urinary tract or tooth) You have been to the Emergency Room or were in the hospital You have started taking any new medications If laboratory testing was completed during your visit, we will only contact you regarding any results that require you to take additional action prior to your planned procedure. * Pre-Procedure Instructions - Lexii Pitts RN - 04/03/2025 10:00 AM CDT CENTER FOR PREOPERATIVE ASSESSMENT AND PLANNING (CPAP) PRE-SURGICAL NURSING INSTRUCTIONS Clinic Assessment These instructions were completed with the patient. General Information Discussed with Patient: Surgery location provided to patient. Arrival time and surgical time will be provided to the patient by their surgeon. You should wear clothing that is clean, loose, comfortable and easy to get in and out of on the dayof surgery. Remove nail coverings, artificial nails and nail namibian prior to the day of surgery. This is to lower your risk of infection and to allow the day of surgery team to monitor your oxygen levels. You should leave your valuables and any jewelry at home. No metal or piercings are allowed in the operating room. You should bring your insurance card, a photo ID (example: Middle Card Tender's License) and a method of payment for any insurance copay, deductible or copay for discharge medications. You should bring a complete, up-to-date, list of all your medications on the day of surgery, including any over the counter medications or supplements you may take. Please note on your medication list, the last date & time you took each medication. The healthcare team, on the day of surgery, will ask for this information. You should bring your Advanced Directive and/or Living Will with you on the day of surgery if you have not verified a copy is already in your Epic Chart. If you are having surgery at [facility], please arrive on the day of surgery with the name and phone number of your local 24 hour pharmacy. Due to evening discharges, your routine pharmacy may be closed. In order to obtain your prescriptions that evening, your surgeon may need to send prescriptions to this pharmacy or have you take prescriptions to this pharmacy when you are discharged. Without this information, you may not be able to obtain your prescriptions that evening. PREVENTING INFECTION (DECOLONIZATION): Decolonization is the use of a topical antiseptic soap and sometimes a nasal ointment to remove bacteria (germs) from the skin's surface. Antiseptic soap: Chlorhexidine gluconate or CHG (brand name: Hibiclens??) Before surgery, your entire body must be thoroughly cleaned. CHG helps to reduce the bacteria on your skin. You may be given one or more bottles of CHG or you may be asked to obtain from your preferred pharmacy. Be sure to ask your pharmacist if you need help finding this product. Nasal ointment: Mupirocin (brand name: Bactroban)- This will only be ordered for the 5 Day Bathing Protocol. Your surgeon may also prescribe a topical ointment that is rubbed inside each of the nostrils to reduce the bacteria in your nose. Mupirocin ointment requires a prescription. If needed, it will be prescribed by your surgeon and obtained from your preferred pharmacy. SHOWERING WITH ANTISEPTIC SOAP (CHG) What You Need For Each Shower 60 mL (?? cup) of CHG 2 clean washcloths Below is the Pre-Surgical Bathing Protocol you should follow for your surgery. If your surgeon provides you different bathing instructions, please follow your surgeon's orders. 2 Day CHG Bathing Protocol (no nasal ointment) The Pre-Surgical Bathing instructions were discussed with the patient. Patient provided detailed scrub instructions via A Guide for Patients Having Surgery: Your Pathway to Excellent Care, pages 7-10. Patients may also access the guide via the web link: [email or web address]. Patient stated understanding of the bathing instructions. Other Important Handouts/Education Discussed with Patient: ---Guide for Patients Having Surgery: Your Pathway to Excellent Care. Reviewed and provided writtendocument to patient. Patient stated understanding. No follow up needed. ---Nutrition Education Handout, Fuel Up For Surgery. Reviewed and provided written document to patient. Patient stated understanding. No follow up needed. ---Advanced Directive. Reviewed and provided written document to patient. Patient stated understanding. No follow up needed. All patients should read below section: Information on [facility] & the [facility]: Please view [email or web address] (Patient & Visitor Information) for additional details regarding Advanced Directive forms, AWARE, directions, parking information, lodging, Internet access, dining and more. Information on [facility] or [facility] [place] ([facility]): Please view [email or web address] (Patient and Visitor Information) for parking, directions, lodging and more. For MyChart information, to activate account or password recovery, please go to [email or web address] or call [phone] (toll-free: [phone]), Wed- Wednesday 8am-5pm. Information for Suicide Prevention: National Suicide Prevention Lifeline (4-564-375-TALK (0084)) orcall or text 217. Chat resources: Aut[employer] Response.org. Day of Surgery Arrival Times: For patients having surgery @ [facility] ([facility]), you will be notified of your day of surgery arrival time by either the [facility] Pre-Op OR team or your surgeon's office. If you have not been notified by 1pm THE BUSINESS DAY BEFORE your surgery, please call your surgeon's office Austin Morris MD . You may also call [phone] and ask for your surgeon's office. For patients having surgery @ [facility], if you have not been notified of your surgery time by 4pm THE BUSINESS DAY BEFORE surgery, please contact your surgeon's office for day of surgery arrival time Austin Morris MD . You may also call [phone] and ask for your surgeon's office. For patients having surgery at [facility], if you have notbeen notified of your surgery time by 4pm THE BUSINESS DAY BEFORE your surgery, please contact yoursurgeon's office for day of surgery arrival time Austin Morris MD . You may also call [phone] and ask for your surgeon's office. For patients having surgery @ [facility] ([facility]), you will be notified of your day of surgery arrival time by either the [facility] Pre-Op OR team or your surgeon's office. For patients having Ears/Nose Throat Surgery, Urology Surgery or Neuro Spine Surgery, the [facility] Pre-Op Team will contact you by 4pm THE BUSINESS DAY BEFORE surgery. For all other [facility] surgeries, if you have not been notified of your surgery time by 2pm THE BUSINESS DAY BEFORE your surgery, please call your surgeon's office Austin Morris MD . They will be able to direct you to who will provide your surgery time. You may also call the surgery center at [phone] and ask for your surgeon's office. For patients having [facility] @ [facility], if your surgeon's office or the surgery centerhas not notified you of your surgery time by 3pm THE BUSINESS DAY BEFORE your surgery, please call the surgery center at [phone]. The Center for Preoperative Assessment & Planning (CPAP) does not provide arrival times for theday of surgery or provide the duration of surgery. This information is provided by your surgeon's office or by the center where you are having surgery. We appreciate your understanding. documented in this encounter Plan of Treatment Upcoming Encounters Date Type Department Care Team (Latest Contact Info) Description 04/19/2025 10:10 AM CDT Hospital Encounter [facility] Operating Room [address] [place] [address] Austin Morris MD [address] [facility] [place], [place] [id number] 04/19/2025 10:10 AM CDT Anesthesia Event [facility] Operating Room [address] [place] [address] Joycelyn Snyder MD [address] [facility] [place] [id number] 04/19/2025 10:10 AM CDT - 04/19/2025 12:50 PM CDT Surgery [facility] Operating Room [address] [place] [address] Austin Morris MD [address] [facility] [place] [address] Right reverse shoulder arthroplasty 11/05/2025 10:00 AM CDT Hospital Encounter [address] [address] Myron Pena, DO [address] [place] [address] 11/05/2025 10:00 AM CDT - 11/05/2025 10:30 AM CDT Surgery [address] [address] Myron Pena DO [address] [place] [address] COLONOSCOPY Scheduled Procedures Name Priority Associated Diagnoses Date/Ti me ARTHROPLASTY SHOULDER - REVE RSE TOTAL Complete tear of right rotator cuff, unspecified whether traumatic 04/19/2025 10:10 AM CDT COLONOSCOPY History of colonic polyps Abnormal finding on GI tract imaging 11/05/2025 10:00 AM CDT ESOPHAGOGASTRODUODENOSCOPY History of colonic polyps Abnormal finding on GI tract imaging 11/05/2025 10:00 AM CDT documented as of this encounter Goals Goal Patient Goal Type Associated Problems Recent Progress Patient-Stated? Author Autogenera raymond Goal Care Plan Autogenerated Problem No Wilfred Ghotra RN documented as of this encounter Procedures Procedure Name Priority Date/Time Associated Diagnosis Comments EGFR Routine 04/03/2025 11:12 AM CDT Complete tear of right rotator cuff, unspecified whether traumatic COMPREHENSIVE METABOLIC PANEL Routine 04/03/2025 11:12 AM CDT Complete tear of right rotator cuff, unspecified whether traumatic documented in this encounter Results * eGFR (04/03/2025 11:12 AM CDT) eGFR >90 >=60 mL/min/1. 73 m2 Comment: Interpretive Data Reference Interval Normal >/= 90 mL/min/1.73m2 Mildly decreased* 60 - 89 mL/min/1.73m2 Mildly to moderately decreased 45 - 59 mL/min/1.73m2 Moderately to severely decreased 30 - 44 mL/min/1.73m2 Severely decreased 15 - 29 mL/min/1.73m2 Kidney Failure < 15 mL/min/1.73m2 *Relative to young adult level Estimated glomerular filtration rate is determined by the 2020 CKD-EPI equation recommended by the National Kidney Foundation (A Unifying Approach to GFR Estimation: Recommendations of the NKF-ASK Task Force on Reassessing the Inclusion of Race in Diagnosing Kidney Disease, JASN 2020). The CKD-EPI equation should not be used for patients with unstable renal function and has not been validated in children and those over 70. Current interpretive data was last reviewed 2021. Blood 04/03/2025 11:1 2 AM CDT 04/03/2025 12:25 PM CDT us Austin Morris MD LAB BLOOD ORDERABLES Final Result [facility] [place] [address] * Comprehensive metabolic panel (04/03/2025 11:12 AM CDT) Sodium 145 135 - 145 mmol/L Potassium, pl 4.6 3.3 - 4.9 mmol/L [facility] Chloride 110 97 - 110 mmol/L [facility] CO2 28 22 - 32 mmol/L [facility] Anion gap 7 2 - 15 mmol/L [facility] BUN 16 6 - 25 mg/dL [facility] Creatinine 0.72 0.60 - 1.10 mg/dL [facility] Glucose 70 70 - 199 mg/dL [facility] Comment: Interpretive Data Fasting glucose >/= 126 mg/dl is diagnostic for diabetes. Fasting is defined as no caloric intake for at least 8 hours. Fasting glucose between 100 mg/dl to 125 mg/dl is diagnostic of prediabetes. In a patient with classic symptoms of hyperglycemia or hyperglycemic crisis, a random glucose >/= 200 mg/dl is diagnostic for diabetes. In the absence of unequivocal hyperglycemia, results should be confirmed by repeat testing. The classification and Diagnosis of Diabetes Diabetes Care 2021; 46: S19-S40. Current interpretive data was last revised 2022. Calcium 9.7 8.5 - 10.3 mg/dL [facility] Bilirubin, total 0.5 0.1 - 1.2 mg/dL [facility] Protein, pl 7.1 6.5 - 8.5 g/dL [facility] Albumin 4.0 3.5 - 5.0 g/dL [facility] Alk phos 93 40 - 130 Units/L [facility] ALT 13 7 - 45 Units/L [facility] AST 14 10 - 45 Units/L [facility] Blood 04/03/2025 11:1 2 AM CDT 04/03/2025 12:25 PM CDT Austin oMrris MD LAB BLOOD ORDERABLES Final Result [facility] Department [place] [address] documented in this encounter Visit Diagnoses Diagnosis Abnormal finding on GI tract imaging- Primary History of colonic polyps Personal history of colonic polyps Encounter for screening colonoscopy Complete tear of right rotator cuff- Primary Complete tear of right rotator cuff, unspecified whether traumatic Complete tear of right rotator cuff, unspecified whether traumatic History of colonic polyps Personal history of colonic polyps Abnormal finding on GI tract imaging documented in this encounter Discontinued Medications Medication Sig Discontinue Reason Start Date End Da te rosuvastatin (CRESTOR) 5 mg tabletIndications:Pure hypercholesterolemia Take 1 tablet (5 mg total) by mouth daily Error 12/28/2024 04/03/2025 documented as of this encounter Historical Medications * This list may reflect changes made after this encounter. 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 NOT IN DATABASE, PRESCRIPTION,Ind ications:cholest max Take 1 capsule by mouth 2 (two) times a day Drug name: Cholesterol with red rice flour with 350 mg Fish Oil Dose: 3600 mg Route: oral Frequency: bid amoxicillin 500 mg capsule TAKE 4 CAPSULES 1 HOUR BEFORE APPOINTMENT 01/03/2025 added in this encounter Additional Health Concerns Active Problems Noted Date Diagnosed Date Autogenerated Problem 01/31/2025 documented as of this encounter Care Teams Food And Beverage Analyst Relationship Specialty Start Date End Date Albert Ely MD [address] [place] [address] PCP - General Family Medicine 05/25/23 Albert Ely MD [address] [place] [address] Family Medicine 05/25/23 documented as of this encounter
--- OUTSIDE RECORDS SUMMARY | 2025-04-03 11:21 | XMS_ITS | Encounter Summary ---
Author Organization [facility] Healthcare Address [address] [place] [address] Care Team Providers Care Sde Name Role Phone Albert Ely MD Primary Care Provider [phone] Albert Ely MD Unavailable [phone] Reason for Referral * MRI/CAT/PET Scan (Routine) - Closed Specialty Diagnoses / Procedures Referred By Contac t Referred To Contact Radiology Diagnoses Arthritis of right shoulder Procedures CT Shoulder Right WO Contrast Austin Morris MD [address] [facility] [place] [address] Phone: tel: fax: [address] [phone] Referral ID Status Reason Start Date Expiration Date Visits Re quested Visits Authorized [id number] Closed 02/08/2025 03/10/2026 1 1 Reason for Visit * MRI/CAT/PET Scan (Routine) - Closed Specialty Diagnoses / Procedures Referred By Contac t Referred To Contact Radiology Diagnoses Arthritis of right shoulder Procedures CT Shoulder Right WO Contrast Austin Morris MD [address] [facility] [place] [address] Phone: tel: fax: [facility] [address] [facility] [place] [address] Referral ID Status Reason Start Date Expiration Date Visits Re quested Visits Authorized [id number] Closed 02/08/2025 03/10/2026 1 1 Encounter Details Date Type Department Care Team (Latest Contact Info) Description 04/03/2025 11:21 AM CDT - 04/03/2025 11:59 PM CDT Hospital Encounter [facility] [address] [place] [address] Austin Morris MD [address] [facility] [address] [place] [address] Arthritis of right shoulder Discharge Disposition: Discharge to home or self care Social History Tobacco Use Types Packs/Day Years Used Date Smoking Tobacco: Former Cigarettes 1 44.7 S tarted: 1980 Smokeless Tobacco: Never Comments:Down to 1 cigarette per day. Alcohol [...] on file documented as of this encounter Functional Status * AUDIT-C Score Answer Date of Assessment Author 2 04/03/2025 10:25 AM CDT Gisselle, Lexii L., RN * Question Answer Date of Assessment Author Q1: How often do you have a drink containing alcohol? 2-4 times a month 04/03/2025 10:25 AM Lexii Lyon RN Q2: How many drinks containing alcohol do you have on a typical day when you are drinking? 1 or 2 04/03/2025 10:25 AM Lexii Lyon RN Q3: How often do you have six or more drinks on one occasion? Never 04/03/2025 10:25 AM Lexii Lyon RN documented as of this encounter Medications at Time of Discharge albuterol 2.5 mg /3 mL (0.083 %) nebulizer solution Take 3 mL (2.5 mg total) by nebulization every 6 (six) hours as needed for wheezing albuterol HFA (PROVENTIL HFA,VENTOLIN HFA,PROAIR HFA) 90 mcg/actuation inhalerIndication s:Simple chronic bronchitis (HCC) Inhale 2 puffs every 6 (six) hours as needed for wheezing 1 each 3 12/26/2024 ALPRAZolam (XANAX) 0.5 mg tablet Take 1 tablet (0.5 mg total) by mouth daily as needed for anxiety 30 tablet 1 08/03/2023 amoxicillin 500 mg capsule TAKE 4 CAPSULES 1 HOUR BEFORE APPOINTMENT 01/03/2025 Cosentyx UnoReady Pen 300 mg/2 mL (150 mg/mL) pen injector subcutaneous syringeIndication s:next dose due 06/02/2025 Inject 2 mL (300 mg total) under the skin every 4 (four) weeks 02/08/2024 fluticasone furoate-vilantero L (Breo Ellipta) 200-25 mcg/dose diskus inhalerIndication s:Simple chronic bronchitis (HCC) Inhale 1 puff daily Rinse mouth with water after use. Do not swallow. 60 each 3 12/26/2024 gabapentin (NEURONTIN) 300 mg capsuleIndication s:Neuropathic Pain Take 1 capsule (300 mg total) by mouth 3 (three) times a day ibuprofen (ADVIL,MOTRIN) 800 mg tablet Take 1 tablet (800 mg total) by mouth every 8 (eight) hours as needed for pain (Take with food) 90 tablet 3 01/25/2024 latanoprost (XALATAN) 0.005 % ophthalmic solutionIndicatio ns:open angle glaucoma Administer 1 drop into both eyes nightly 10/05/2024 multivit with min-folic acid 120 mcg tablet,chewableIn dications:Vitamin Deficiency Prevention Take 2 tablet/chew tab by mouth physician ophthalmologist before breakfast NOT IN DATABASE, PRESCRIPTION,Genia cations:cholester ol Take 1 capsule by mouth 2 (two) times a day Drug name: Cholesterol with red rice flour with 350 mg Fish Oil Dose: 3600 mg Route: oral Frequency: bid documented as of this encounter Discharge Disposition Disposition Code Departure Means Destination Discharge to home or self care documented in this encounter Plan of Treatment Upcoming Encounters Date Type Department Care Team (Latest Contact Info) Description 04/19/2025 10:10 AM CDT Hospital Encounter [facility] [address] [place] [address] Austin Morris MD [address] [facility] [address] 04/19/2025 10:10 AM CDT Anesthesia Event [facility] [address] [place] [address] Joycelyn Snyder MD [address] [phone] 04/19/2025 10:10 AM CDT - 04/19/2025 12:[address] [facility] [address] [place] [address] Austin Morris MD [address] [facility] [place] [address] Right reverse shoulder arthroplasty 11/05/2025 10:00 AM CDT Hospital Encounter [facility] [address] [place] [address] Myron Pena, DO [address] [facility] [address] [place] [address] 11/05/2025 10:00 AM CDT - 11/05/2025 10:30 AM CDT Surgery [facility] [address] [place] [address] Myron Pena, DO [address] [facility] [address] [place] [address] COLONOSCOPY Scheduled Procedures Name Priority Associated Diagnoses [...] Procedure Name Priority Date/Time Associated Diagnosis Comments CT SHOULDER RIGHT WO CONTRAST Schedule Routine, Read Routine (OP Routine) 04/03/2025 12:07 PM CDT Arthritis of right shoulder documented in this encounter Results * CT Shoulder Right WO Contrast (04/03/2025 12:07 PM CDT) Anatomical Region Laterality Modality Upper Extremities Right Computed Tomog damon 04/03/2025 12:5 4 PM CDT Impressions 04/03/2025 12:54 PM CDT 1. Preoperative planning CT demonstrates moderate right rotator cuff tear arthropathy with normal glenoid bone stock and minimal retroversion. Electronically signed by: Carmine Emmanuel M.D. Narrative 04/03/2025 12:54 PM CDT EXAMINATION: CT SHOULDER RIGHT WO CONTRAST HISTORY: Right shoulder pain FINDINGS: Noncontrast CT examination of the right shoulder is compared with studies from 10/25/2024 and 11/13/2024. There is unchanged acromioplasty, distal clavicle excision, and rotator cuff repair. There is moderate glenohumeral osteoarthritis related to rotator cuff tear arthropathy. Glenoid bone stock is normal at the coracoid base and there is 5 degrees retroversion at the equator. There is moderate central subscapularis muscle atrophy. 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 No acute fracture is present. There is mild paraseptal emphysema in the right lung apex. Procedure Note Carmine Emmanuel MD - 04/03/2025 EXAMINATION: CT SHOULDER RIGHT WO CONTRAST HISTORY: Right shoulder pain FINDINGS: Noncontrast CT examination of the right shoulder is compared with studies from 10/25/2024 and 11/13/2024. There is unchanged acromioplasty, distal clavicle excision, and rotator cuff repair. There is moderate glenohumeral osteoarthritis related to rotator cuff tear arthropathy. Glenoid bone stock is normal at the coracoid base and there is 5 degrees retroversion at the equator. There is moderate central subscapularis muscle atrophy. 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 No acute fracture is present. There is mild paraseptal emphysema in the right lung apex. IMPRESSION: 1. Preoperative planning CT demonstrates moderate right rotator cuff tear arthropathy with normal glenoid bone stock and minimal retroversion. Electronically signed by: Carmine Emmanuel M.D. Austin Morris MD IMG CT PROCEDURES Final Re sult documented in this encounter Visit Diagnoses Diagnosis Abnormal finding on GI tract imaging- Primary History of colonic polyps Personal history of colonic polyps Encounter for screening colonoscopy Complete tear of right rotator cuff- Primary Arthritis of right shoulder Complete tear of right rotator cuff, unspecified whether traumatic History of colonic polyps Personal history of colonic polyps Abnormal finding on GI tract imaging documented in this encounter Additional Health Concerns Active Problems Noted Date Diagnosed Date Autogenerated Problem 01/31/2025 documented as of this encounter Care Teams Sde Relationship Specialty Start Date End Date Albert Ely MD [address] [place] [address] PCP - General Family Medicine 05/25/23 Albert Ely MD [address] [place] [address] Family Medicine 05/25/23 documented as of this encounter
--- OUTSIDE RECORDS SUMMARY | 2025-04-04 11:00 | XMS_ITS | Clinical Summary ---
Author Organization [facility] [address] Address [address] [place] [id number] Care Team Providers Care Manager Editorial Name Role Phone Albert Ely MD Primary Care Provider [phone] Albert Ely MD Unavailable [phone] Allergies Active Allergy Reactions Criticality Noted Date Comments Bupropion Hives Medium 05/25/2023 Cephalexin Hives Medium 05/25/2023 Codeine Vomiting Low 04/26/2023 Codeine Other (See comments) Low 05/25/2023 GI problems Prednisone Other (See comments) Low 05/25/2023 Psoriasis rebound Rosuvastatin Other (See comments) Low 04/03/2025 Abdominal pain, blood in urine Medications gabapentin (NEURONTIN) 300 mg capsuleIndications:Varsha ropathic Pain Take 1 capsule (300 mg total) by mouth 3 (three) times a day Active albuterol 2.5 mg /3 mL (0.083 %) nebulizer solution Take 3 mL (2.5 mg total) by nebulization every 6 (six) hours as needed for wheezing Active ALPRAZolam (XANAX) 0.5 mg tablet Take 1 tablet (0.5 mg total) by mouth daily as needed for anxiety 30 tablet 1 024 Active ibuprofen (ADVIL,MOTRIN) 800 mg tablet Take 1 tablet (800 mg total) by mouth every 8 (eight) hours as needed for pain (Take with food) 90 tablet 3 Active Cosentyx UnoReady Pen 300 mg/2 mL (150 mg/mL) pen injector subcutaneous syringeIndications:nex t dose due 06/02/2025 Inject 2 mL (300 mg total) under the skin every 4 (four) weeks Active cyclobenzaprine (FLEXERIL) 10 mg tablet Take 1 tablet (10 mg total) by mouth 3 (three) times a day as needed for muscle spasms 30 tablet 3 Active latanoprost (XALATAN) 0.005 % ophthalmic solutionIndications:op en angle glaucoma Administer 1 drop into both eyes nightly Active albuterol HFA (PROVENTIL HFA,VENTOLIN HFA,PROAIR HFA) 90 mcg/actuation inhalerIndications:Sim ple chronic bronchitis (HCC) Inhale 2 puffs every 6 (six) hours as needed for wheezing 1 each 3 Active fluticasone furoate-vilanteroL (Breo Ellipta) 200-25 mcg/dose diskus inhalerIndications:Sim ple chronic bronchitis (HCC) Inhale 1 puff daily Rinse mouth with water after use. Do not swallow. 60 each 3 Active Additional Information Patient taking differently:1 puff inhalationDaily (early AM), Rinse mouth with water after use. 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 Encouraged to push p.o. water intake. Consider referral to Urology for hematuria to rule out bladder cancer. She is in agreement with plan and states understanding. Pure hypercholesterolemia 12/26/2024 Assessment & Plan (01/01/2025 12:57 PM CDT): Stopped atorvastatin due to concerns for side effects. Will continue with lifestyle modifications. Will recheck lipid panel at next follow-up. Assessment & Plan (12/26/2024 2:53 PM CDT): Reviewed ascvd risk, 6.3%. Patient with sig family history of heart disease. Discussed indication to start cholesterol-lowering medication, patient is agreeable. Will complete labs after her appointment today, after review of labs will send in appropriate lipid lowering medication. Encouraged healthy diet and regular exercise. Encounter for annual wellness exam in Medicare p atient 12/26/2024 Assessment & Plan (12/26/2024 2:50 PM CDT): Preventative exam; reviewed screenings and vaccinations. Patient has order for CT lung cancer screening, aware to call and schedule this. Updated referral to GI for screening colonoscopy. Reviewed advanced directive and medical living will. Simple chronic bronchitis 12/26/2024 Assessment & Plan (12/26/2024 2:54 PM CDT): Denies any recent exacerbations. Continue Breo 1 puff daily, refilled today. Infrequent use of albuterol inhaler however state that she needs an updated Rx, refilled albuterol today. Acute bilateral low back pain with bilateral sci atica 02/21/2024 Assessment & Plan (02/24/2024 8:31 AM CDT): New; no injury. Patient does have a history of lumbar spinal fusion.Recommended continuation of ibuprofen 800 mg 2-3 times per day with food for the next 1-2 weeks. Will check x-ray. Discussed benefits of physical therapy, patient is agreeable to PT referral for further evaluation and treatment. She denies any bowel/bladder disturbances. Prescribed Flexeril p.r.n. and will continue to monitor. Medicare annual wellness visit, subsequent 01/24 Assessment & Plan (01/25/2024 10:24 AM CDT): Focus of exam is preventative in nature. Reviewed immunizations, reivewed sun/skin cancer screening. Reviwed colon cancer screening . Reviewed breast and lung cancer screening surveillance. WIll follow response. Psoriasis 01/25/2024 Assessment & Plan (01/25/2024 10:24 AM CDT): COntinue on cosentyx and will follow with dermatology and will monitor response. BARBARA (generalized anxiety disorder) 01/25/2024 Assessment & Plan (01/25/2024 10:24 AM CDT): Sparing use of prn alprazolam. WIll follow response. Moderate persistent asthma 01/25/2024 Assessment & Plan (01/25/2024 10:25 AM CDT): Stable on albuterol/budesonide and prn albutgerol with nebulizer. WIll continue to follow response. Personal history of nicotine dependence 01/25/20 Assessment & Plan (12/26/2024 2:51 PM CDT): Patient with 1.5 ppd x 40 years. Quit smoking for 6 months, started smoking again. Currently not smoking, quit 2 weeks ago. Congratulated on smoking cessation efforts. Recommended use of nicotine replacement products if cravings returned. She currently states that chewing gum and sucking on hard candy has been helpful. Assessment & Plan (01/25/2024 10:25 AM CDT): COngratualte on continued cessation. Class 2 severe obesity due t o excess calories with serious comorbidity and body mass index (BMI) of 36.0 to 36.9 in adult 01/25/2024 Assessment & Plan (12/26/2024 2:49 PM CDT): Encouraged healthy diet and regular exercise. Assessment & Plan (02/24/2024 8:32 AM CDT): Encouraged healthy diet and regular exercise. Assessment & Plan (01/25/2024 10:25 AM CDT): Encourage 150min/week aerobic exercise. Healthy food chocies. WIll follow response. BMI 35.0-35.9,adult 01/25/2024 Preoperative examination 08/03/2023 Encounters Date Type Department Care Team Description 04/03/2025 11:21 AM CDT - 04/03/2025 11:59 PM CDT Hospital Encounter [facility] [place] [facility] ([facility]) [address] [place] [phone] Austin Morris MD Arthritis of right shoulder Discharge Disposition: Discharge to home or self care 04/03/2025 10:00 AM CDT Pre-Admission Testing [facility] Center for Preoperative Assessment and Planning [facility] ([facility]) [address] [place] [phone] Complete tear of right rotator cuff, unspecified whether traumatic 02/08/2025 Orders Only [facility] [address] [place] [address] Advanced Medicine 12th [place] [address] [place] [address] Austin Morris MD Arthritis of right shoulder (Primary Dx) 01/29/2025 Results [facility] [address] [address] Breanne Tirado, NELDA MRI Abdomen Liver W WO Contrast 01/12/2025 10:14 AM CDT - 01/12/2025 11:59 PM CDT Hospital Encounter [facility] [address] [place] [address] Hepatic hemangioma Discharge Disposition: Discharge to home or self care 01/04/2025 Telephone [facility] [address] [address] Breanne Tirado, [employer]BER Request For Order(s) 01/03/2025 Telephone [facility] at [address] [place] [address] Myron Pena, DO 01/02/2025 Results [facility]-Up [facility] [address] [address] Breanne Tirado, F[employer] MEMBER CT KUB Stone WO Contrast, Comprehensive metabolic panel, CBC with auto differential, Additional followed-up results: 2 01/02/2025 Orders Only [facility] [address] [address] Breanne Tirado, [employer] Hepatic hemangioma (Primary Dx) from Last 3 Months Immunizations Immunization Administration Dates Next Due Influenza, Trivalent, Adjuva nted, Intramuscular 05/02/2023(Deferred: Patient Refused) Influenza, Trivalent, IM (MDV) 05/02/2024(Deferr ed: Patient Refused) Influenza, Unspecified 02/21/2024(Deferr ed: Patient Refused),08/02/2023(Deferred: Patient Refused),05/25/2023(Deferred: Patient Refused),05/25/2023(Deferred: Patient Refused),05/02/2023(Deferred: Patient Refused),08/02/2022(Deferred: Patient Refused),05/29/2022,05/29/2022, 021,05/13/2020,07/14/2019,05/30/2018,0 04/28/2016,04/29/2015,07/14/2012 Pfizer SARS-CoV-2 Monovalent Vaccination (12+ Yrs) PURPLE 09/18/2021,12/12/2020,11/21/2020 Pneumococcal Conjugate PCV 13 04/28/2016 Pneumococcal Conjugate Pcv20 10/30/2022 Td, Unspecified 08/30/2019 Tdap 12/06/2008 ZOSTER Recombinant 02/24/2018,11/24/2017 Surgical History Surgery Date Site/Laterality Comments LUMBAR FUSION L4 L5 S1 BOWEL RESECTION 08/02/2001 - 08/01/2002 SHOULDER SURGERY 08/02/2000 - 08/01/2001 KNEE ARTHROCENTESIS 08/02/2017 - 08/01/2018 Right HYSTERECTOMY JOINT REPLACEMENT 2023 SPINE SURGERY 30 years KNEE ARTHROSCOPY W/ LATERAL RELEASE 8 to 9 years Medical History Medical History Date Comments Psoriasis Diverticulosis Asthma 1998 Anxiety 2000 Family History Medical History Relation Name Comments Heart attack Father Heart disease Father Alcohol abuse Mother Cancer Mother Breast cancer Mother's Sister Heart attack Sister Heart disease Sister Relation Name Status Comments Father Mother Mother's Sister Sister Social History Tobacco Use Types Packs/Day Years [...] on file Sexual Orientation Not on file Obstetrics History Para Term AB IAB SAB Ectopic Multiple Livin g Live Births 2 1 1 Date Outcome GA Total Labor Labor/2nd/3rd Weight Sex Type Anes PTL Nicole A1 A5 Name Clin Term Last Filed Vital Signs Vital Sign Reading Time Taken Comments Blood Pressure 116/80 04/03/2025 10:28 AM CDT Pulse 70 04/03/2025 10:25 AM CDT Temperature 36.8 C (98.2 F) 01/01/2025 11:27 AM CDT Respiratory Rate 18 04/03/2025 10:25 AM CDT Oxygen Saturation 98% 04/03/2025 10:25 AM CDT Inhaled Oxygen Concentration - - Weight 93 kg (205 lb 0.4 oz) 04/03/2025 10:28 AM CDT Height 165.1 cm (5' 5) 04/03/2025 10:28 AM CDT Body Mass Index 34.12 04/03/2025 10:28 AM CDT Plan of Treatment Upcoming Encounters Date Type Department Care Team (Latest Contact Info) Description 04/19/2025 10:10 AM CDT Hospital Encounter [facility] Operating Room [address] [place] [address] Austin Morris MD [address] [facility] [place] [address] 04/19/2025 10:10 AM CDT Anesthesia Event [facility] Operating Room [address] [place] [address] Joycelyn Snyder MD [address] [phone] 04/19/2025 10:10 AM CDT - 04/19/2025 12:50 PM CDT Surgery [facility] Operating Room [address] [place] [address] Austin Morris MD [address] [facility] [place] [address] Right reverse shoulder arthroplasty 11/05/2025 10:00 AM CDT Hospital Encounter [address] [address] Myron Pena DO [address] [place] [address] 11/05/2025 10:00 AM CDT - 11/05/2025 10:30 AM CDT Surgery [address] [place] [address] Myron Pena, DO [address] [facility] [place] [address] COLONOSCOPY Scheduled Procedures Name Priority Associated Diagnoses Date/Ti me ARTHROPLASTY SHOULDER - REVE RSE TOTAL Complete tear of right rotator cuff, unspecified whether traumatic 04/19/2025 10:10 AM CDT COLONOSCOPY History of colonic polyps Abnormal finding on GI tract imaging 11/05/2025 10:00 AM CDT ESOPHAGOGASTRODUODENOSCOPY History of colonic polyps Abnormal finding on GI tract imaging 11/05/2025 10:00 AM CDT Health Maintenance Due Date Last Done Comments Colon Cancer Screening-Colonoscopy 1955 Hepatitis C Screening 1957 Hepatitis B Screening 1975 Abdominal Aortic Aneurysm (A AA) Screen 2022 Lung Cancer Screening 07/14/2024 07/14/2023 Covid-19 Vaccine (2024-09 6 season) 2025 09/18/2021, 12/12/2020, 11/21/2020 Influenza Vaccine (#1) 2025 , 05/29/2022, 04/30/2021, Additional history exists Breast Cancer Screening-Mammogram 07/05/2025 024, 07/09/2023 Osteoporosis Screening-Bone Density Scan 07/14/2025 07/14/2023 Depression Screening 12/26/2025 12/26/2024, 02/21/2024, 01/25/2024, Additional history exists Well Visit 65+ 12/26/2025 12/26/2024, 01/25/2024 Fall Risk Assessment 04/03/2026 04/03/2025, 01/01/2025, 12/26/2024, Additional history exists DTaP/Tdap/Td Vaccine (3 - Td or Tdap) 08/30/2029 08/30/2019, 12/06/2008 Zoster Vaccine Completed 02/24/2018, 11/24/2017 Pneumococcal vaccine 65+ Completed 10/30/2022, 04/03 Goals Goal Patient Goal Type Associated Problems Recent Progress Patient-Stated? Author Autogenera raymond Goal Care Plan Autogenerated Problem No Wilfred Ghotra RN Procedures Procedure Name Priority Date/Time Associated Diagnosis Comments CT SHOULDER RIGHT WO CONTRAST Schedule Routine, Read Routine (OP Routine) 04/03/2025 12:07 PM CDT Arthritis of right shoulder EGFR Routine 04/03/2025 11:12 AM CDT Complete tear of right rotator cuff, unspecified whether traumatic COMPREHENSIVE METABOLIC PANEL Routine 04/03/2025 11:12 AM CDT Complete tear of right rotator cuff, unspecified whether traumatic MRI ABDOMEN LIVER W WO CONTRAST Schedule Routine, Read Routine (OP Routine) 01/12/2025 11:17 AM CDT Hepatic hemangioma SCREENING MAMMOGRAM BILATERAL W FUENTES Schedule Routine, Read Routine (OP Routine) 07/05/2024 10:03 AM DREDGE CAPTAIN Screening mammogram, encounter for DEXA AXIAL SKELETON BONE DENSITY 1 OR MORE SITES Schedule Routine, Read Routine (OP Routine) 07/14/2023 1:19 PM DREDGE CAPTAIN Asymptomatic menopausal state CT LUNG CANCER SCREENING Schedule Routine, Read Routine (OP Routine) 07/14/2023 1:10 PM DREDGE CAPTAIN Nicotine dependence, cigarettes, uncomplicated from Last 3 Months or Most Recently Relevant to Health Maintenance Results * CT Shoulder Right WO Contrast [...] MD IMG CT PROCEDURES Final Re sult * eGFR (04/03/2025 11:12 AM CDT) eGFR [...] Inclusion of Race in Diagnosing Kidney Disease, NASDov 2020). The CKD-EPI equation should not be used for patients with unstable renal function and has not been validated in children and those over 70. Current interpretive data was last reviewed 2021. Blood 04/03/2025 11:1 2 AM CDT 04/03/2025 12:25 PM CDT us Austin Morris MD LAB BLOOD ORDERABLES Final Result [facility] Department [place] [address] * Comprehensive metabolic panel (04/03/2025 11:12 AM CDT) Sodium 145 135 - 145 mmol/L Potassium, pl 4.6 3.3 - 4.9 mmol/L [facility] Chloride 110 97 - 110 mmol/L [facility] CO2 28 22 - 32 mmol/L [facility] Anion gap 7 2 - 15 mmol/L [facility] BUN 16 6 - 25 mg/dL [facility] Creatinine 0.72 0.60 - 1.10 mg/dL [facility] Glucose 70 70 - 199 mg/dL [facility] Comment: Interpretive Data Fasting glucose >/= 126 [...] classification and Diagnosis of Diabetes Diabetes Care 202; 46: S19-S40. Current interpretive data was last revised 2022. Calcium 9.7 8.5 - 10.3 mg/dL [facility] Bilirubin, total 0.5 0.1 - 1.2 mg/dL [facility] Protein, pl 7.1 6.5 - 8.5 g/dL [facility] Albumin 4.0 3.5 - 5.0 g/dL [facility] Alk phos 93 40 - 130 Units/L [facility] ALT 13 7 - 45 Units/L [facility] AST 14 10 - 45 Units/L [facility] Blood 04/03/2025 11:1 2 AM CDT 04/03/2025 12:25 PM CDT Austin Morris MD LAB BLOOD ORDERABLES Final Result [facility] Department [place] [address] * MRI Abdomen Liver W WO Contrast (01/12/2025 11:17 AM CDT) Anatomical Region Laterality Modality Body N/A Magnetic Resonan ce 01/26/2025 7:59 PM CDT Narrative 01/26/2025 8:12 PM CDT EXAM DESCRIPTION: MRI ABDOMEN LIVER W WO CONTRAST REASON FOR STUDY: Hepatic Hemangioma Follow up from CT: 01/01/25 Indeterminate low-density lesion in the right hepatic lobe 2.2 cm. Further assessment could be made with a nonemergent outpatient routine liver protocol MRI. Pt not c/o any symptoms at this time. TECHNIQUE: MRI of the abdomen performed without and with intravenous contrast according to the liver mass protocol. 3D MRCP images were obtained. All images stored on PACS. CONTRAST TYPE/DOSE: 19.5mL of GADOTERATE MEGLUMINE 0.5 MMOL/ML INTRAVENOUS SOLUTION (SO) injected via intravenous COMPARISON: CT abdomen pelvis 01/01/2025 FINDINGS: LOWER CHEST: No effusion. LIVER: In the tip of hepatic segment 6 there is a 2.4 cm lesion that is mildly hyperintense on T2 weighted imaging and is hypointense on T1 weighted imaging. There is discontinuous peripheral nodular enhancement that progresses to complete fill-in on the 5 minute delay. There is focal fatty infiltration of the liver near the falciform ligament. There are no worrisome hepatic lesions identified. The hepatic and portal veins are patent. GALLBLADDER: Surgically absent. BILE DUCTS: No intrahepatic or extrahepatic ductal dilatation. SPLEEN: Normal size. No focal lesions. PANCREAS: No masses. No adjacent inflammation or peripancreatic fluid collections. Pancreatic duct not dilated ADRENALS: Normal. KIDNEYS/URINARY TRACT: No solid masses. No cysts. No hydronephrosis or hydroureter. Symmetric enhancement. GI: Incompletely evaluated. The stomach is incompletely distended, however there is suspected gastric wall thickening. There is extensive colonic diverticulosis. PERITONEUM: No ascites. RETROPERITONEUM: No mass or adenopathy. VASCULATURE: No abdominal aortic aneurysm. MUSCULOSKELETAL: Lumbosacral spinal fusion hardware causes artifact. No obvious suspicious osseous lesion identified OTHER: No other abnormality. IMPRESSION: 1. The hepatic segment 6 lesion is consistent with a hemangioma. 2. The stomach is incompletely distended, however there is suspected gastric wall thickening. Recommend correlation for gastritis. THIS IS AN ELECTRONICALLY VERIFIED FINAL REPORT 01/26/2025 8:12 PM - Electronically signed by Eduardo Harrell M.D. AM: AM Report ID: [id number] Reading Location: [id number] Procedure Note Eduardo Harrell MD - 01/26/2025 EXAM DESCRIPTION: MRI ABDOMEN LIVER W WO CONTRAST REASON FOR STUDY: Hepatic Hemangioma Follow up from CT: 01/01/25 Indeterminate low-density lesion in the right hepatic lobe 2.2 cm. Further assessment could be made with a nonemergent outpatient routine liver protocol MRI. Pt not c/o any symptoms at thistime. TECHNIQUE: MRI of the abdomen performed without and with intravenous contrast according to the liver mass protocol. 3D MRCP images were obtained. All images stored on PACS. CONTRAST TYPE/DOSE: 19.5mL of GADOTERATE MEGLUMINE 0.5 MMOL/MLINTRAVENOUS SOLUTION (SO) injected via intravenous COMPARISON: CT abdomen pelvis 01/01/2025 FINDINGS: LOWER CHEST: No effusion. LIVER: In the tip of hepatic segment 6 there is a 2.4 cm lesion that is mildly hyperintense on T2 weighted imaging and is hypointense on B2rxyomgdz imaging. There is discontinuous peripheral nodular enhancement that progresses to complete fill-in on the 5 minute delay. There is focalfatty infiltration of the liver near the falciform ligament. There are noworrisome hepatic lesions identified. The hepatic and portal veins are patent. GALLBLADDER: Surgically absent. BILE DUCTS: No intrahepatic or extrahepatic ductal dilatation. SPLEEN: Normal size. No focal lesions. PANCREAS: No masses. No adjacent inflammation or peripancreatic fluid collections. Pancreatic duct not dilated ADRENALS: Normal. KIDNEYS/URINARY TRACT: No solid masses. No cysts. No hydronephrosis or hydroureter. Symmetric enhancement. GI: Incompletely evaluated. The stomach is incompletely distended,however there is suspected gastric wall thickening. There is extensive colonic diverticulosis. PERITONEUM: No ascites. RETROPERITONEUM: No mass or adenopathy. VASCULATURE: No abdominal aortic aneurysm. MUSCULOSKELETAL: Lumbosacral spinal fusion hardware causes artifact. No obvious suspicious osseous lesion identified OTHER: No other abnormality. IMPRESSION: 1. The hepatic segment 6 lesion is consistent with a hemangioma. 2. The stomach is incompletely distended, however there is suspectedgastric wall thickening. Recommend correlation for gastritis. THIS IS AN ELECTRONICALLY VERIFIED FINAL REPORT 01/26/2025 8:12 PM - Electronically signed by Eduardo Harrell M.D. AM: AM Report ID: [id number] Reading Location: [place] [address] Breanne Tirado NP IMG MRI PROCEDURES Final R esult * Screening Mammogram Bilateral W Fuentes (07/05/2024 10:03 AM DREDGE CAPTAIN) Anatomical Region Laterality Modality Breast Bilateral Mammography 07/05/2024 10:3 8 AM DREDGE CAPTAIN Impressions 07/05/2024 10:38 AM DREDGE CAPTAIN No evidence of malignancy in either breast. FINAL ASSESSMENT: BI-RADS Category 1: Negative. RECOMMENDATION: Recommend return for annual screening mammogram in 12 months. Electronically signed by: Pantera Chang M.D. Narrative 07/05/2024 10:38 AM DREDGE CAPTAIN EXAMINATION: BILATERAL SCREENING MAMMOGRAM COMPARISON: 07/09/2023, 04/13/2022, 01/23/2021 TECHNIQUE: Full-field 2D and digital breast tomosynthesis (DBT) images were obtained. CAD was utilized. BREAST PARENCHYMAL COMPOSITION: There are scattered areas of fibroglandular density. FINDINGS: There is no suspicious mass, calcification, or distortion in either breast. us Self Screening Mammogram IMG MAMMO PROCEDURES Fi nal Result * Dexa Axial Skeleton Bone Density 1 Or 2 Site (07/14/2023 1:19 PM DREDGE CAPTAIN) Anatomical Region Laterality Modality Body N/A Other 07/14/2023 6:31 PM DREDGE CAPTAIN Narrative 07/14/2023 6:32 PM DREDGE CAPTAIN EXAM DESCRIPTION: DEXA AXIAL SKELETON BONE DENSITY 1 OR MORE SITES REASON FOR STUDY: 68 y/o year old F with given history of: asymptomatic menopausal state Screening. Hide Salter/Model: [employer] (S/N [id number]) CLINICAL INFORMATION: Current height: 64 inches Maximum height: 65.5 inches Weight: 195 pounds Risk factors: Postmenopausal COMPARISON: None available FINDINGS: AP LUMBAR SPINE L1-L4: Total BMD is 1.265 g/cm2 T-score is 2.0 LEFT HIP: Total BMD is 0.980 g/cm2 T-score is 0.3 Femoral neck BMD is 0.874 g/cm2 T-score is 0.2 FRAX: FRAX not reported due to T-scores of hip, femoral neck and/or spine being at or above -1.0 (Normal). IMPRESSION: Normal bone mass. REFERENCE: Bone mineral density: Normal (T-score above or = -1.0) Low bone mass (T-score between -1.0 and -2.5) replaces the previously used term osteopenia Osteoporosis (T-score = or below -2.5) Medical evaluation for secondary causes of low bone mineral density may be appropriate. FRAX is a World Health Organization validated fracture risk assessment tool that calculates a person's 10 year probability of a major osteoporosis related fracture and hip fracture. According to the National Osteoporosis Foundation guidelines, postmenopausal women and men age 50 or older with low bone mass and a 10 year probability of a major osteoporosis related fracture = or greater than 20% or a 10 year probability of a hip fracture = or greater than 3% should be considered for treatment. For further information, including treatment recommendations, please refer to the 2019 ISCD Official Positions (http://www.iscd.org) and the NOF's Clinician's Guide to Prevention and Treatment of Osteoporosis (http://www.nof.org/professionals/clinical-guidelines) THIS IS AN ELECTRONICALLY VERIFIED FINAL REPORT 07/14/2023 6:32 PM - Electronically signed by José Manuel Vanessa M.D. MF: CHASE Report ID: [id number] Reading Location: [place] [id number] Procedure Note José Manuel Vanessa MD - 07/14/2023 EXAM DESCRIPTION: DEXA AXIAL SKELETON BONE DENSITY 1 OR MORE SITES REASON FOR STUDY: 68 y/o year old F with given history of:asymptomatic menopausal state Screening. Hide Salter/Model: [employer] (S/N [id number]) CLINICAL INFORMATION: Current height: 64 inches Maximum height: 65.5 inches Weight: 195 pounds Risk factors: Postmenopausal COMPARISON: None available FINDINGS: AP LUMBAR SPINE L1-L4: Total BMD is 1.265 g/cm2 T-score is 2.0 LEFT HIP: Total BMD is 0.980 g/cm2 T-score is 0.3 Femoral neck BMD is 0.874 g/cm2 T-score is 0.2 FRAX: FRAX not reported due to T-scores of hip, femoral neck and/or spine beingat or above -1.0 (Normal). IMPRESSION: Normal bone mass. REFERENCE: Bone mineral density: Normal (T-score above or = -1.0) Low bone mass (T-score between -1.0 and -2.5) replaces thepreviously used term osteopenia Osteoporosis (T-score = or below -2.5) Medical evaluation for secondary causes of low bone mineral density may be appropriate. FRAX is a World Health Organization validated fracture risk assessmenttool that calculates a person's 10 year probability of a major osteoporosisrelated fracture and hip fracture. According to the National OsteoporosisFoundation guidelines, postmenopausal women and men age 50 or older with low bonemass and a 10 year probability of a major osteoporosis related fracture = or greater than 20% or a 10 year probability of a hip fracture = or greaterthan 3% should be considered for treatment. For further information, including treatment recommendations, please referto the 2019 ISCD Official Positions (http://www.iscd.org) and the NOF's Clinician's Guide to Prevention and Treatment of Osteoporosis (http://www.nof.org/professionals/clinical-guidelines) THIS IS AN ELECTRONICALLY VERIFIED FINAL REPORT 07/14/2023 6:32 PM - Electronically signed by José Manuel Vanessa M.D. MF: CHASE Report ID: [id number] Reading Location: [id number] Albert Ely MD IMG DXA PROCEDURES Final Result * CT Lung Cancer Screening (07/14/2023 1:10 PM DREDGE CAPTAIN) Anatomical Region Laterality Modality Chest N/A Computed Tomogra phy 07/15/2023 10:5 0 AM DREDGE CAPTAIN Narrative 07/15/2023 10:57 AM DREDGE CAPTAIN EXAM DESCRIPTION: CT LUNG CANCER SCREENING REASON FOR STUDY: Screening CT of the chest in a former smoker with a 22.5 pack year smoking history. Additional history: None. TECHNIQUE: Low dose CT scan of the chest was performed without intravenous contrast using helical scanning technique. The exam extends from the lung apices through the lung bases. Automatic exposure control was used as a dose optimization technique. NOTE: This study was performed for the specific purposes of lung cancer screening and is not an alternative to diagnostic chest CT. RADIATION DOSE: CT dose index volume (CTDIvol) = 1.94 mGy COMPARISON: None FINDINGS: SMOKING RELATED LUNG DISEASE: There are mild emphysematous changes of lungs with scattered mild subsegmental atelectasis and scarring. There is no definite evidence of a pneumothorax. There is mild biapical pleural thickening and scarring. The central airways are grossly patent. There is no definite evidence of focal consolidation or pleural effusion. LUNG NODULES: There are multiple scattered small pulmonary nodules noted, which are predominantly in the bilateral upper lobes. For example there is a 0.3 cm right upper lobe pulmonary nodule (axial image 48). There is a 0.3 cm right upper lobe ground-glass pulmonary nodule (axial image 63). There is a subpleural 0.3 cm right upper lobe ground-glass pulmonary nodule (axial image 68). There is a 0.4 cm ground-glass pulmonary nodule in the posterior right upper lobe (axial image 84). There is a subpleural 0.3 cm left upper lobe pulmonary nodule (axial image 45). There is a 0.3 cm left upper lobe ground-glass pulmonary nodule (axial image 47). There is a 0.3 cm left upper lobe pulmonary nodule (axial image 55). There is a 0.4 cm left upper lobe pulmonary nodule (axial image 75). There is a subpleural 0.2 cm left lower lobe pulmonary nodule (axial image 155). CORONARY ARTERY CALCIFICATION: Present. OTHER: The heart size is normal. There is no definite evidence of a pericardial effusion. There are minimal atherosclerotic changes of the coronary vessels. There are mild atherosclerotic changes of thoracic aorta. There is no definite unenhanced CT evidence of mediastinal, hilar, or axillary lymphadenopathy. There are scattered subcentimeter mediastinal lymph nodes noted with the largest measuring 0.5 cm in the right paratracheal region (axial image 106). There are bilateral Bochdalek's hernias. The bilateral adrenal glands are grossly symmetrical and unremarkable. The gallbladder is surgically absent. There is mild osteopenia. There is a minimal to mild dextroscoliotic curvature of the spine with degenerative changes. IMPRESSION: Multiple scattered small pulmonary nodules with the largest measuring up to 0.4 cm. Mild emphysematous changes of lungs with scattered mild subsegmental atelectasis and scarring. Lung-RADS category 2: Benign appearance or behavior. Recommendation: Low dose Screening CT of chest in 12 months. THIS IS AN ELECTRONICALLY VERIFIED FINAL REPORT 07/15/2023 10:57 AM - Electronically signed by Paula Wiggins D.O. PS: PS Report ID: [id number] Reading Location: [id number] Procedure Note Paula Wiggins DO - 07/15/2023 EXAM DESCRIPTION: CT LUNG CANCER SCREENING REASON FOR STUDY: Screening CT of the chest in a former smoker with a22.5 pack year smoking history. Additional history: None. TECHNIQUE: Low dose CT scan of the chest was performed without intravenous contrast using helical scanning technique. The exam extends from the lung apices through the lung bases. Automatic exposure control was used as adose optimization technique. NOTE: This study was performed for the specific purposes of lung cancer screening and is not an alternative to diagnostic chest CT. RADIATION DOSE: CT dose index volume (CTDIvol) = 1.94 mGy COMPARISON: None FINDINGS: SMOKING RELATED LUNG DISEASE: There are mild emphysematous changes oflungs with scattered mild subsegmental atelectasis and scarring. There is no definite evidence of a pneumothorax. There is mild biapical pleural thickening and scarring. The central airways are grossly patent. Thereis no definite evidence of focal consolidation or pleural effusion. LUNG NODULES: There are multiple scattered small pulmonary nodulesnoted, which are predominantly in the bilateral upper lobes. For example thereis a 0.3 cm right upper lobe pulmonary nodule (axial image 48). There is a 0.3cm right upper lobe ground-glass pulmonary nodule (axial image 63). There patricio subpleural 0.3 cm right upper lobe ground-glass pulmonary nodule (axialimage 68). There is a 0.4 cm ground-glass pulmonary nodule in the posteriorright upper lobe (axial image 84). There is a subpleural 0.3 cm left upper lobe pulmonary nodule (axial image 45). There is a 0.3 cm left upper lobe ground-glass pulmonary nodule (axial image 47). There is a 0.3 cm leftupper lobe pulmonary nodule (axial image 55). There is a 0.4 cm left upper lobe pulmonary nodule (axial image 75). There is a subpleural 0.2 cm leftlower lobe pulmonary nodule (axial image 155). CORONARY ARTERY CALCIFICATION: Present. OTHER: The heart size is normal. There is no definite evidence of a pericardial effusion. There are minimal atherosclerotic changes of the coronary vessels. There are mild atherosclerotic changes of thoracicaorta. There is no definite unenhanced CT evidence of mediastinal, hilar, oraxillary lymphadenopathy. There are scattered subcentimeter mediastinal lymphnodes noted with the largest measuring 0.5 cm in the right paratracheal region (axial image 106). There are bilateral Bochdalek's hernias. The bilateral adrenal glands are grossly symmetrical and unremarkable. The gallbladder is surgicallyabsent. There is mild osteopenia. There is a minimal to mild dextroscoliotic curvature of the spine with degenerative changes. IMPRESSION: Multiple scattered small pulmonary nodules with the largest measuring upto 0.4 cm. Mild emphysematous changes of lungs with scattered mild subsegmental atelectasis and scarring. Lung-RADS category 2: Benign appearance or behavior. Recommendation: Low dose Screening CT of chest in 12 months. THIS IS AN ELECTRONICALLY VERIFIED FINAL REPORT 07/15/2023 10:57 AM - Electronically signed by Paula Wiggins D.O. PS: PS Report ID: [id number] Reading Location: [place] [id number] Albert Ely MD IMG CT PROCEDURES Final R esult from Last 3 Months or Most Recently Relevant to Health Maintenance Additional Health Concerns Active Problems Noted Date Diagnosed Date Autogenerated Problem 01/31/2025 Insurance [facility]ICARE [facility] Address: [facility] [id number] [place] [address] MEDICARE [facility] [employer] MEDICARE [facility] Advance Directives For more information, please contact: [phone] Documents on File Type Date Recorded Patient Donor Services Specialist Expl anation Power of Botany Technician 08/17/2023 9:11 AM Care Teams Manager Editorial Relationship Specialty Start Date End Date Albert Ely MD [address] [place] [id number] PCP - General Family Medicine 05/25/23 Albert Ely MD [address] [place] [id number] Family Medicine 05/25/23
== END 2025-04-04 09:55 | disposition home or self-care (01) ==
PROVIDERS: PCP Family Medicine
DX: L40.0 Psoriasis vulgaris (principal)
CPT/HCPCS: 86480